=== PATIENT | female | born 1965 | race Caucasian/White ===

== ENCOUNTER 2017-05-26 10:30 | Inpatient (IN) | payer OTHER ==
[~2017-05-26] VITALS: Ht 162.6 cm; Wt 88.0 kg
[2017-06-13 11:32] VITALS: BMI 34.4
[2017-06-14] VITALS (15 sets, daily range): BP systolic 121–166; BP diastolic 64–86; PULSE 68–84; RESP 16–23; Ht 162.6 cm; Wt 88.0 kg
[2017-06-14] MEDS ORDERED: CEFAZOLIN 1 GM INJ ONE (07:00)
[2017-06-14] MEDS ORDERED: ROCURONIUM 50 MG INJ ONE ×3 (07:00→11:05)
[2017-06-14] MEDS ORDERED: DESFLURANE 15 MIN ONE (07:00)
[2017-06-14] MEDS ORDERED: D5-NS + KCL 20 MEQ 1,000 ML IV SCH (07:30)
[2017-06-14] MEDS ORDERED: CEFAZOLIN 2 GM/50 ML (PMX) 50 ML IVPB ONE (07:30)
[2017-06-14] MEDS ORDERED: Metronidazole 500 MG in NS 100 ML IVPB ONE (07:30)
[2017-06-14] MEDS ORDERED: HYDR-906 PO (08:34)
[2017-06-14] MEDS ORDERED: ASPI-664 PO (08:34)
[2017-06-14] MEDS ORDERED: ATOR40TA68 PO (08:34)
[2017-06-14] MEDS ORDERED: LOSA100T7 PO (08:35)
[2017-06-14] MEDS ORDERED: ATEN50TA PO (08:35)
[2017-06-14] MEDS ORDERED: SITA1TAB5 PO (08:36)
[2017-06-14] MEDS ORDERED: LEVO75TA65 PO (08:37)
[2017-06-14] MEDS ORDERED: MAXZ25 PO (08:38)
[2017-06-14] MEDS ORDERED: VASOPRESSIN 20 UNITS INJ ONE (09:10)
[2017-06-14] MEDS ORDERED: THROMBIN 5000 UNIT VIAL ONE (09:10)
[2017-06-14] MEDS ORDERED: METHYLENE BLUE 1% 10 ML INJ ONE (09:10)
[2017-06-14 09:28] LABS: BASOPHILS % 0.3 % (0.0-2.0); EOSINOPHILS # 0.2 10^3/ul (0.0-0.5); EOSINOPHILS % 2.9 % (0.0-7.0); HEMATOCRIT 37.1 % (37.0-47.0); HEMOGLOBIN 12.2 g/dl (12.0-16.0); LYMPHOCYTES # 1.6 10^3/ul (0.8-2.9); LYMPHOCYTES % 25.5 % (15.0-51.0); MEAN CORPUSCULAR HEMOGLOBIN 24.9 pg (29.0-33.0); MEAN CORPUSCULAR HGB CONC 32.9 g/dl (32.0-37.0); MEAN CORPUSCULAR VOLUME 75.7 fl (82.0-101.0); MONOCYTE # 0.4 10^3/ul (0.3-0.9); MONOCYTES % 6.2 % (0.0-11.0); NEUTROPHILS % 64.9 % (39.0-77.0); PLATELET COUNT 258 10^3/UL (140-415); RED CELL DISTRIBUTION WIDTH 12.9 % (11.5-14.5); WHITE BLOOD COUNT 6.3 10^3/ul (4.8-10.8)
[2017-06-14 09:31] LABS: ADD UMIC YES; UR ASCORBIC ACID NEGATIVE (NEGATIVE); UR BILIRUBIN (Dip) NEGATIVE (NEGATIVE); UR BLOOD (Dip) 1+ mg/dL (NEGATIVE); UR CLARITY CLEAR (CLEAR); UR COLOR YELLOW (YELLOW); UR GLUCOSE (Dip) NEGATIVE (NEGATIVE); UR KETONES (Dip) NEGATIVE (NEGATIVE); UR LEUKOCYTE ESTERASE (Dip) NEGATIVE Leu/ul (NEGATIVE); UR NITRITE (Dip) NEGATIVE (NEGATIVE); UR RBC 4 /HPF (0-5); UR SPECIFIC GRAVITY (Dip) 1.012 (1.003-1.030); UR TOTAL PROTEIN (Dip) NEGATIVE (NEGATIVE); UR UROBILINOGEN (Dip) NEGATIVE (NEGATIVE)
[2017-06-14] MEDS ORDERED: ONDANSETRON 4 MG INJ ONE (09:31)
[2017-06-14] MEDS ORDERED: GLYCOPYRROLATE 0.4 MG INJ ONE (09:31)
[2017-06-14] MEDS ORDERED: MIDAZOLAM 1 MG/ML 2 ML INJ ONE (09:31)
[2017-06-14] MEDS ORDERED: PROPOFOL 20 ML ONE (09:31)
[2017-06-14] MEDS ORDERED: NEOSTIGMINE 3 MG/3 ML SYRINGE ONE (09:31)
[2017-06-14] MEDS ORDERED: METOCLOPRAMIDE 10 MG INJ ONE (09:31)
[2017-06-14] MEDS ORDERED: HYDROmorphONE 2 MG/ML SYG ONE (09:32)
[2017-06-14 09:46] LABS: PROTIME 13.2 Sec (12.2-14.2)
[2017-06-14 09:52] LABS: ALBUMIN 3.6 g/dl (3.3-4.9); ALBUMIN/GLOBULIN RATIO 0.97; BILIRUBIN,INDIRECT 0.2 mg/dl (0-1.1); BILIRUBIN,TOTAL 0.2 mg/dl (0.2-1.3); TOTAL PROTEIN 7.3 g/dl (6.1-8.1)
--- NOTE | 2017-06-14 09:55 | HPN ---
Date/Time of Note Date/Time of Note DATE: 06/14/17 TIME: 09:55 Interval H&P Admission Note Pt. seen H&P reviewed: No system changes HAILY KIMBROUGH MD Jun 14, 2017 09:55
[2017-06-14 10:01] LABS: CALCIUM 8.6 mg/dl (8.4-10.2); CREATININE 1.12 mg/dl (0.44-1.00)
--- NOTE | 2017-06-14 10:05 | HP ---
Date/Time of Note Date/Time of Note DATE: 06/14/17 TIME: 10:04 Assessment/Plan VTE Prophylaxis VTE Prophylaxis Intervention: SCD's Lines/Catheters IV C[facility]ter Type (from [facility] Peripheral IV HPI/ROS Admit Date/Time Admit Date/Time Jun 14, 2017 at 07:38 Hx of Present Illness Haily Kimbrough M.D. 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 Pet/CT shows extrauterine disease and a solitary 9 mm RLL chest lesion. Medical history/ROS: Hypertension, Thyroid d/o, Diabetes,High cholesterol. Surgical history: no significant abdominal procedures. Flu yes, 07/2016, Pneumococcal no, declined Allergies: 05/01/17 Lisinopril medications Family Hx: non-contributary Social HX: non-contributary ROS: as above Colonoscopy: never Physical Examination Vitals (05/01/2017): Weight 199, Height 62, BP 120/80, BMI 36.4. General: Alert. HEENT: Pupils are equal, round, reactive to light and accommodation. Neck: Supple with no masses of lymphadenopathy. Breast: Deferred due to recent examination and responsibility of primary care physician. Chest: Clear to auscultation and percussion with no rales, ronchi, or wheeze. Heart: Normal rhythm with no murmur. Abdominal exam: nontender, nondistended, no masses, no ascites. location: N/A Pelvic exam: Uterus enlarged and globlar, no masses or cul-de-sac nodularity noted Rectal: confirmatory with pelvic exam. Neurological: Grossly intact Assessment: endometrial cancer stage to be determined Plan: CARLA/BSO LND possible cytoreduction, possible BR. Possible chest All risks and benefits of this procedure have been discussed in detail with the patient, as well as alternative treatment strategies and their implications. The patient is aware that there is some possibility of a blood transfusion and its associated risks and benefits. She wishes to proceed and gives her informed consent. Haily Kimbrough M.D. PMH/Family/Social Social History Smoking Status: Never smoker Exam/Review of Systems Vital Signs Vitals Vital Signs Date Time Temp Pulse Resp B/P Pulse Ox O2 Delivery O2 Flow Rate FiO2 06/14/17 08:58 97.6 68 19 166/79 100 Room Air Labs Result Diagram: 06/14/1782406/14/17824 Medications Medications Current Medications Potassium Chloride/Dextrose/ Sod Cl (D5-NS + KCl 20 Meq) 1,000 ml @ 100 mls/hr Q10H IV ; Start 06/14/17 at 07:30; Stop 06/14/17 at 23:00 HAILY KIMBROUGH MD Jun 14, 2017 10:05
[2017-06-14 11:44] LABS: CANCER ANTIGEN 125 26.7 U/ml (0.0-35.0)
[2017-06-14] MEDS ORDERED: METOPROLOL 5 MG INJ ONE (11:57)
[2017-06-14] MEDS ORDERED: ROPIVACAINE 0.5 % 30 ML VIAL ONE (14:13)
[2017-06-14] MEDS ORDERED: METOCLOPRAMIDE 10 MG INJ IV PRN (15:00)
[2017-06-14] MEDS ORDERED: LABETALOL HCL 20MG INJ IV PRN (15:00)
[2017-06-14] MEDS ORDERED: ONDANSETRON 4 MG INJ IV PRN ×2 (15:00)
[2017-06-14] MEDS ORDERED: CEFAZOLIN 1 GM in SOD CHLORIDE 0.9% 100 ML IVPB SCH (15:00)
[2017-06-14] MEDS ORDERED: hydrALAzine 20 MG INJ IV PRN (15:00)
[2017-06-14] MEDS ORDERED: MEPERIDINE 25 MG INJ IV PRN (15:00)
[2017-06-14] MEDS ORDERED: DIPHENHYDRAMINE 50 MG INJ IV PRN ×2 (15:00)
[2017-06-14] MEDS ORDERED: HYDROmorphONE (0.2 MG/ML) 10ML SYG IV PRN ×3 (15:00)
--- NOTE | 2017-06-14 15:10 | OPPN ---
Date/Time of Note Date/Time of Note DATE: 06/14/17 TIME: 15:06 Operative Report Preoperative Diagnosis endometrial ca Postoperative Diagnosis same st IV, ureteral stricture Operation/Procedure Performed Extended hyst/BSO LND, UDx2, Pel/aortic LND, Omentectomy, cytoreduction Anesthesia Type: general Estimated blood loss: 250 - 300 ml's Transfusion Required: no Specimens multiple Grafts/Implants na Complications: no HAILY KIMBROUGH MD Jun 14, 2017 15:10
[2017-06-14 16:38] LABS: ABNORMAL IP MESSAGE 1; HEMATOCRIT 35.4 % (37.0-47.0); HEMOGLOBIN 11.4 g/dl (12.0-16.0); MEAN CORPUSCULAR HEMOGLOBIN 24.6 pg (29.0-33.0); MEAN CORPUSCULAR HGB CONC 32.2 g/dl (32.0-37.0); MEAN CORPUSCULAR VOLUME 76.5 fl (82.0-101.0); MEAN PLATELET VOLUME 10.9 fl (7.4-10.4); PLATELET COUNT 318 10^3/UL (140-415); RED BLOOD COUNT 4.63 10^6/ul (4.20-5.40); RED CELL DISTRIBUTION WIDTH 13.2 % (11.5-14.5)
[2017-06-14 16:50] LABS: HOLD TRANSMISSIONS 1; POSITIVE DIFF @See below
[2017-06-14 16:57] LABS: CREATININE 0.92 mg/dl (0.44-1.00); POTASSIUM 3.6 mmol/L (3.5-5.1)
[2017-06-14 16:59] LABS: CALCIUM 7.6 mg/dl (8.4-10.2)
[2017-06-14] MEDS ORDERED: DEXTROSE 50% 50 ML SYRINGE IV PRN ×2 (17:30)
[2017-06-14] MEDS ORDERED: GLUCOSE GEL 15 GRAM TUBE PO PRN ×2 (17:30)
[2017-06-14] MEDS ORDERED: GLUCAGON 1 MG INJ IM PRN (17:30)
[2017-06-14] MEDS ORDERED: GLUCOSE GEL 15 GRAM TUBE BUCCAL PRN (17:30)
--- NOTE | 2017-06-14 17:41 | RADRPT ---
PROCEDURE: Portable chest x-ray. CLINICAL INDICATION: 52 years of age, female. Central line placement. TECHNIQUE: Portable AP view of the chest. COMPARISON: None available. FINDINGS: There is a right internal jugular central venous line with the tip over the inferior right atrium. Suggest withdrawing the line 6.6 cm to the cavoatrial junction. Enteric tube courses below diaphragm with tip not imaged. Cardiomediastinal contours are normal. Decreased lung volumes with vascular crowding. Negative for focal lung consolidation. Negative for pleural effusion or pneumothorax. No acute bony abnormality. IMPRESSION: Right internal jugular line is situated low with tip over right atrium. Suggest withdrawing the deshawn e 6.6 cm to the cavoatrial junction. Enteric tube in good position. Decreased lung volumes. RPTAT: HCTS Physician Dwight Date Time Electronically viewed and signed by Physician Dwight on 06/14/2017 17:41 /
[2017-06-14] MEDS ORDERED: INSULIN ASPART [NOVOLOG] 3 ML PEN SC SCH (18:00)
[2017-06-14] MEDS: CEFAZOLIN 1 GM/50 ML (PMX) 50 ML IVPB SCH (18:42)
[2017-06-14 18:46] LABS: LYMPHOCYTES # 1.5 10^3/ul (0.8-2.9); MONOCYTE # 0.6 10^3/ul (0.3-0.9); MONOCYTES % (M) 2 % (0-11)
[2017-06-14 18:47] LABS: PLATELET ESTIMATE NORMAL
[2017-06-14] MEDS: HYDROmorphONE 1 MG/ML SYG IV PRN (18:55)
[2017-06-14] MEDS: POTASSIUM CHLORIDE 20 MEQ in LACTATED RINGER'S 1,000 ML IV SCH ×2 (20:00→21:28)
[2017-06-14] MEDS: metroNIDAZOLE 500 MG/NS (PMX) 100 ML IVPB SCH ×2 (20:01→23:00)
[2017-06-14] MEDS: FAMOTIDINE 20 MG INJ IV SCH (21:35)
--- NOTE | 2017-06-14 21:44 | HP ---
DATE OF ADMISSION: 06/14/2017 CHIEF COMPLAINT AND HISTORY OF PRESENT ILLNESS: The patient is a 52-year-old female with stage IV uterine cancer. The patient is being followed by Dr. Amaral as an outpatient. Patient recently had an endometrial biopsy and also had a PET-CT scan, which showed extrauterine disease as well as solitary 9 mm right lower lobe chest lesion. The patient was brought into the hospital today and underwent hysterectomy, bilateral salpingo oophorectomy, omentectomy and cytoreduction. The patient was also noted to have ureteral stricture. The patient underwent ureteral dissection bilaterally and also pelvic and aortic lymph node dissection. Please review operative report for further details. NG tube was placed. The patient is being kept n.p.o. and has been transferred to medical-surgical floor for further care. PAST MEDICAL HISTORY: Significant for: 1. Hypertension. 2. Diabetes. 3. Dyslipidemia. 4. Hypothyroidism. REVIEW OF SYSTEMS: The patient denied any chest pain, no resting leg pain. Patient remains awake, alert, and follows simple commands. Moves all extremities. No reported headache. No reported cough or shortness of breath prior to surgery. Review of systems were limited due to patient's postoperative condition. FAMILY HISTORY: Noncontributory. ALLERGIES: LISINOPRIL. SOCIAL HISTORY: No smoking. No alcohol. PHYSICAL EXAMINATION: GENERAL: Patient is conscious, awake, alert. VITAL SIGNS: Temperature 98, pulse 97, respirations 16, blood pressure 126/86, O2 sat 97 percent on room air. HEENT: No eye discharge or redness noted. NECK: No mass. CHEST: Fairly clear. CV: S1, S2 normal. No murmur. ABDOMEN: Patient is status post surgery. Examination was deferred due to recent surgery. EXTREMITIES: No edema. Distal pulses palpable. SKIN: Without acute rash. NEUROLOGIC: The patient is awake, alert, follows simple commands. LABS: Prior to surgery. WBC 6.3, hemoglobin 12.2, platelets 258. Sodium 142, potassium 4, BUN 11, creatinine 1.1. Glucose 141, calcium 8.6. AST 32, ALT 32, alk phos 70. Chest x-ray revealed the right IJ line with tip over right atrium. IMPRESSION: 1. Stage IV endometrial cancer, status post total abdominal hysterectomy, bilateral salpingo-oophorectomy, ureteral dissection, cytoreduction and lymph node dissection. 2. Hypertension. 3. Diabetes mellitus. 4. Dyslipidemia. 5. Hypothyroidism. PLAN: Patient admitted to the medical floor. The patient will be kept n.p.o. and will be started on sliding scale insulin. The patient's blood sugar is high due to receiving D5W preoperatively, but now she is getting ringer lactate. We will continue sliding scale. Prior to admission, the patient used to be on Janumet. We will hold off for antihypertensive medication for now and we will use IV hydralazine on p.r.n. basis. We will also hold off on Levoxyl for now until she is able to take p.o. If the patient needs to be on prolonged n.p.o. status, we will switch her to IV Levoxyl. We will use SCD for DVT prophylaxis. We will continue to follow her from medical standpoint. Dictated By: Raymundo Dunlap MD /[email or web address]/becca /Document#: [id number] ENOC
[2017-06-15 00:33] VITALS: BP 133/84; RESP 16
[2017-06-15] MEDS: HYDROmorphONE 1 MG/ML SYG IV PRN ×4 (00:49→19:23)
[2017-06-15] MEDS: CEFAZOLIN 1 GM/50 ML (PMX) 50 ML IVPB SCH ×2 (00:49→09:17)
[2017-06-15] MEDS ORDERED: ACCU-CHEK XX SCH (02:00)
[2017-06-15] MEDS: metroNIDAZOLE 500 MG/NS (PMX) 100 ML IVPB SCH (03:59)
[2017-06-15] MEDS: POTASSIUM CHLORIDE 20 MEQ in LACTATED RINGER'S 1,000 ML IV SCH ×4 (04:00→22:06)
[2017-06-15] MEDS ORDERED: INSULIN ASPART [NOVOLOG] 3 ML PEN SC SCH (06:00)
[2017-06-15 06:06] LABS: BASOPHILS % 0.1 % (0.0-2.0); HEMOGLOBIN 10.5 g/dl (12.0-16.0); LYMPHOCYTES # 1.3 10^3/ul (0.8-2.9); LYMPHOCYTES % 11.6 % (15.0-51.0); MEAN CORPUSCULAR HEMOGLOBIN 24.7 pg (29.0-33.0); MEAN CORPUSCULAR HGB CONC 32.8 g/dl (32.0-37.0); MEAN CORPUSCULAR VOLUME 75.3 fl (82.0-101.0); MEAN PLATELET VOLUME 10.7 fl (7.4-10.4); MONOCYTE # 0.8 10^3/ul (0.3-0.9); MONOCYTES % 6.7 % (0.0-11.0); NEUTROPHILS % 81.3 % (39.0-77.0); PLATELET COUNT 258 10^3/UL (140-415); RED BLOOD COUNT 4.25 10^6/ul (4.20-5.40); RED CELL DISTRIBUTION WIDTH 13.2 % (11.5-14.5); WHITE BLOOD COUNT 11.5 10^3/ul (4.8-10.8)
[2017-06-15 06:21] LABS: INR 1.11; PROTIME 14.3 Sec (12.2-14.2); PT RATIO 1.1
[2017-06-15 06:27] LABS: ALBUMIN 2.8 g/dl (3.3-4.9); ALBUMIN/GLOBULIN RATIO 0.93; BILIRUBIN,INDIRECT 0.2 mg/dl (0-1.1); BILIRUBIN,TOTAL 0.2 mg/dl (0.2-1.3); CALCIUM 7.9 mg/dl (8.4-10.2); CREATININE 1.06 mg/dl (0.44-1.00); POTASSIUM 4.3 mmol/L (3.5-5.1); TOTAL PROTEIN 5.8 g/dl (6.1-8.1)
[2017-06-15] MEDS: Insulin NOVOLOG SS MILD Algorithm (NPO/TPN/ENTERAL FEEDS) SC SCH ×4 (06:27→23:55)
[2017-06-15 07:43] VITALS: BP 118/74; RESP 18
[2017-06-15] MEDS: FAMOTIDINE 20 MG INJ IV SCH ×2 (09:16→21:27)
[2017-06-15] MEDS ORDERED: metroNIDAZOLE 500 MG/NS (PMX) 100 ML IVPB SCH (12:00)
[2017-06-15 14:45] VITALS: BP 133/73; RESP 18
--- NOTE | 2017-06-15 17:21 | PN ---
Date/Time of Note Date/Time of Note DATE: 06/15/17 TIME: 17:17 Assessment/Plan VTE Prophylaxis VTE Prophylaxis Intervention: other Lines/Catheters IV Catheter Type (from Nrsg): Central Line Central line still needed: Yes Urinary Cath still in place: Yes Reason Cath still needed: urinary retention Assessment/Plan Assessment/Plan 1. Stage IV endometrial cancer, status post total abdominal hysterectomy, bilateral salpingo-oophorectomy, ureteral dissection, cytoreduction and lymph node dissection. 2. Hypertension. 3. Diabetes mellitus. 4. Dyslipidemia. 5. Hypothyroidism. ANJANA Dunlap Subjective 24 Hr Interval Summary Free Text/Dictation Constitutional: requiring IVF, requiring O2 Respiratory: cough, no complaints Cardiovascular: no complaints Gastrointestinal: pain Genitourinary: no complaints Musculoskeletal: no complaints Exam/Review of Systems Vital Signs Vitals Vital Signs Date Time Temp Pulse Resp B/P Pulse Ox O2 Delivery O2 Flow Rate FiO2 06/15/17 14:45 99.2 100 18 133/73 94 06/14/17 17:11 Room Air Intake and Output 06/14/17 06/14/17 06/15/17 15:00 23:00 07:00 Intake Total 3250 ml 150 ml 1310 ml Output Total 750 ml 900 ml Balance 2500 ml 150 ml 410 ml Exam Constitutional: alert, obese, oriented Respiratory: diminished breath sounds Cardiovascular: nl pulses, regular rate and rhythm Gastrointestinal: soft, tender (surgical abdomen) Musculoskeletal: nl extremities to inspection Extremities: normal pulses Neurological: nl mental status, nl speech Results Result Diagram: 06/15/17 0532 06/15/17 0532 Results 24 hrs Laboratory Tests Test 06/14/17 20:07 06/15/17 02:26 06/15/17 05:25 06/15/17 05:32 Bedside Glucose 276 H 215 Lab Scanned Report LAB White Blood Count 11.5 #H Red Blood Count 4.25 Hemoglobin 10.5 L Hematocrit 32.0 L Mean Corpuscular Volume 75.3 L Mean Corpuscular Hemoglobin 24.7 L Mean Corpuscular Hemoglobin Concent 32.8 Red Cell Distribution Width 13.2 Platelet Count 258 Mean Platelet Volume 10.7 H Neutrophils % 81.3 H Lymphocytes % 11.6 L Monocytes % 6.7 Eosinophils % 0.0 Basophils % 0.1 Nucleated Red Blood Cells % 0.0 Neutrophils # (Manual) 9 H Lymphocytes # 1.3 Monocytes # 0.8 Eosinophils # 0.0 Basophils # 0.0 Nucleated Red Blood Cells # 0.0 Prothrombin Time 14.3 H Prothrombin Time Ratio 1.1 INR International Normalized Ratio 1.11 Sodium Level 138 Potassium Level 4.3 Chloride Level 104 Carbon Dioxide Level 27 Anion Gap 11 Blood Urea Nitrogen 11 Creatinine 1.06 H Glucose Level 209 Calcium Level 7.9 L Total Bilirubin 0.2 Direct Bilirubin 0.00 Indirect Bilirubin 0.2 Aspartate Amino Transf (AST/SGOT) 23 Alanine Aminotransferase (ALT/SGPT) 28 Alkaline Phosphatase 48 Total Protein 5.8 #L Albumin 2.8 L Globulin 3.00 Albumin/Globulin Ratio 0.93 Medications Medications Current Medications Hydromorphone HCl (Dilaudid) 1 mg Q6H PRN IV PAIN LEVEL 6-10 Last administered on 06/15/17 12:19; Admin Dose 1 MG; Start 06/14/17 at 15:00 Diphenhydramine HCl (Benadryl) 25 mg Q6H PRN IV ITCHING; Start 06/14/17 at 15: 00 Ondansetron HCl (Zofran Inj) 4 mg Q6H PRN IV NAUSEA AND/OR VOMITING; Start at 15:00 Famotidine 20 mg 20 mg Q12 IV Last administered on 06/15/17 09:16; Admin Dose 20 MG; Start 06/14/17 at 21:00 Potassium Chloride/Lactated Ringer's (KCl/Lr) 1,010 ml @ 150 mls/hr Q6H44M IV Last administered on 06/15/17 15:09; Admin Dose 150 MLS/HR; Start 06/14/17 at 14:52 Hydralazine HCl (Apresoline) 10 mg Q4H PRN IV SBP >150; Start 06/14/17 at 17:00 Miscellaneous Information 1 ea NOTE XX ; Start 06/14/17 at 17:30 Glucose (Glutose) 15 gm Q15M PRN PO DECREASED GLUCOSE; Start 06/14/17 at 17:30 Glucose (Glutose) 22.5 gm Q15M PRN PO DECREASED GLUCOSE; Start 06/14/17 at 17: 30 Dextrose (D50w Syringe) 25 ml Q15M PRN IV DECREASED GLUCOSE; Start 06/14/17 at 17:30 Dextrose (D50w Syringe) 50 ml Q15M PRN IV DECREASED GLUCOSE; Start 06/14/17 at 17:30 Glucagon (Glucagen) 1 mg Q15M PRN IM DECREASED GLUCOSE; Start 06/14/17 at 17:30 Glucose (Glutose) 15 gm Q15M PRN BUCCAL DECREASED GLUCOSE; Start 06/14/17 at 17 :30 Insulin Aspart (Novolog Insulin Pen) (Adult SC Insulin - Mild Algorithm)... Q6 SC Last administered on 06/15/17t 12:26; Admin Dose 1 UNIT; Start 06/15/17 at 06:00 Lidocaine (Xylocaine 1% (Mpf)) 5 ml ONCE ONCE SC ; Start 06/15/17 at 17:30; Stop 06/15/17 at 17:31; Status LUZ MARINA MARC Jun 15, 2017 17:21
[2017-06-15] MEDS ORDERED: LIDOCAINE 1% (MPF) 5 ML VIAL SC ONE (17:30)
--- NOTE | 2017-06-15 19:59 | PN ---
Date/Time of Note Date/Time of Note DATE: 06/15/17 TIME: 19:58 Assessment/Plan VTE Prophylaxis VTE Prophylaxis Intervention: SCD's Lines/Catheters IV Catheter Type (from Nrsg): Central Line Urinary Cath still in place: Yes Subjective 24 Hr Interval Summary Free Text/Dictation Anesthesia note: Central pulled back about 6 cm per radiologist recommendation, cabn repeat CXR to mconfirm position. Exam/Review of Systems Vital Signs Vitals Vital Signs Date Time Temp Pulse Resp B/P Pulse Ox O2 Delivery O2 Flow Rate FiO2 06/15/17 14:45 99.2 100 18 133/73 94 06/14/17 17:11 Room Air Intake and Output 06/14/17 06/14/17 06/15/17 15:00 23:00 07:00 Intake Total 3250 ml 150 ml 1310 ml Output Total 750 ml 900 ml Balance 2500 ml 150 ml 410 ml Results Result Diagram: 06/15/17 0532 06/15/17 0532 Results 24 hrs Laboratory Tests Test 06/14/17 20:07 06/15/17 02:26 06/15/17 05:25 06/15/17 05:32 Bedside Glucose 276 H 215 Lab Scanned Report LAB White Blood Count 11.5 #H Red Blood Count 4.25 Hemoglobin 10.5 L Hematocrit 32.0 L Mean Corpuscular Volume 75.3 L Mean Corpuscular Hemoglobin 24.7 L Mean Corpuscular Hemoglobin Concent 32.8 Red Cell Distribution Width 13.2 Platelet Count 258 Mean Platelet Volume 10.7 H Neutrophils % 81.3 H Lymphocytes % 11.6 L Monocytes % 6.7 Eosinophils % 0.0 Basophils % 0.1 Nucleated Red Blood Cells % 0.0 Neutrophils # (Manual) 9 H Lymphocytes # 1.3 Monocytes # 0.8 Eosinophils # 0.0 Basophils # 0.0 Nucleated Red Blood Cells # 0.0 Prothrombin Time 14.3 H Prothrombin Time Ratio 1.1 INR International Normalized Ratio 1.11 Sodium Level 138 Potassium Level 4.3 Chloride Level 104 Carbon Dioxide Level 27 Anion Gap 11 Blood Urea Nitrogen 11 Creatinine 1.06 H Glucose Level 209 Calcium Level 7.9 L Total Bilirubin 0.2 Direct Bilirubin 0.00 Indirect Bilirubin 0.2 Aspartate Amino Transf (AST/SGOT) 23 Alanine Aminotransferase (ALT/SGPT) 28 Alkaline Phosphatase 48 Total Protein 5.8 #L Albumin 2.8 L Globulin 3.00 Albumin/Globulin Ratio 0.93 Test 06/15/17 17:41 Bedside Glucose 157 Medications Medications Current Medications Hydromorphone HCl (Dilaudid) 1 mg Q6H PRN IV PAIN LEVEL 6-10 Last administered on 06/15/17 19:23; Admin Dose 1 MG; Start 06/14/17 at 15:00 Diphenhydramine HCl (Benadryl) 25 mg Q6H PRN IV ITCHING; Start 06/14/17 at 15: 00 Ondansetron HCl (Zofran Inj) 4 mg Q6H PRN IV NAUSEA AND/OR VOMITING; Start at 15:00 Famotidine 20 mg 20 mg Q12 IV Last administered on 06/15/17 09:16; Admin Dose 20 MG; Start 06/14/17 at 21:00 Potassium Chloride/Lactated Ringer's (KCl/Lr) 1,010 ml @ 150 mls/hr Q6H44M IV Last administered on 06/15/17 15:09; Admin Dose 150 MLS/HR; Start 06/14/17 at 14:52 Hydralazine HCl (Apresoline) 10 mg Q4H PRN IV SBP >150; Start 06/14/17 at 17:00 Miscellaneous Information 1 ea NOTE XX ; Start 06/14/17 at 17:30 Glucose (Glutose) 15 gm Q15M PRN PO DECREASED GLUCOSE; Start 06/14/17 at 17:30 Glucose (Glutose) 22.5 gm Q15M PRN PO DECREASED GLUCOSE; Start 06/14/17 at 17: 30 Dextrose (D50w Syringe) 25 ml Q15M PRN IV DECREASED GLUCOSE; Start 06/14/17 at 17:30 Dextrose (D50w Syringe) 50 ml Q15M PRN IV DECREASED GLUCOSE; Start 06/14/17 at 17:30 Glucagon (Glucagen) 1 mg Q15M PRN IM DECREASED GLUCOSE; Start 06/14/17 at 17:30 Glucose (Glutose) 15 gm Q15M PRN BUCCAL DECREASED GLUCOSE; Start 06/14/17 at 17 :30 Insulin Aspart (Novolog Insulin Pen) (Adult SC Insulin - Mild Algorithm)... Q6 SC Last administered on 06/15/17 17:44; Admin Dose 1 UNIT; Start 06/15/17 at 06:00 FRANDY HODGSON MD Jun 15, 2017 19:59
[2017-06-15 20:26] VITALS: BP 137/76; RESP 20
--- NOTE | 2017-06-15 21:24 | PN ---
Date/Time of Note Date/Time of Note DATE: 06/15/17 TIME: 21:21 Assessment/Plan VTE Prophylaxis VTE Prophylaxis Intervention: SCD's Lines/Catheters IV Catheter Type (from Nrsg): Central Line Central line still needed: Yes Urinary Cath still in place: Yes Reason Cath still needed: urinary retention, other (indicate) Assessment/Plan Chief Complaint/Hosp Course stage IV endometrial cancer Problems: Assessment/Plan A- doing well P- d/c ngt and clear liq tomorrow Subjective 24 Hr Interval Summary Free Text/Dictation + belch, no flatus,adequate pain control. Exam/Review of Systems Vital Signs Vitals Vital Signs Date Time Temp Pulse Resp B/P Pulse Ox O2 Delivery O2 Flow Rate FiO2 06/15/17 20:26 98.5 117 20 137/76 93 06/14/17 17:11 Room Air Intake and Output 06/14/17 06/14/17 06/15/17 15:00 23:00 07:00 Intake Total 3250 ml 150 ml 1310 ml Output Total 750 ml 900 ml Balance 2500 ml 150 ml 410 ml Exam Resp- clear CVS- NSR Abd- soft, NT clean Ext- NT no edema Results Result Diagram: 06/15/17 0532 06/15/17 0532 Results 24 hrs Laboratory Tests Test 06/15/17 02:26 06/15/17 05:25 06/15/17 05:32 06/15/17 17:41 Bedside Glucose 215 157 Lab Scanned Report LAB White Blood Count 11.5 #H Red Blood Count 4.25 Hemoglobin 10.5 L Hematocrit 32.0 L Mean Corpuscular Volume 75.3 L Mean Corpuscular Hemoglobin 24.7 L Mean Corpuscular Hemoglobin Concent 32.8 Red Cell Distribution Width 13.2 Platelet Count 258 Mean Platelet Volume 10.7 H Neutrophils % 81.3 H Lymphocytes % 11.6 L Monocytes % 6.7 Eosinophils % 0.0 Basophils % 0.1 Nucleated Red Blood Cells % 0.0 Neutrophils # (Manual) 9 H Lymphocytes # 1.3 Monocytes # 0.8 Eosinophils # 0.0 Basophils # 0.0 Nucleated Red Blood Cells # 0.0 Prothrombin Time 14.3 H Prothrombin Time Ratio 1.1 INR International Normalized Ratio 1.11 Sodium Level 138 Potassium Level 4.3 Chloride Level 104 Carbon Dioxide Level 27 Anion Gap 11 Blood Urea Nitrogen 11 Creatinine 1.06 H Glucose Level 209 Calcium Level 7.9 L Total Bilirubin 0.2 Direct Bilirubin 0.00 Indirect Bilirubin 0.2 Aspartate Amino Transf (AST/SGOT) 23 Alanine Aminotransferase (ALT/SGPT) 28 Alkaline Phosphatase 48 Total Protein 5.8 #L Albumin 2.8 L Globulin 3.00 Albumin/Globulin Ratio 0.93 Medications Medications Current Medications Hydromorphone HCl (Dilaudid) 1 mg Q6H PRN IV PAIN LEVEL 6-10 Last administered on 06/15/17 19:23; Admin Dose 1 MG; Start 06/14/17 at 15:00 Diphenhydramine HCl (Benadryl) 25 mg Q6H PRN IV ITCHING; Start 06/14/17 at 15: 00 Ondansetron HCl (Zofran Inj) 4 mg Q6H PRN IV NAUSEA AND/OR VOMITING; Start at 15:00 Famotidine 20 mg 20 mg Q12 IV Last administered on 06/15/17 09:16; Admin Dose 20 MG; Start 06/14/17 at 21:00 Potassium Chloride/Lactated Ringer's (KCl/Lr) 1,010 ml @ 150 mls/hr Q6H44M IV Last administered on 06/15/17 15:09; Admin Dose 150 MLS/HR; Start 06/14/17 at 14:52 Hydralazine HCl (Apresoline) 10 mg Q4H PRN IV SBP >150; Start 06/14/17 at 17:00 Miscellaneous Information 1 ea NOTE XX ; Start 06/14/17 at 17:30 Glucose (Glutose) 15 gm Q15M PRN PO DECREASED GLUCOSE; Start 06/14/17 at 17:30 Glucose (Glutose) 22.5 gm Q15M PRN PO DECREASED GLUCOSE; Start 06/14/17 at 17: 30 Dextrose (D50w Syringe) 25 ml Q15M PRN IV DECREASED GLUCOSE; Start 06/14/17 at 17:30 Dextrose (D50w Syringe) 50 ml Q15M PRN IV DECREASED GLUCOSE; Start 06/14/17 at 17:30 Glucagon (Glucagen) 1 mg Q15M PRN IM DECREASED GLUCOSE; Start 06/14/17 at 17:30 Glucose (Glutose) 15 gm Q15M PRN BUCCAL DECREASED GLUCOSE; Start 06/14/17 at 17 :30 Insulin Aspart (Novolog Insulin Pen) (Adult SC Insulin - Mild Algorithm)... Q6 SC Last administered on 06/15/17t 17:44; Admin Dose 1 UNIT; Start 06/15/17 at 06:00 HAILY KIMBROUGH MD Jun 15, 2017 21:24
[2017-06-16 01:33] VITALS: BP 140/79; RESP 20
[2017-06-16] MEDS: POTASSIUM CHLORIDE 20 MEQ in LACTATED RINGER'S 1,000 ML IV SCH ×3 (02:05→21:23)
[2017-06-16 06:05] LABS: BASOPHILS % 0.2 % (0.0-2.0); EOSINOPHILS % 0.3 % (0.0-7.0); HEMATOCRIT 27.3 % (37.0-47.0); HEMOGLOBIN 9.1 g/dl (12.0-16.0); LYMPHOCYTES # 1.3 10^3/ul (0.8-2.9); MEAN CORPUSCULAR HEMOGLOBIN 25.4 pg (29.0-33.0); MEAN CORPUSCULAR HGB CONC 33.3 g/dl (32.0-37.0); MEAN CORPUSCULAR VOLUME 76.3 fl (82.0-101.0); MEAN PLATELET VOLUME 10.8 fl (7.4-10.4); MONOCYTE # 0.6 10^3/ul (0.3-0.9); MONOCYTES % 5.7 % (0.0-11.0); NEUTROPHILS % 81.5 % (39.0-77.0); PLATELET COUNT 215 10^3/UL (140-415); RED BLOOD COUNT 3.58 10^6/ul (4.20-5.40); RED CELL DISTRIBUTION WIDTH 12.9 % (11.5-14.5); WHITE BLOOD COUNT 11.2 10^3/ul (4.8-10.8)
[2017-06-16] MEDS: HYDROmorphONE 1 MG/ML SYG IV PRN ×2 (06:27→16:59)
[2017-06-16] MEDS: Insulin NOVOLOG SS MILD Algorithm (NPO/TPN/ENTERAL FEEDS) SC SCH ×3 (06:33→18:06)
[2017-06-16 06:54] LABS: ALBUMIN 2.6 g/dl (3.3-4.9); ALBUMIN/GLOBULIN RATIO 0.83; BILIRUBIN,INDIRECT 0.1 mg/dl (0-1.1); BILIRUBIN,TOTAL 0.1 mg/dl (0.2-1.3); CALCIUM 8.1 mg/dl (8.4-10.2); CREATININE 0.93 mg/dl (0.44-1.00); TOTAL PROTEIN 5.7 g/dl (6.1-8.1)
[2017-06-16 07:55] VITALS: BP 120/63; RESP 18
[2017-06-16] MEDS: FAMOTIDINE 20 MG INJ IV SCH ×2 (09:06→21:23)
--- NOTE | 2017-06-16 10:05 | RADRPT ---
PROCEDURE: XR Chest 1 View. CLINICAL INDICATION: Shortness of breath, status post central line placement. TECHNIQUE: AP view of the chest was obtained. COMPARISON: June 14, 2017 FINDINGS: The cardiomediastinal silhouette is within normal limits. Right-sided central line has its tip in th e expected location of the distal superior vena cava. Nasogastric tube has its distal end in the ex pected location of the stomach. Elevated right hemidiaphragm is identified. Atelectasis is noted a t the lung bases. No consolidations are identified. No pneumothorax is seen. Osseous structures ar e intact. IMPRESSION: Right-sided central line with its tip in the expected location of the distal superior vena cava. No visualized pneumothorax. Elevated right hemidiaphragm. Atelectasis at the lung bases. RPTAT: AA .Jose M Calvillo MD, Date Time Electronically viewed and signed by .Jose M Calvillo MD, on 06/16/2017 10:05 .P/
[2017-06-16 14:47] VITALS: BP 146/76
--- NOTE | 2017-06-16 15:35 | PN ---
Date/Time of Note Date/Time of Note DATE: 06/16/17 TIME: 15:30 Assessment/Plan VTE Prophylaxis VTE Prophylaxis Intervention: SCD's Lines/Catheters IV Catheter Type (from Nrs): Central Line Central line still needed: Yes Urinary Cath still in place: Yes Reason Cath still needed: urinary retention Assessment/Plan Chief Complaint/Hosp Course Patient started on ice chips, hypoactive bowel sounds, negative flatus, NG tube DC'd. Assessment/Plan 1. Stage IV endometrial cancer, status post total abdominal hysterectomy, bilateral salpingo-oophorectomy, ureteral dissection, cytoreduction and lymph node dissection. Continue to follow-up surgical recommendations. Continue Dilaudid as needed for pain. 2. Hypertension. 3. Diabetes mellitus. Continue NovoLog per mild algorithm sliding scale. 4. Dyslipidemia. 5. Hypothyroidism. Continue continue levothyroxine. Further recommendations based on clinical course. Plan of care discussed with Dr. Dunlap. Problems: Exam/Review of Systems Vital Signs Vitals Vital Signs Date Time Temp Pulse Resp B/P Pulse Ox O2 Delivery O2 Flow Rate FiO2 06/16/17 14:47 99.6 111 146/76 95 06/16/17 07:55 18 06/14/17 17:11 Room Air Intake and Output 06/15/17 06/15/17 06/16/17 15:00 23:00 07:00 Intake Total 150 ml 1870 ml 700 ml Output Total 630 ml 1100 ml Balance 150 ml 1240 ml -400 ml Exam Constitutional: alert, oriented Neck: supple Respiratory: normal air movement Cardiovascular: nl pulses Gastrointestinal: non-tender, soft Genitourinary - Female: other (s/p surgery) Extremities: normal pulses Neurological: nl mental status Results Result Diagram: 06/16/17 0532 06/16/17 0532 Results 24 hrs Laboratory Tests Test 06/15/17 17:41 06/15/17 23:52 06/16/17 05:32 06/16/17 06:24 Bedside Glucose 157 157 173 White Blood Count 11.2 H Red Blood Count 3.58 L Hemoglobin 9.1 L Hematocrit 27.3 L Mean Corpuscular Volume 76.3 L Mean Corpuscular Hemoglobin 25.4 L Mean Corpuscular Hemoglobin Concent 33.3 Red Cell Distribution Width 12.9 Platelet Count 215 Mean Platelet Volume 10.8 H Neutrophils % 81.5 H Lymphocytes % 12.0 L Monocytes % 5.7 Eosinophils % 0.3 Basophils % 0.2 Nucleated Red Blood Cells % 0.0 Neutrophils # (Manual) 9.1 H Lymphocytes # 1.3 Monocytes # 0.6 Eosinophils # 0.0 Basophils # 0.0 Nucleated Red Blood Cells # 0.0 Sodium Level 140 Potassium Level 4.0 Chloride Level 103 Carbon Dioxide Level 27 Anion Gap 14 Blood Urea Nitrogen 8 Creatinine 0.93 Glucose Level 163 Calcium Level 8.1 L Total Bilirubin 0.1 L Direct Bilirubin 0.00 Indirect Bilirubin 0.1 Aspartate Amino Transf (AST/SGOT) 18 Alanine Aminotransferase (ALT/SGPT) 25 Alkaline Phosphatase 41 L Total Protein 5.7 L Albumin 2.6 L Globulin 3.10 Albumin/Globulin Ratio 0.83 Test 06/16/17 11:55 Bedside Glucose 152 Medications Medications Current Medications Hydromorphone HCl (Dilaudid) 1 mg Q6H PRN IV PAIN LEVEL 6-10 Last administered on 06/16/17 06:27; Admin Dose 1 MG; Start 06/14/17 at 15:00 Diphenhydramine HCl (Benadryl) 25 mg Q6H PRN IV ITCHING; Start 06/14/17 at 15: 00 Ondansetron HCl (Zofran Inj) 4 mg Q6H PRN IV NAUSEA AND/OR VOMITING; Start at 15:00 Famotidine 20 mg 20 mg Q12 IV Last administered on 06/16/17 09:06; Admin Dose 20 MG; Start 06/14/17 at 21:00 Potassium Chloride/Lactated Ringer's (KCl/Lr) 1,010 ml @ 100 mls/hr Q10H6M IV Last administered on 06/16/17 09:13; Admin Dose 100 MLS/HR; Start 06/14/17 at 14:52 Hydralazine HCl (Apresoline) 10 mg Q4H PRN IV SBP >150; Start 06/14/17 at 17:00 Miscellaneous Information 1 ea NOTE XX ; Start 06/14/17 at 17:30 Glucose (Glutose) 15 gm Q15M PRN PO DECREASED GLUCOSE; Start 06/14/17 at 17:30 Glucose (Glutose) 22.5 gm Q15M PRN PO DECREASED GLUCOSE; Start 06/14/17 at 17: 30 Dextrose (D50w Syringe) 25 ml Q15M PRN IV DECREASED GLUCOSE; Start 06/14/17 at 17:30 Dextrose (D50w Syringe) 50 ml Q15M PRN IV DECREASED GLUCOSE; Start 06/14/17 at 17:30 Glucagon (Glucagen) 1 mg Q15M PRN IM DECREASED GLUCOSE; Start 06/14/17 at 17:30 Glucose (Glutose) 15 gm Q15M PRN BUCCAL DECREASED GLUCOSE; Start 06/14/17 at 17 :30 Insulin Aspart (Novolog Insulin Pen) (Adult SC Insulin - Mild Algorithm)... Q6 SC Last administered on 06/16/17t 12:13; Admin Dose 1 UNIT; Start 06/15/17 at 06:00 LANI ORELLANA Jun 16, 2017 15:35
[2017-06-16 17:19] VITALS: BP 145/63; PULSE 105; RESP 18
--- NOTE | 2017-06-16 17:57 | PN ---
Date/Time of Note Date/Time of Note DATE: 06/16/17 TIME: 17:55 Assessment/Plan VTE Prophylaxis VTE Prophylaxis Intervention: SCD's Lines/Catheters IV Catheter Type (from Nrs): Central Line Central line still needed: Yes Urinary Cath still in place: Yes Reason Cath still needed: urinary retention Assessment/Plan Chief Complaint/Hosp Course stage IV endometrial cancer Problems: Assessment/Plan A- doing well other than acosta P- BC and urine CandS; empiric abx.. Subjective 24 Hr Interval Summary Free Text/Dictation Minimally OOB. no flatus. Exam/Review of Systems Vital Signs Vitals Vital Signs Date Time Temp Pulse Resp B/P Pulse Ox O2 Delivery O2 Flow Rate FiO2 06/16/17 17:19 100.9 105 18 145/63 96 Room Air Intake and Output 06/15/17 06/15/17 06/16/17 15:00 23:00 07:00 Intake Total 150 ml 1870 ml 700 ml Output Total 630 ml 1100 ml Balance 150 ml 1240 ml -400 ml Exam Resp- clear CVS- NSR Abd- soft, NT clean Ext- NT no edema Results Result Diagram: 06/16/17 0532 06/16/17 0532 Results 24 hrs Laboratory Tests Test 06/15/17 23:52 06/16/17 05:32 06/16/17 06:24 06/16/17 11:55 Bedside Glucose 157 173 152 White Blood Count 11.2 H Red Blood Count 3.58 L Hemoglobin 9.1 L Hematocrit 27.3 L Mean Corpuscular Volume 76.3 L Mean Corpuscular Hemoglobin 25.4 L Mean Corpuscular Hemoglobin Concent 33.3 Red Cell Distribution Width 12.9 Platelet Count 215 Mean Platelet Volume 10.8 H Neutrophils % 81.5 H Lymphocytes % 12.0 L Monocytes % 5.7 Eosinophils % 0.3 Basophils % 0.2 Nucleated Red Blood Cells % 0.0 Neutrophils # (Manual) 9.1 H Lymphocytes # 1.3 Monocytes # 0.6 Eosinophils # 0.0 Basophils # 0.0 Nucleated Red Blood Cells # 0.0 Sodium Level 140 Potassium Level 4.0 Chloride Level 103 Carbon Dioxide Level 27 Anion Gap 14 Blood Urea Nitrogen 8 Creatinine 0.93 Glucose Level 163 Calcium Level 8.1 L Total Bilirubin 0.1 L Direct Bilirubin 0.00 Indirect Bilirubin 0.1 Aspartate Amino Transf (AST/SGOT) 18 Alanine Aminotransferase (ALT/SGPT) 25 Alkaline Phosphatase 41 L Total Protein 5.7 L Albumin 2.6 L Globulin 3.10 Albumin/Globulin Ratio 0.83 Test 06/16/17 17:02 Bedside Glucose 144 Medications Medications Current Medications Hydromorphone HCl (Dilaudid) 1 mg Q6H PRN IV PAIN LEVEL 6-10 Last administered on 06/16/17 16:59; Admin Dose 1 MG; Start 06/14/17 at 15:00 Diphenhydramine HCl (Benadryl) 25 mg Q6H PRN IV ITCHING; Start 06/14/17 at 15: 00 Ondansetron HCl (Zofran Inj) 4 mg Q6H PRN IV NAUSEA AND/OR VOMITING; Start at 15:00 Famotidine 20 mg 20 mg Q12 IV Last administered on 06/16/17 09:06; Admin Dose 20 MG; Start 06/14/17 at 21:00 Potassium Chloride/Lactated Ringer's (KCl/Lr) 1,010 ml @ 100 mls/hr Q10H6M IV Last administered on 06/16/17 09:13; Admin Dose 100 MLS/HR; Start 06/14/17 at 14:52 Hydralazine HCl (Apresoline) 10 mg Q4H PRN IV SBP >150; Start 06/14/17 at 17:00 Miscellaneous Information 1 ea NOTE XX ; Start 06/14/17 at 17:30 Glucose (Glutose) 15 gm Q15M PRN PO DECREASED GLUCOSE; Start 06/14/17 at 17:30 Glucose (Glutose) 22.5 gm Q15M PRN PO DECREASED GLUCOSE; Start 06/14/17 at 17: 30 Dextrose (D50w Syringe) 25 ml Q15M PRN IV DECREASED GLUCOSE; Start 06/14/17 at 17:30 Dextrose (D50w Syringe) 50 ml Q15M PRN IV DECREASED GLUCOSE; Start 06/14/17 at 17:30 Glucagon (Glucagen) 1 mg Q15M PRN IM DECREASED GLUCOSE; Start 06/14/17 at 17:30 Glucose (Glutose) 15 gm Q15M PRN BUCCAL DECREASED GLUCOSE; Start 06/14/17 at 17 :30 Insulin Aspart (Novolog Insulin Pen) (Adult SC Insulin - Mild Algorithm)... Q6 SC Last administered on 06/16/17t 12:13; Admin Dose 1 UNIT; Start 06/15/17 at 06:00 Levothyroxine Sodium (Synthroid) 75 mcg DAILY@06 PO ; Start 06/17/17 at 06:00 Acetaminophen 650 mg 650 mg Q4H PRN PO PAIN AND OR ELEVATED TEMP; Start at 18:00 Levofloxacin/ Dextrose 150 ml @ 100 mls/hr Q24H IVPB ; Start 06/16/17 at 18:00 Metronidazole (Flagyl 500 Mg (Pmx)) 100 ml @ 100 mls/hr Q8 IVPB ; Start at 22:00 HAILY KIMBROUGH MD Jun 16, 2017 17:57
[2017-06-16] MEDS ORDERED: CEFTRIAXONE 1 GM/50 ML (PMX) 50 ML IVPB SCH (18:00)
[2017-06-16] MEDS: ACETAMINOPHEN 325 MG TAB PO PRN (18:02)
[2017-06-16] MEDS: LEVOFLOXACIN 750MG/D5W (PMX) 150 ML IVPB SCH (18:31)
[2017-06-16 20:12] VITALS: BP 135/79; RESP 18
[2017-06-16] MEDS: metroNIDAZOLE 500 MG/NS (PMX) 100 ML IVPB SCH (21:23)
--- NOTE | 2017-06-16 22:01 | OPR ---
Date/Time of Note Date/Time of Note DATE: 06/16/17 TIME: 22:00 Operative Report Free Text/Dictation OPERATIVE REPORT [facility] Name: [facility] [id number] Date: 06/14/17 Preoperative Diagnosis: Endometrial cancer possible advanced stage Postoperative Diagnosis: 1-Stage IV endometrial cancer 2- Ureteral stricture 3- Left adnexal mass with hypervascular left IP-ligament Procedures: 1- Extended hysterectomy with bilateral salpingoophorectomy 2- Bilateral ureteral dissection with repositioning 3- Omentectomy with cytoreduction 4- Pelvic and aortic lymph node dissection Surgeon: Dr. Anderson Church Organist: Dr. Sheth Anesthesia: General Indications for surgery: The patient is a 52- year old female with primary advanced stage endometrial cancer on the basis of physical findings with elevated markers, radiographic findings, and symptoms of whom a cytoreduction was undertaken after addressing all options with risks and benefits. Findings and Summary After opening and exploration we removed 500cc ascites and noted upper abdominal disease involving the omentum in small volume the pelvic disease was resected. The retroperitoneal nodes were enlarged in isolated areas. At the completion of the procedure the patient was rendered visibly free of residual disease. Name: [facility] [id number] Procedure: After being prepped and draped in the usual manner a midline skin incision was made of appropriate length. The electrocautery was then used to dissect thru the adipose tissue to the level of the fascia. The fascia was incised sharply and the peritoneum identified. At this time the peritoneum was elevated and incised with a Metzenbaum scissors. Upon entering the peritoneal cavity 500 cc of ascetic fluid was removed. At this time adhesions of intestine to the anterior abdominal wall were lysed with great care. We then searched the abdominal and pelvic contents and found that the left upper quadrant metastatic disease involved the greater omentum with small implants to 2-3 cm (rank 1 #). The right upper quadrant was free of metastatic disease (rank #). Exploration of the central abdomen revealed approximately absence of metastatic (rank # 0). The pelvic disease consisted of involvement of the left adnexia with the cul-de-sac involved with confluent metastatic disease and a large uterus (rank 2 #). The largest metastatic disease was 3 cm in dimension and involved the omentum with some enlarged solitary nodes. We then placed an aortic Bellfower retractor. At this time, the omentum was dissected from the transverse colon with sharp dissection and electrocautery when possible. Vessels to large to be managed by electrocautery or too close to the colon were addressed with the cutting phase of the Gyrus bipolar cutting forceps or Ligasure or sutured with 3-0 silk suture if needed. This procedure was carried out throughout the length of the omentum and transverse colon. Larger vascular pedicles were divided using the Ligasure or Gyrus bipolar cutting forceps if the pedicle was vascular but somewhat skeletonized. Oozing areas in the cautery line with either devise were either recauterized or sutured with 3-0 silk. We then entered the lesser sac bluntly and the gastro-colic ligament from the greater curvature of the stomach with electrocautery and 3-0 silk suture used as needed. The Gyrus bipolar cutting forceps forceps was used for small pedicles and Ligasure for larger pedicles as the gastrocolic ligament was from the stomach. Oozing areas in any Name: [facility] [id number] cautery lines were either cauterized or sutured with 3-0 silk depending on the proximity to adjacent gastric serosa. The specimen was removed en-bloc, after which the transverse colon was thoroughly inspected and any sero-muscular defects encountered were repaired with interrupted 3-0 Silk suture. At this time , the pelvic disease was addressed. Because of the extensive disease involving the reproductive organs as well as the pelvic peritoneum an en-bloc procedure was planned with ureteral dissection and repositioning to facilitate resection. Initially the right round ligament was transected with an a Gyrus bipolar cutting forceps. The retroperitoneal area was opened and the ureter was identified. The ureter were dissected with a right angle clamp and lateralized and then further repositioned with a peanut and digital dissection due to adherent metastatic disease on the peritoneum and adjacent mass. After repositioning the ureter laterally away from the adherent peritoneum that was densely involved with disease, the infundibulopelvic ligament was transected by cauterizing with a Gyrus bipolar cutting forceps and then clamping, transecting and suturing with 0- Vicryl suture. Attention was then addressed contralaterally in that the left round ligament was transected with a Ligasure uneventfully. The retroperitoneal area was opened and the ureter was identified. The ureter were dissected with a right angle clamp and lateralized and then further repositioned with a peanut and digitally due to adherent metastatic disease on the peritoneum and adjacent mass. After repositioning the ureter laterally away from the adherent peritoneum that was densely involved with disease, the IP ligament was transected by cauterizing with a Gyrus bipolar cutting forceps and then clamping, transecting and suturing with 0 - Vicryl suture. The bladder flap was then developed with a Bovie and any implants on the anterior bladder peritoneum were ablated with an ABC spring assembler supervisor. At this time a large right angle clamp was used to dissect the ureters bilaterally, away from the uterine vessels in a manner used during a type-2 hysterectomy. The uterine arteries were clipped and cut, along with the veins. The ureters were then tunneled through the parametria with a large right angle Name: [facility] [id number] clamp, and the parametrial pedicles were transected with an Ligasure bilaterally. The bladder pillars were then dissected and clipped, after which the ureters were confirmed to be undamaged. Hence, remaining parametrial tissue was transected with the Gyrus bipolar cutting forceps and the uterosacral ligaments were clamped with Tommie clamps. The rectum and colon were also mobilized considerably from the lower uterine segment and cervix, allowing the rectum to be from the cul-de-sac and the confluent disease to be included with the specimen, leaving the rectum deperitonealized but intact as proven by inserting and EEA sizer. The uterus was from the vagina and the vagina closed with figure of eight sutures using 0-vicryl. Additional implants were excised from the sigmoid and the muscular-serosal defects repaired with interrupted 3-0 silk suture. After confirming hemostasis we addressed the lymph node dissection since we had adequate exposure. Initially lymph node tissue adjacent to the right external iliac artery and vein , hypogastric artery and vein, as well as obturator fossa were removed with sharp and blunt dissection, using the Gyrus bipolar cutting forceps for hemostasis and lymphostasis. The dissection was continued to include jamarcus tissue adjacent to the common iliac vessels. The retractors were adjusted and jamarcus tissue adjacent to the vena cava, as well as aorto-caval nodes were removed using identical technique. At this time we adjusted the retractors and all lymph node tissue adjacent to the left external iliac artery and vein, hypogastric artery and vein, as well as obturator fossa were removed with sharp and blunt dissection, using the Gyrus bipolar cutting forceps for hemostasis and lymphostasis. The dissection was continued to include jamarcus tissue adjacent to the common iliac vessels. Subsequently, the retractors were adjusted and any jamarcus tissue adjacent to the aorta were dissected using sharp and blunt dissection with the Gyrus bipolar cutting forceps. At this time, after all packing was removed, the abdomen thoroughly irrigated, hemostasis confirmed. At this time, after all packing was removed, the abdomen thoroughly irrigated, hemostasis confirmed, a Pelvic Mayito drains was placed. A figure of [facility] [id number] was placed at the caudal apex of the incision with 1- Prolene suture suture and used for exposure by elevating with a Pean clamp. Continuous 1 Prolene suture was used from the rostral apex and run to the supra-pubic area. The final suture was tied appropriately, after which the figure of eight was tied. The subcutaneous tissue was irrigated and the skin was closed with a deep layer of 3 -0 Vicryl suture and skin clips. The sponge, needle, and instrument were correct two times. The estimated blood loss was 300ml. The patient tolerated the procedure well and left the OR in good condition. It should be noted that all visible disease was resected or ablated,. Haily Anderosn M.D. Anesthesia Type: general Estimated Blood Loss: 250 - 300 ml's Transfusion Required: no Complications: no HAILY ANDERSON MD Jun 16, 2017 22:00
[2017-06-17 02:00] VITALS: BP 134/71; RESP 18
[2017-06-17 05:31] LABS: BASOPHILS % 0.2 % (0.0-2.0); EOSINOPHILS # 0.2 10^3/ul (0.0-0.5); EOSINOPHILS % 2.1 % (0.0-7.0); HEMATOCRIT 24.8 % (37.0-47.0); HEMOGLOBIN 7.9 g/dl (12.0-16.0); LYMPHOCYTES # 1.3 10^3/ul (0.8-2.9); LYMPHOCYTES % 13.3 % (15.0-51.0); MEAN CORPUSCULAR HEMOGLOBIN 24.6 pg (29.0-33.0); MEAN CORPUSCULAR HGB CONC 31.9 g/dl (32.0-37.0); MEAN CORPUSCULAR VOLUME 77.3 fl (82.0-101.0); MEAN PLATELET VOLUME 10.7 fl (7.4-10.4); MONOCYTE # 0.4 10^3/ul (0.3-0.9); MONOCYTES % 4.4 % (0.0-11.0); NEUTROPHILS % 79.7 % (39.0-77.0); PLATELET COUNT 209 10^3/UL (140-415); RED BLOOD COUNT 3.21 10^6/ul (4.20-5.40); RED CELL DISTRIBUTION WIDTH 13.2 % (11.5-14.5); WHITE BLOOD COUNT 9.8 10^3/ul (4.8-10.8)
[2017-06-17 05:39] LABS: CREATININE 0.83 mg/dl (0.44-1.00); POTASSIUM 4.1 mmol/L (3.5-5.1)
[2017-06-17] MEDS: LEVOTHYROXINE 75 MCG TAB PO SCH (06:00)
[2017-06-17] MEDS: Insulin NOVOLOG SS MILD Algorithm (NPO/TPN/ENTERAL FEEDS) SC SCH ×5 (06:00→17:22)
[2017-06-17] MEDS: metroNIDAZOLE 500 MG/NS (PMX) 100 ML IVPB SCH ×3 (06:16→21:43)
[2017-06-17 07:48] VITALS: BP 178/75; RESP 20
[2017-06-17] MEDS: POTASSIUM CHLORIDE 20 MEQ in LACTATED RINGER'S 1,000 ML IV SCH ×3 (08:23→21:10)
[2017-06-17 09:00] VITALS: BP 148/76; PULSE 97; RESP 18
[2017-06-17] MEDS: FAMOTIDINE 20 MG INJ IV SCH ×2 (09:44→21:43)
[2017-06-17] MEDS: ACETAMINOPHEN 325 MG TAB PO PRN (09:44)
--- NOTE | 2017-06-17 14:23 | PN ---
Date/Time of Note Date/Time of Note DATE: 06/17/17 TIME: 14:21 Assessment/Plan VTE Prophylaxis VTE Prophylaxis Intervention: SCD's Lines/Catheters IV Catheter Type (from Nrsg): Central Line Central line still needed: Yes Urinary Cath still in place: Yes Reason Cath still needed: urinary retention Assessment/Plan Chief Complaint/Hosp Course stage IV endometrial cancer Problems: Assessment/Plan A- improved P- continue abx and adv diet. Begin bladder training. Subjective 24 Hr Interval Summary Free Text/Dictation + flatus, OOB more and less pain. Exam/Review of Systems Vital Signs Vitals Vital Signs Date Time Temp Pulse Resp B/P Pulse Ox O2 Delivery O2 Flow Rate FiO2 06/17/17 09:48 99.0 06/17/17 09:00 97 18 148/76 06/17/17 07:48 96 06/16/17 17:19 Room Air Intake and Output 06/16/17 06/16/17 06/17/17 15:00 23:00 07:00 Intake Total 750 ml 800 ml Output Total 1000 ml 640 ml Balance -250 ml 160 ml Exam Resp- clear CVS- NSR Abd- soft, NT clean incisions Ext- NT no edema Results Result Diagram: 06/17/17 0440 06/17/17 0440 Results 24 hrs Laboratory Tests Test 06/16/17 17:02 06/16/17 18:03 06/17/17 00:53 06/17/17 04:40 Bedside Glucose 144 141 146 White Blood Count 9.8 Red Blood Count 3.21 L Hemoglobin 7.9 L Hematocrit 24.8 L Mean Corpuscular Volume 77.3 L Mean Corpuscular Hemoglobin 24.6 L Mean Corpuscular Hemoglobin Concent 31.9 L Red Cell Distribution Width 13.2 Platelet Count 209 Mean Platelet Volume 10.7 H Neutrophils % 79.7 H Lymphocytes % 13.3 L Monocytes % 4.4 Eosinophils % 2.1 Basophils % 0.2 Nucleated Red Blood Cells % 0.0 Neutrophils # (Manual) 7.8 H Lymphocytes # 1.3 Monocytes # 0.4 Eosinophils # 0.2 Basophils # 0.0 Nucleated Red Blood Cells # 0.0 Sodium Level 140 Potassium Level 4.1 Chloride Level 102 Carbon Dioxide Level 29 Anion Gap 13 Blood Urea Nitrogen 8 Creatinine 0.83 Glucose Level 131 Calcium Level 8.0 L Test 06/17/17 06:20 06/17/17 08:03 06/17/17 12:40 Bedside Glucose 132 127 136 Medications Medications Current Medications Hydromorphone HCl (Dilaudid) 1 mg Q6H PRN IV PAIN LEVEL 6-10 Last administered on 06/16/17 16:59; Admin Dose 1 MG; Start 06/14/17 at 15:00 Diphenhydramine HCl (Benadryl) 25 mg Q6H PRN IV ITCHING; Start 06/14/17 at 15: 00 Ondansetron HCl (Zofran Inj) 4 mg Q6H PRN IV NAUSEA AND/OR VOMITING; Start at 15:00 Famotidine 20 mg 20 mg Q12 IV Last administered on 06/17/17 09:44; Admin Dose 20 MG; Start 06/14/17 at 21:00 Potassium Chloride/Lactated Ringer's (KCl/Lr) 1,010 ml @ 100 mls/hr Q10H6M IV Last administered on 06/17/17 12:45; Admin Dose 100 MLS/HR; Start 06/14/17 at 14:52 Hydralazine HCl (Apresoline) 10 mg Q4H PRN IV SBP >150; Start 06/14/17 at 17:00 Miscellaneous Information 1 ea NOTE XX ; Start 06/14/17 at 17:30 Glucose (Glutose) 15 gm Q15M PRN PO DECREASED GLUCOSE; Start 06/14/17 at 17:30 Glucose (Glutose) 22.5 gm Q15M PRN PO DECREASED GLUCOSE; Start 06/14/17 at 17: 30 Dextrose (D50w Syringe) 25 ml Q15M PRN IV DECREASED GLUCOSE; Start 06/14/17 at 17:30 Dextrose (D50w Syringe) 50 ml Q15M PRN IV DECREASED GLUCOSE; Start 06/14/17 at 17:30 Glucagon (Glucagen) 1 mg Q15M PRN IM DECREASED GLUCOSE; Start 06/14/17 at 17:30 Glucose (Glutose) 15 gm Q15M PRN BUCCAL DECREASED GLUCOSE; Start 06/14/17 at 17 :30 Insulin Aspart (Novolog Insulin Pen) (Adult SC Insulin - Mild Algorithm)... Q6 SC Last administered on 06/17/17 00:00; Admin Dose 1 UNIT; Start 06/15/17 at 06:00 Levothyroxine Sodium (Synthroid) 75 mcg DAILY@06 PO ; Start 06/17/17 at 06:00 Acetaminophen 650 mg 650 mg Q4H PRN PO PAIN AND OR ELEVATED TEMP Last administered on 06/17/17 09:44; Admin Dose 650 MG; Start 06/16/17 at 18:00 Levofloxacin/ Dextrose 150 ml @ 100 mls/hr Q24H IVPB Last administered on 06/16 18:31; Admin Dose 100 MLS/HR; Start 06/16/17 at 18:00 Metronidazole (Flagyl 500 Mg (Pmx)) 100 ml @ 100 mls/hr Q8 IVPB Last administered on 06/17/17 14:02; Admin Dose 100 MLS/HR; Start 06/16/17 at 22:00 HAILY KIMBROUGH MD Jun 17, 2017 14:23
[2017-06-17 14:46] VITALS: BP 165/93; RESP 18
[2017-06-17] MEDS: LEVOFLOXACIN 750MG/D5W (PMX) 150 ML IVPB SCH (17:27)
[2017-06-17 20:07] VITALS: BP 148/73; RESP 18
[2017-06-18 01:56] VITALS: BP 165/81; RESP 18
[2017-06-18] MEDS: POTASSIUM CHLORIDE 20 MEQ in LACTATED RINGER'S 1,000 ML IV SCH ×2 (03:10→21:29)
[2017-06-18] MEDS: LEVOTHYROXINE 75 MCG TAB PO SCH (06:30)
[2017-06-18] MEDS: metroNIDAZOLE 500 MG/NS (PMX) 100 ML IVPB SCH ×3 (06:30→21:27)
[2017-06-18] MEDS: Insulin NOVOLOG SS MILD Algorithm (NPO/TPN/ENTERAL FEEDS) SC SCH ×4 (06:30→18:08)
[2017-06-18 07:08] LABS: BASOPHILS % 0.4 % (0.0-2.0); EOSINOPHILS # 0.3 10^3/ul (0.0-0.5); EOSINOPHILS % 3.5 % (0.0-7.0); HEMATOCRIT 24.4 % (37.0-47.0); HEMOGLOBIN 7.9 g/dl (12.0-16.0); LYMPHOCYTES # 1.3 10^3/ul (0.8-2.9); LYMPHOCYTES % 15.4 % (15.0-51.0); MEAN CORPUSCULAR HEMOGLOBIN 24.7 pg (29.0-33.0); MEAN CORPUSCULAR HGB CONC 32.4 g/dl (32.0-37.0); MEAN CORPUSCULAR VOLUME 76.3 fl (82.0-101.0); MEAN PLATELET VOLUME 10.8 fl (7.4-10.4); MONOCYTE # 0.5 10^3/ul (0.3-0.9); MONOCYTES % 5.7 % (0.0-11.0); NEUTROPHILS % 74.6 % (39.0-77.0); PLATELET COUNT 263 10^3/UL (140-415); RED CELL DISTRIBUTION WIDTH 13.1 % (11.5-14.5); WHITE BLOOD COUNT 8.1 10^3/ul (4.8-10.8)
[2017-06-18 07:46] LABS: CALCIUM 8.2 mg/dl (8.4-10.2); CREATININE 0.83 mg/dl (0.44-1.00); POTASSIUM 3.6 mmol/L (3.5-5.1)
[2017-06-18 07:58] VITALS: BP 175/78; RESP 18
[2017-06-18] MEDS: FAMOTIDINE 20 MG INJ IV SCH ×2 (08:16→21:26)
[2017-06-18 14:00] VITALS: BP 185/90; RESP 18
[2017-06-18] MEDS: hydrALAzine 20 MG INJ IV PRN (15:55)
--- NOTE | 2017-06-18 16:05 | PN ---
Date/Time of Note Date/Time of Note DATE: 06/18/17 TIME: 16:03 Assessment/Plan VTE Prophylaxis VTE Prophylaxis Intervention: SCD's Lines/Catheters IV Catheter Type (from Nrs): Central Line Central line still needed: Yes Urinary Cath still in place: Yes Reason Cath still needed: urinary retention Assessment/Plan Chief Complaint/Hosp Course stage IV endometrial cancer Problems: Assessment/Plan A- doing well P- further adv diet but gradually. Subjective 24 Hr Interval Summary Free Text/Dictation + flatus and nina clear liq. OOB minimally Exam/Review of Systems Vital Signs Vitals Vital Signs Date Time Temp Pulse Resp B/P Pulse Ox O2 Delivery O2 Flow Rate FiO2 06/18/17 14:00 98.3 87 18 185/90 98 06/16/17 17:19 Room Air Intake and Output 06/17/17 06/17/17 06/18/17 15:00 23:00 07:00 Intake Total 310 ml 1340 ml 1290 ml Output Total 950 ml 1420 ml Balance 310 ml 390 ml -130 ml Exam Resp- clear CVS- NSR Abd- soft, NT clean incisions Ext- NT no edema Results Result Diagram: 06/18/17 0515 06/18/17 0515 Results 24 hrs Laboratory Tests Test 06/17/17 17:19 06/18/17 00:11 06/18/17 05:15 06/18/17 06:40 Bedside Glucose 148 136 143 White Blood Count 8.1 Red Blood Count 3.20 L Hemoglobin 7.9 L Hematocrit 24.4 L Mean Corpuscular Volume 76.3 L Mean Corpuscular Hemoglobin 24.7 L Mean Corpuscular Hemoglobin Concent 32.4 Red Cell Distribution Width 13.1 Platelet Count 263 # Mean Platelet Volume 10.8 H Neutrophils % 74.6 Lymphocytes % 15.4 Monocytes % 5.7 Eosinophils % 3.5 Basophils % 0.4 Nucleated Red Blood Cells % 0.0 Neutrophils # (Manual) 6.1 Lymphocytes # 1.3 Monocytes # 0.5 Eosinophils # 0.3 Basophils # 0.0 Nucleated Red Blood Cells # 0.0 Sodium Level 142 Potassium Level 3.6 Chloride Level 102 Carbon Dioxide Level 28 Anion Gap 16 Blood Urea Nitrogen 8 Creatinine 0.83 Glucose Level 138 Calcium Level 8.2 L Test 06/18/17 11:31 Bedside Glucose 134 Medications Medications Current Medications Hydromorphone HCl (Dilaudid) 1 mg Q6H PRN IV PAIN LEVEL 6-10 Last administered on 06/16/17 16:59; Admin Dose 1 MG; Start 06/14/17 at 15:00 Diphenhydramine HCl (Benadryl) 25 mg Q6H PRN IV ITCHING; Start 06/14/17 at 15: 00 Ondansetron HCl (Zofran Inj) 4 mg Q6H PRN IV NAUSEA AND/OR VOMITING; Start at 15:00 Famotidine 20 mg 20 mg Q12 IV Last administered on 06/18/17 08:16; Admin Dose 20 MG; Start 06/14/17 at 21:00 Potassium Chloride/Lactated Ringer's (KCl/Lr) 1,010 ml @ 60 mls/hr [id number] IV Last administered on 06/18/17 03:10; Admin Dose 60 MLS/HR; Start 06/14/17 at 14 :52 Hydralazine HCl (Apresoline) 10 mg Q4H PRN IV SBP >150 Last administered on 15:55; Admin Dose 10 MG; Start 06/14/17 at 17:00 Miscellaneous Information 1 ea NOTE XX ; Start 06/14/17 at 17:30 Glucose (Glutose) 15 gm Q15M PRN PO DECREASED GLUCOSE; Start 06/14/17 at 17:30 Glucose (Glutose) 22.5 gm Q15M PRN PO DECREASED GLUCOSE; Start 06/14/17 at 17: 30 Dextrose (D50w Syringe) 25 ml Q15M PRN IV DECREASED GLUCOSE; Start 06/14/17 at 17:30 Dextrose (D50w Syringe) 50 ml Q15M PRN IV DECREASED GLUCOSE; Start 06/14/17 at 17:30 Glucagon (Glucagen) 1 mg Q15M PRN IM DECREASED GLUCOSE; Start 06/14/17 at 17:30 Glucose (Glutose) 15 gm Q15M PRN BUCCAL DECREASED GLUCOSE; Start 06/14/17 at 17 :30 Insulin Aspart (Novolog Insulin Pen) (Adult SC Insulin - Mild Algorithm)... Q6 SC Last administered on 06/18/17 06:30; Admin Dose 1 UNIT; Start 06/15/17 at 06:00 Levothyroxine Sodium (Synthroid) 75 mcg DAILY@06 PO Last administered on 06:30; Admin Dose 75 MCG; Start 06/17/17 at 06:00 Acetaminophen 650 mg 650 mg Q4H PRN PO PAIN AND OR ELEVATED TEMP Last administered on 06/17/17 09:44; Admin Dose 650 MG; Start 06/16/17 at 18:00 Levofloxacin/ Dextrose 150 ml @ 100 mls/hr Q24H IVPB Last administered on 06/17 17:27; Admin Dose 100 MLS/HR; Start 06/16/17 at 18:00 Metronidazole (Flagyl 500 Mg (Pmx)) 100 ml @ 100 mls/hr Q8 IVPB Last administered on 06/18/17 13:55; Admin Dose 100 MLS/HR; Start 06/16/17 at 22:00 HAILY KIMBROUGH MD Jun 18, 2017 16:05
[2017-06-18 16:53] VITALS: BP 144/73; PULSE 101; RESP 18
[2017-06-18] MEDS: LEVOFLOXACIN 750MG/D5W (PMX) 150 ML IVPB SCH (18:00)
[2017-06-18 19:51] VITALS: BP 155/91; RESP 18
[2017-06-18] MEDS ORDERED: Discontinue current oral sulfonylureas (glyburide, glipizide, and/or glimepiride) prior to XX ONE (20:00)
[2017-06-18] MEDS ORDERED: HYPOGLYCEMIA PROTOCOL when Glucose is <70 mg/dL or symptomatic <90 mg/dL. XX ONE (20:00)
[2017-06-18] MEDS: INSULIN ASPART [NOVOLOG] 3 ML PEN SC SCH (21:00)
[2017-06-18 21:14] VITALS: BP 148/76; PULSE 99; RESP 18
[2017-06-18] MEDS: ACETAMINOPHEN 325 MG TAB PO PRN (21:26)
[2017-06-19] MEDS: ACCU-CHEK XX SCH (01:20)
[2017-06-19] MEDS: hydrALAzine 20 MG INJ IV PRN (01:49)
[2017-06-19 02:00] VITALS: BP 169/86; RESP 18
[2017-06-19] MEDS ORDERED: ACCU-CHEK XX SCH (02:00)
[2017-06-19 02:35] VITALS: BP 136/79; PULSE 95; RESP 18
[2017-06-19 05:36] LABS: BASOPHILS % 0.3 % (0.0-2.0); EOSINOPHILS # 0.2 10^3/ul (0.0-0.5); EOSINOPHILS % 3.4 % (0.0-7.0); HEMATOCRIT 25.6 % (37.0-47.0); HEMOGLOBIN 8.5 g/dl (12.0-16.0); LYMPHOCYTES # 1.1 10^3/ul (0.8-2.9); LYMPHOCYTES % 16.5 % (15.0-51.0); MEAN CORPUSCULAR HEMOGLOBIN 25.4 pg (29.0-33.0); MEAN CORPUSCULAR HGB CONC 33.2 g/dl (32.0-37.0); MEAN CORPUSCULAR VOLUME 76.6 fl (82.0-101.0); MONOCYTE # 0.5 10^3/ul (0.3-0.9); MONOCYTES % 6.9 % (0.0-11.0); NEUTROPHILS % 72.4 % (39.0-77.0); PLATELET COUNT 305 10^3/UL (140-415); RED BLOOD COUNT 3.34 10^6/ul (4.20-5.40); RED CELL DISTRIBUTION WIDTH 13.3 % (11.5-14.5); WHITE BLOOD COUNT 6.6 10^3/ul (4.8-10.8)
[2017-06-19] MEDS: metroNIDAZOLE 500 MG/NS (PMX) 100 ML IVPB SCH ×3 (05:48→23:10)
[2017-06-19] MEDS: LEVOTHYROXINE 75 MCG TAB PO SCH (05:48)
[2017-06-19 06:25] LABS: CALCIUM 8.2 mg/dl (8.4-10.2); CREATININE 0.79 mg/dl (0.44-1.00); POTASSIUM 3.5 mmol/L (3.5-5.1)
[2017-06-19 07:47] VITALS: BP 166/89; RESP 20
[2017-06-19] MEDS: FAMOTIDINE 20 MG INJ IV SCH (07:57)
[2017-06-19] MEDS: INSULIN ASPART [NOVOLOG] 3 ML PEN SC SCH ×4 (07:59→20:42)
[2017-06-19 08:45] VITALS: BP 145/78; PULSE 88
[2017-06-19 14:33] VITALS: BP 142/63; RESP 16
--- NOTE | 2017-06-19 14:35 | PN ---
Date/Time of Note Date/Time of Note DATE: 06/19/17 TIME: 14:32 Assessment/Plan VTE Prophylaxis VTE Prophylaxis Intervention: SCD's Lines/Catheters IV Catheter Type (from Nrsg): Central Line Central line still needed: Yes Urinary Cath still in place: Yes Reason Cath still needed: urinary retention Assessment/Plan Chief Complaint/Hosp Course Pt tolerated full liquid diet, BM last night. will resume BP meds since pt can tolerate PO, continue to monitor BP and serum glucose. Assessment/Plan 1. Stage IV endometrial cancer, status post total abdominal hysterectomy, bilateral salpingo-oophorectomy, ureteral dissection, cytoreduction and lymph node dissection. Continue to follow-up surgical recommendations. Continue Dilaudid as needed for pain. 2. Hypertension. Continue Atenolol and Cozaar. 3. Diabetes mellitus. Continue NovoLog per mild algorithm sliding scale. 4. Dyslipidemia. 5. Hypothyroidism. Continue continue levothyroxine. Further recommendations based on clinical course. Plan of care discussed with Dr. Dunlap. Problems: Exam/Review of Systems Vital Signs Vitals Vital Signs Date Time Temp Pulse Resp B/P Pulse Ox O2 Delivery O2 Flow Rate FiO2 06/19/17 08:45 88 145/78 06/19/17 07:47 97.9 20 99 06/16/17 17:19 Room Air Intake and Output 06/18/17 06/18/17 06/19/17 15:00 23:00 07:00 Intake Total 2920 ml 1190 ml Output Total 1700 ml 3400 ml Balance 1220 ml -2210 ml Exam Constitutional: alert, oriented Neck: supple Respiratory: normal air movement Cardiovascular: nl pulses Gastrointestinal: non-tender, soft Genitourinary - Female: other (s/p surgery) Extremities: normal pulses Neurological: nl mental status Results Result Diagram: 06/19/17 0454 06/19/17 0454 Results 24 hrs Laboratory Tests Test 06/18/17 17:19 06/18/17 21:24 06/19/17 04:54 06/19/17 07:55 Bedside Glucose 147 124 158 White Blood Count 6.6 Red Blood Count 3.34 L Hemoglobin 8.5 L Hematocrit 25.6 L Mean Corpuscular Volume 76.6 L Mean Corpuscular Hemoglobin 25.4 L Mean Corpuscular Hemoglobin Concent 33.2 Red Cell Distribution Width 13.3 Platelet Count 305 Mean Platelet Volume 10.0 Neutrophils % 72.4 Lymphocytes % 16.5 Monocytes % 6.9 Eosinophils % 3.4 Basophils % 0.3 Nucleated Red Blood Cells % 0.0 Neutrophils # (Manual) 4.8 Lymphocytes # 1.1 Monocytes # 0.5 Eosinophils # 0.2 Basophils # 0.0 Nucleated Red Blood Cells # 0.0 Sodium Level 143 Potassium Level 3.5 Chloride Level 103 Carbon Dioxide Level 28 Anion Gap 16 Blood Urea Nitrogen 5 L Creatinine 0.79 Glucose Level 143 Calcium Level 8.2 L Test 06/19/17 12:07 Bedside Glucose 158 Medications Medications Current Medications Hydromorphone HCl (Dilaudid) 1 mg Q6H PRN IV PAIN LEVEL 6-10 Last administered on 06/16/17 16:59; Admin Dose 1 MG; Start 06/14/17 at 15:00 Diphenhydramine HCl (Benadryl) 25 mg Q6H PRN IV ITCHING; Start 06/14/17 at 15: 00 Ondansetron HCl (Zofran Inj) 4 mg Q6H PRN IV NAUSEA AND/OR VOMITING; Start at 15:00 Famotidine 20 mg 20 mg Q12 IV Last administered on 06/19/17 07:57; Admin Dose 20 MG; Start 06/14/17 at 21:00 Potassium Chloride/Lactated Ringer's (KCl/Lr) 1,010 ml @ 60 mls/hr [id number] IV Last administered on 06/18/17 21:29; Admin Dose 60 MLS/HR; Start 06/14/17 at 14 :52 Hydralazine HCl (Apresoline) 10 mg Q4H PRN IV SBP >150 Last administered on 01:49; Admin Dose 10 MG; Start 06/14/17 at 17:00 Miscellaneous Information 1 ea NOTE XX ; Start 06/14/17 at 17:30 Glucose (Glutose) 15 gm Q15M PRN PO DECREASED GLUCOSE; Start 06/14/17 at 17:30 Glucose (Glutose) 22.5 gm Q15M PRN PO DECREASED GLUCOSE; Start 06/14/17 at 17: 30 Dextrose (D50w Syringe) 25 ml Q15M PRN IV DECREASED GLUCOSE; Start 06/14/17 at 17:30 Dextrose (D50w Syringe) 50 ml Q15M PRN IV DECREASED GLUCOSE; Start 06/14/17 at 17:30 Glucagon (Glucagen) 1 mg Q15M PRN IM DECREASED GLUCOSE; Start 06/14/17 at 17:30 Glucose (Glutose) 15 gm Q15M PRN BUCCAL DECREASED GLUCOSE; Start 06/14/17 at 17 :30 Levothyroxine Sodium (Synthroid) 75 mcg DAILY@06 PO Last administered on 05:48; Admin Dose 75 MCG; Start 06/17/17 at 06:00 Acetaminophen 650 mg 650 mg Q4H PRN PO PAIN AND OR ELEVATED TEMP Last administered on 06/18/17 21:26; Admin Dose 650 MG; Start 06/16/17 at 18:00 Levofloxacin/ Dextrose 150 ml @ 100 mls/hr Q24H IVPB Last administered on 06/18 18:00; Admin Dose 100 MLS/HR; Start 06/16/17 at 18:00 Metronidazole (Flagyl 500 Mg (Pmx)) 100 ml @ 100 mls/hr Q8 IVPB Last administered on 06/19/17 05:48; Admin Dose 100 MLS/HR; Start 06/16/17 at 22:00 Diagnostic Test (Pha) (Accu-Chek) 1 ea 02 XX Last administered on 06/19/17 01: 20; Admin Dose 1 EA; Start 06/19/17 at 02:00 Atenolol (Tenormin) 50 mg QHS PO ; Start 06/19/17 at 21:00 Atorvastatin Calcium (Lipitor) 40 mg QHS PO ; Start 06/19/17 at 21:00 Losartan Potassium (Cozaar) 100 mg DAILY PO ; Start 06/19/17 at 14:00 LANI ORELLANA Jun 19, 2017 14:35
[2017-06-19] MEDS: LOSARTAN 50 MG TAB PO SCH (14:40)
[2017-06-19] MEDS: LEVOFLOXACIN 750MG/D5W (PMX) 150 ML IVPB SCH (17:17)
[2017-06-19] MEDS: POTASSIUM CHLORIDE 20 MEQ in LACTATED RINGER'S 1,000 ML IV SCH (19:50)
[2017-06-19 20:40] VITALS: BP 147/70; RESP 18
[2017-06-19] MEDS: ATORVASTATIN 40 MG TAB PO SCH (20:59)
[2017-06-19] MEDS: FAMOTIDINE 20 MG TAB PO SCH (20:59)
[2017-06-19] MEDS ORDERED: ATENOLOL 50 MG TAB PO SCH (21:00)
--- NOTE | 2017-06-19 21:19 | PN ---
Date/Time of Note Date/Time of Note DATE: 06/19/17 TIME: 21:17 Assessment/Plan VTE Prophylaxis VTE Prophylaxis Intervention: SCD's Lines/Catheters IV Catheter Type (from Nrs): Central Line Central line still needed: Yes Urinary Cath still in place: Yes Reason Cath still needed: urinary retention Assessment/Plan Chief Complaint/Hosp Course stage IV endometrial cancer Problems: Assessment/Plan A- improved P- continue bladder training and adv diet Subjective 24 Hr Interval Summary Free Text/Dictation + flatus but still minimally OOB. Exam/Review of Systems Vital Signs Vitals Vital Signs Date Time Temp Pulse Resp B/P Pulse Ox O2 Delivery O2 Flow Rate FiO2 06/19/17 20:40 98.4 92 18 147/70 98 06/16/17 17:19 Room Air Intake and Output 06/18/17 06/18/17 06/19/17 15:00 23:00 07:00 Intake Total 2920 ml 1190 ml Output Total 1700 ml 3400 ml Balance 1220 ml -2210 ml Exam Resp- clear CVS- NSR Abd- soft, NT clean incisions Ext- NT no edema Results Result Diagram: 06/19/17 0454 06/19/17 0454 Results 24 hrs Laboratory Tests Test 06/18/17 21:24 06/19/17 04:54 06/19/17 07:55 06/19/17 12:07 Bedside Glucose 124 158 158 White Blood Count 6.6 Red Blood Count 3.34 L Hemoglobin 8.5 L Hematocrit 25.6 L Mean Corpuscular Volume 76.6 L Mean Corpuscular Hemoglobin 25.4 L Mean Corpuscular Hemoglobin Concent 33.2 Red Cell Distribution Width 13.3 Platelet Count 305 Mean Platelet Volume 10.0 Neutrophils % 72.4 Lymphocytes % 16.5 Monocytes % 6.9 Eosinophils % 3.4 Basophils % 0.3 Nucleated Red Blood Cells % 0.0 Neutrophils # (Manual) 4.8 Lymphocytes # 1.1 Monocytes # 0.5 Eosinophils # 0.2 Basophils # 0.0 Nucleated Red Blood Cells # 0.0 Sodium Level 143 Potassium Level 3.5 Chloride Level 103 Carbon Dioxide Level 28 Anion Gap 16 Blood Urea Nitrogen 5 L Creatinine 0.79 Glucose Level 143 Calcium Level 8.2 L Test 06/19/17 17:16 06/19/17 20:41 Bedside Glucose 124 130 Medications Medications Current Medications Hydromorphone HCl (Dilaudid) 1 mg Q6H PRN IV PAIN LEVEL 6-10 Last administered on 06/16/17 16:59; Admin Dose 1 MG; Start 06/14/17 at 15:00 Diphenhydramine HCl (Benadryl) 25 mg Q6H PRN IV ITCHING; Start 06/14/17 at 15: 00 Ondansetron HCl 4 mg 4 mg Q6H PRN IV NAUSEA AND/OR VOMITING; Start 06/14/17 at 15:00 Potassium Chloride/Lactated Ringer's (KCl/Lr) 1,010 ml @ 60 mls/hr [id number] IV Last administered on 06/19/17 19:50; Admin Dose 60 MLS/HR; Start 06/14/17 at 14 :52 Hydralazine HCl (Apresoline) 10 mg Q4H PRN IV SBP >150 Last administered on 01:49; Admin Dose 10 MG; Start 06/14/17 at 17:00 Miscellaneous Information 1 ea NOTE XX ; Start 06/14/17 at 17:30 Glucose (Glutose) 15 gm Q15M PRN PO DECREASED GLUCOSE; Start 06/14/17 at 17:30 Glucose (Glutose) 22.5 gm Q15M PRN PO DECREASED GLUCOSE; Start 06/14/17 at 17: 30 Dextrose (D50w Syringe) 25 ml Q15M PRN IV DECREASED GLUCOSE; Start 06/14/17 at 17:30 Dextrose (D50w Syringe) 50 ml Q15M PRN IV DECREASED GLUCOSE; Start 06/14/17 at 17:30 Glucagon (Glucagen) 1 mg Q15M PRN IM DECREASED GLUCOSE; Start 06/14/17 at 17:30 Glucose (Glutose) 15 gm Q15M PRN BUCCAL DECREASED GLUCOSE; Start 06/14/17 at 17 :30 Levothyroxine Sodium (Synthroid) 75 mcg DAILY@06 PO Last administered on 05:48; Admin Dose 75 MCG; Start 06/17/17 at 06:00 Acetaminophen 650 mg 650 mg Q4H PRN PO PAIN AND OR ELEVATED TEMP Last administered on 06/18/17 21:26; Admin Dose 650 MG; Start 06/16/17 at 18:00 Levofloxacin/ Dextrose 150 ml @ 100 mls/hr Q24H IVPB Last administered on 06/19 17:17; Admin Dose 100 MLS/HR; Start 06/16/17 at 18:00 Metronidazole (Flagyl 500 Mg (Pmx)) 100 ml @ 100 mls/hr Q8 IVPB Last administered on 06/19/17 14:40; Admin Dose 100 MLS/HR; Start 06/16/17 at 22:00 Diagnostic Test (Pha) (Accu-Chek) 1 ea 02 XX Last administered on 06/19/17 01: 20; Admin Dose 1 EA; Start 06/19/17 at 02:00 Atenolol (Tenormin) 50 mg QHS PO Last administered on 06/19/17 20:59; Admin Dose 50 MG; Start 06/19/17 at 21:00 Atorvastatin Calcium (Lipitor) 40 mg QHS PO Last administered on 06/19/17 20: 59; Admin Dose 40 MG; Start 06/19/17 at 21:00 Losartan Potassium (Cozaar) 100 mg DAILY PO Last administered on 06/19/17 14: 40; Admin Dose 100 MG; Start 06/19/17 at 14:00 Triamterene/HCTZ (Maxzide-25) 1 tab DAILY PO ; Start 06/20/17 at 09:00 Miscellaneous Information 1 each DAILY PO ; Start 06/20/17 at 09:00; Status UNV Famotidine (Pepcid) 20 mg Q12 PO Last administered on 06/19/17 20:59; Admin Dose 20 MG; Start 06/19/17 at 21:00 HAILY KIMBROUGH MD Jun 19, 2017 21:19
[2017-06-20] MEDS: ACCU-CHEK XX SCH (02:00)
[2017-06-20 03:26] VITALS: BP 145/73; RESP 20
[2017-06-20] MEDS: LEVOTHYROXINE 75 MCG TAB PO SCH (05:10)
[2017-06-20] MEDS: metroNIDAZOLE 500 MG/NS (PMX) 100 ML IVPB SCH ×3 (05:11→21:01)
[2017-06-20 07:43] VITALS: BP 176/79; RESP 19
[2017-06-20 07:43] LABS: BASOPHILS % 0.1 % (0.0-2.0); EOSINOPHILS # 0.4 10^3/ul (0.0-0.5); EOSINOPHILS % 5.1 % (0.0-7.0); HEMATOCRIT 26.7 % (37.0-47.0); HEMOGLOBIN 8.5 g/dl (12.0-16.0); LYMPHOCYTES # 1.3 10^3/ul (0.8-2.9); LYMPHOCYTES % 18.7 % (15.0-51.0); MEAN CORPUSCULAR HEMOGLOBIN 24.4 pg (29.0-33.0); MEAN CORPUSCULAR HGB CONC 31.8 g/dl (32.0-37.0); MEAN CORPUSCULAR VOLUME 76.7 fl (82.0-101.0); MEAN PLATELET VOLUME 9.9 fl (7.4-10.4); MONOCYTE # 0.4 10^3/ul (0.3-0.9); MONOCYTES % 6.1 % (0.0-11.0); NEUTROPHILS % 69.4 % (39.0-77.0); PLATELET COUNT 340 10^3/UL (140-415); RED BLOOD COUNT 3.48 10^6/ul (4.20-5.40); RED CELL DISTRIBUTION WIDTH 13.7 % (11.5-14.5); WHITE BLOOD COUNT 6.9 10^3/ul (4.8-10.8)
[2017-06-20 08:15] LABS: CALCIUM 8.7 mg/dl (8.4-10.2); CREATININE 0.79 mg/dl (0.44-1.00); POTASSIUM 3.8 mmol/L (3.5-5.1)
[2017-06-20] MEDS: INSULIN ASPART [NOVOLOG] 3 ML PEN SC SCH ×4 (08:22→20:19)
[2017-06-20] MEDS: LOSARTAN 50 MG TAB PO SCH (09:09)
[2017-06-20] MEDS: FAMOTIDINE 20 MG TAB PO SCH ×2 (09:09→20:55)
[2017-06-20] MEDS: TRIAMTERENE/HCTZ (37.5/25) TAB PO SCH (09:09)
[2017-06-20 13:19] VITALS: BP 151/74; RESP 19
--- NOTE | 2017-06-20 15:22 | PN ---
Date/Time of Note Date/Time of Note DATE: 06/20/17 TIME: 15:21 Assessment/Plan VTE Prophylaxis VTE Prophylaxis Intervention: SCD's Lines/Catheters IV Catheter Type (from Nrs): [place] Lock Urinary Cath still in place: Yes Reason Cath still needed: urinary retention Assessment/Plan Chief Complaint/Hosp Course Patient is currently undergoing bladder training, tolerates full liquid diet well, denies any nausea vomiting, pain is well controlled. Assessment/Plan 1. Stage IV endometrial cancer, status post total abdominal hysterectomy, bilateral salpingo-oophorectomy, ureteral dissection, cytoreduction and lymph node dissection. Continue to follow-up surgical recommendations. Continue Dilaudid as needed for pain. 2. Hypertension. Continue Atenolol and Cozaar. 3. Diabetes mellitus. Continue NovoLog per mild algorithm sliding scale. 4. Dyslipidemia. 5. Hypothyroidism. Continue levothyroxine. Further recommendations based on clinical course. Plan of care discussed with Dr. Dunlap. Problems: Exam/Review of Systems Vital Signs Vitals Vital Signs Date Time Temp Pulse Resp B/P Pulse Ox O2 Delivery O2 Flow Rate FiO2 06/20/17 13:19 98.4 81 19 151/74 99 06/16/17 17:19 Room Air Intake and Output 06/19/17 06/19/17 06/20/17 15:00 23:00 07:00 Intake Total 2510 ml 1100 ml Output Total 3300 ml 1900 ml Balance -790 ml -800 ml Exam Constitutional: alert, oriented Neck: supple Respiratory: normal air movement Cardiovascular: nl pulses Gastrointestinal: non-tender, soft Genitourinary - Female: other (s/p surgery) Extremities: normal pulses Neurological: nl mental status Results Result Diagram: 06/20/1718 06/20/17 0718 Results 24 hrs Laboratory Tests Test 06/19/17 17:16 06/19/17 20:41 06/20/17 07:18 06/20/17 08:16 Bedside Glucose 124 130 144 White Blood Count 6.9 Red Blood Count 3.48 L Hemoglobin 8.5 L Hematocrit 26.7 L Mean Corpuscular Volume 76.7 L Mean Corpuscular Hemoglobin 24.4 L Mean Corpuscular Hemoglobin Concent 31.8 L Red Cell Distribution Width 13.7 Platelet Count 340 Mean Platelet Volume 9.9 Neutrophils % 69.4 Lymphocytes % 18.7 Monocytes % 6.1 Eosinophils % 5.1 Basophils % 0.1 Nucleated Red Blood Cells % 0.0 Neutrophils # (Manual) 4.8 Lymphocytes # 1.3 Monocytes # 0.4 Eosinophils # 0.4 Basophils # 0.0 Nucleated Red Blood Cells # 0.0 Sodium Level 142 Potassium Level 3.8 Chloride Level 102 Carbon Dioxide Level 28 Anion Gap 16 Blood Urea Nitrogen 6 L Creatinine 0.79 Glucose Level 142 Calcium Level 8.7 Test 06/20/17 12:00 Bedside Glucose 134 Medications Medications Current Medications Hydromorphone HCl (Dilaudid) 1 mg Q6H PRN IV PAIN LEVEL 6-10 Last administered on 06/16/17 16:59; Admin Dose 1 MG; Start 06/14/17 at 15:00 Diphenhydramine HCl (Benadryl) 25 mg Q6H PRN IV ITCHING; Start 06/14/17 at 15: 00 Ondansetron HCl 4 mg 4 mg Q6H PRN IV NAUSEA AND/OR VOMITING; Start 06/14/17 at 15:00 Potassium Chloride/Lactated Ringer's (KCl/Lr) 1,010 ml @ 60 mls/hr [id number] IV Last administered on 06/19/17 19:50; Admin Dose 60 MLS/HR; Start 06/14/17 at 14 :52 Hydralazine HCl (Apresoline) 10 mg Q4H PRN IV SBP >150 Last administered on 01:49; Admin Dose 10 MG; Start 06/14/17 at 17:00 Miscellaneous Information 1 ea NOTE XX ; Start 06/14/17 at 17:30 Glucose (Glutose) 15 gm Q15M PRN PO DECREASED GLUCOSE; Start 06/14/17 at 17:30 Glucose (Glutose) 22.5 gm Q15M PRN PO DECREASED GLUCOSE; Start 06/14/17 at 17: 30 Dextrose (D50w Syringe) 25 ml Q15M PRN IV DECREASED GLUCOSE; Start 06/14/17 at 17:30 Dextrose (D50w Syringe) 50 ml Q15M PRN IV DECREASED GLUCOSE; Start 06/14/17 at 17:30 Glucagon (Glucagen) 1 mg Q15M PRN IM DECREASED GLUCOSE; Start 06/14/17 at 17:30 Glucose (Glutose) 15 gm Q15M PRN BUCCAL DECREASED GLUCOSE; Start 06/14/17 at 17 :30 Levothyroxine Sodium (Synthroid) 75 mcg DAILY@06 PO Last administered on 05:10; Admin Dose 75 MCG; Start 06/17/17 at 06:00 Acetaminophen 650 mg 650 mg Q4H PRN PO PAIN AND OR ELEVATED TEMP Last administered on 06/18/17 21:26; Admin Dose 650 MG; Start 06/16/17 at 18:00 Levofloxacin/ Dextrose 150 ml @ 100 mls/hr Q24H IVPB Last administered on 06/19 17:17; Admin Dose 100 MLS/HR; Start 06/16/17 at 18:00 Metronidazole (Flagyl 500 Mg (Pmx)) 100 ml @ 100 mls/hr Q8 IVPB Last administered on 06/20/17 14:34; Admin Dose 100 MLS/HR; Start 06/16/17 at 22:00 Diagnostic Test (Pha) (Accu-Chek) 1 ea 02 XX Last administered on 06/19/17 01: 20; Admin Dose 1 EA; Start 06/19/17 at 02:00 Atenolol (Tenormin) 50 mg QHS PO Last administered on 06/19/17 20:59; Admin Dose 50 MG; Start 06/19/17 at 21:00 Atorvastatin Calcium (Lipitor) 40 mg QHS PO Last administered on 06/19/17 20: 59; Admin Dose 40 MG; Start 06/19/17 at 21:00 Losartan Potassium (Cozaar) 100 mg DAILY PO Last administered on 06/20/17 09: 09; Admin Dose 100 MG; Start 06/19/17 at 14:00 Triamterene/HCTZ (Maxzide-25) 1 tab DAILY PO Last administered on 06/20/17 09: 09; Admin Dose 1 TAB; Start 06/20/17 at 09:00 Linagliptin (Tradjenta) 5 mg DAILY PO ; Start 06/20/17 at 15:00 Famotidine (Pepcid) 20 mg Q12 PO Last administered on 06/20/17 09:09; Admin Dose 20 MG; Start 06/19/17 at 21:00 LANI ORELLANA Jun 20, 2017 15:22
[2017-06-20] MEDS: POTASSIUM CHLORIDE 20 MEQ in LACTATED RINGER'S 1,000 ML IV SCH (17:08)
[2017-06-20] MEDS: LEVOFLOXACIN 750MG/D5W (PMX) 150 ML IVPB SCH (17:08)
[2017-06-20] MEDS: metFORMIN 500 MG TAB PO SCH (17:22)
[2017-06-20] MEDS: LINAGLIPTIN 5 MG TABLET PO SCH (17:22)
[2017-06-20 19:52] VITALS: BP 145/71; RESP 20
[2017-06-20] MEDS: ATORVASTATIN 40 MG TAB PO SCH (20:55)
[2017-06-20] MEDS: ATENOLOL 50 MG TAB PO SCH (20:56)
--- NOTE | 2017-06-20 21:04 | PN ---
Date/Time of Note Date/Time of Note DATE: 06/20/17 TIME: 21:02 Assessment/Plan VTE Prophylaxis VTE Prophylaxis Intervention: SCD's Lines/Catheters IV Catheter Type (from Nrs): Peripheral IV Central line still needed: Yes Urinary Cath still in place: Yes Reason Cath still needed: urinary retention Assessment/Plan Chief Complaint/Hosp Course stage IV endometrial cancer Problems: Assessment/Plan A- improved P- adv diet and possibly chemo 2-3 d Subjective 24 Hr Interval Summary Free Text/Dictation + BM and feels better. Exam/Review of Systems Vital Signs Vitals Vital Signs Date Time Temp Pulse Resp B/P Pulse Ox O2 Delivery O2 Flow Rate FiO2 06/20/17 19:52 98.0 83 20 145/71 100 06/16/17 17:19 Room Air Intake and Output 06/19/17 06/19/17 06/20/17 15:00 23:00 07:00 Intake Total 2510 ml 1100 ml Output Total 3300 ml 1900 ml Balance -790 ml -800 ml Exam Resp- clear CVS- NSR Abd- NT with clean wound, Ext - NT' no edema Results Result Diagram: 06/20/17 0718 06/20/17 0718 Results 24 hrs Laboratory Tests Test 06/20/17 07:18 06/20/17 08:16 06/20/17 12:00 06/20/17 17:19 White Blood Count 6.9 Red Blood Count 3.48 L Hemoglobin 8.5 L Hematocrit 26.7 L Mean Corpuscular Volume 76.7 L Mean Corpuscular Hemoglobin 24.4 L Mean Corpuscular Hemoglobin Concent 31.8 L Red Cell Distribution Width 13.7 Platelet Count 340 Mean Platelet Volume 9.9 Neutrophils % 69.4 Lymphocytes % 18.7 Monocytes % 6.1 Eosinophils % 5.1 Basophils % 0.1 Nucleated Red Blood Cells % 0.0 Neutrophils # (Manual) 4.8 Lymphocytes # 1.3 Monocytes # 0.4 Eosinophils # 0.4 Basophils # 0.0 Nucleated Red Blood Cells # 0.0 Sodium Level 142 Potassium Level 3.8 Chloride Level 102 Carbon Dioxide Level 28 Anion Gap 16 Blood Urea Nitrogen 6 L Creatinine 0.79 Glucose Level 142 Calcium Level 8.7 Bedside Glucose 144 134 132 Test 06/20/17 20:19 Bedside Glucose 112 Medications Medications Current Medications Hydromorphone HCl (Dilaudid) 1 mg Q6H PRN IV PAIN LEVEL 6-10 Last administered on 06/16/17 16:59; Admin Dose 1 MG; Start 06/14/17 at 15:00 Diphenhydramine HCl (Benadryl) 25 mg Q6H PRN IV ITCHING; Start 06/14/17 at 15: 00 Ondansetron HCl 4 mg 4 mg Q6H PRN IV NAUSEA AND/OR VOMITING; Start 06/14/17 at 15:00 Potassium Chloride/Lactated Ringer's (KCl/Lr) 1,010 ml @ 60 mls/hr [id number] IV Last administered on 06/20/17 17:08; Admin Dose 60 MLS/HR; Start 06/14/17 at 14 :52 Hydralazine HCl (Apresoline) 10 mg Q4H PRN IV SBP >150 Last administered on 01:49; Admin Dose 10 MG; Start 06/14/17 at 17:00 Miscellaneous Information 1 ea NOTE XX ; Start 06/14/17 at 17:30 Glucose (Glutose) 15 gm Q15M PRN PO DECREASED GLUCOSE; Start 06/14/17 at 17:30 Glucose (Glutose) 22.5 gm Q15M PRN PO DECREASED GLUCOSE; Start 06/14/17 at 17: 30 Dextrose (D50w Syringe) 25 ml Q15M PRN IV DECREASED GLUCOSE; Start 06/14/17 at 17:30 Dextrose (D50w Syringe) 50 ml Q15M PRN IV DECREASED GLUCOSE; Start 06/14/17 at 17:30 Glucagon (Glucagen) 1 mg Q15M PRN IM DECREASED GLUCOSE; Start 06/14/17 at 17:30 Glucose (Glutose) 15 gm Q15M PRN BUCCAL DECREASED GLUCOSE; Start 06/14/17 at 17 :30 Levothyroxine Sodium (Synthroid) 75 mcg DAILY@06 PO Last administered on 05:10; Admin Dose 75 MCG; Start 06/17/17 at 06:00 Acetaminophen 650 mg 650 mg Q4H PRN PO PAIN AND OR ELEVATED TEMP Last administered on 06/18/17 21:26; Admin Dose 650 MG; Start 06/16/17 at 18:00 Levofloxacin/ Dextrose 150 ml @ 100 mls/hr Q24H IVPB Last administered on 06/20 17:08; Admin Dose 100 MLS/HR; Start 06/16/17 at 18:00 Metronidazole (Flagyl 500 Mg (Pmx)) 100 ml @ 100 mls/hr Q8 IVPB Last administered on 06/20/17 21:01; Admin Dose 100 MLS/HR; Start 06/16/17 at 22:00 Diagnostic Test (Pha) (Accu-Chek) 1 ea 02 XX Last administered on 06/19/17 01: 20; Admin Dose 1 EA; Start 06/19/17 at 02:00 Atorvastatin Calcium (Lipitor) 40 mg QHS PO Last administered on 06/20/17 20: 55; Admin Dose 40 MG; Start 06/19/17 at 21:00 Losartan Potassium (Cozaar) 100 mg DAILY PO Last administered on 06/20/17 09: 09; Admin Dose 100 MG; Start 06/19/17 at 14:00 Triamterene/HCTZ (Maxzide-25) 1 tab DAILY PO Last administered on 06/20/17 09: 09; Admin Dose 1 TAB; Start 06/20/17 at 09:00 Linagliptin (Tradjenta) 5 mg DAILY PO Last administered on 06/20/17 17:22; Admin Dose 5 MG; Start 06/20/17 at 15:00 Famotidine (Pepcid) 20 mg Q12 PO Last administered on 06/20/17 20:55; Admin Dose 20 MG; Start 06/19/17 at 21:00 Atenolol (Tenormin) 100 mg QHS PO Last administered on 06/20/17 20:56; Admin Dose 100 MG; Start 06/20/17 at 21:00 HAILY KIMBROUGH MD Jun 20, 2017 21:04
[2017-06-20] MEDS ORDERED: traMADol 50 MG TAB PO PRN (21:30)
[2017-06-21] MEDS: ACCU-CHEK XX SCH (01:33)
[2017-06-21 01:54] VITALS: BP 168/80; RESP 20
[2017-06-21] MEDS: hydrALAzine 20 MG INJ IV PRN (02:05)
[2017-06-21] MEDS ORDERED: HYDROmorphONE 1 MG/ML SYG IV PRN (03:00)
[2017-06-21 03:26] VITALS: BP 123/63
[2017-06-21] MEDS: LEVOTHYROXINE 75 MCG TAB PO SCH (06:03)
[2017-06-21] MEDS: metroNIDAZOLE 500 MG/NS (PMX) 100 ML IVPB SCH ×3 (06:03→21:06)
[2017-06-21 06:36] LABS: BASOPHILS % 0.3 % (0.0-2.0); EOSINOPHILS # 0.4 10^3/ul (0.0-0.5); EOSINOPHILS % 3.9 % (0.0-7.0); HEMATOCRIT 27.6 % (37.0-47.0); HEMOGLOBIN 9.1 g/dl (12.0-16.0); LYMPHOCYTES # 1.4 10^3/ul (0.8-2.9); LYMPHOCYTES % 15.5 % (15.0-51.0); MEAN CORPUSCULAR HEMOGLOBIN 25.3 pg (29.0-33.0); MEAN CORPUSCULAR VOLUME 76.9 fl (82.0-101.0); MONOCYTE # 0.4 10^3/ul (0.3-0.9); MONOCYTES % 4.5 % (0.0-11.0); NUCLEATED RED BLOOD CELLS% 0.2 /100WBC (0.0-0.0); PLATELET COUNT 343 10^3/UL (140-415); RED BLOOD COUNT 3.59 10^6/ul (4.20-5.40); RED CELL DISTRIBUTION WIDTH 13.4 % (11.5-14.5); WHITE BLOOD COUNT 9.2 10^3/ul (4.8-10.8)
[2017-06-21 07:06] LABS: ALBUMIN 2.8 g/dl (3.3-4.9); ALBUMIN/GLOBULIN RATIO 0.87; CALCIUM 8.9 mg/dl (8.4-10.2); CREATININE 0.88 mg/dl (0.44-1.00); POTASSIUM 3.8 mmol/L (3.5-5.1)
[2017-06-21 07:55] VITALS: BP 139/82; RESP 18
[2017-06-21] MEDS: INSULIN ASPART [NOVOLOG] 3 ML PEN SC SCH ×4 (08:21→21:00)
[2017-06-21] MEDS: FAMOTIDINE 20 MG TAB PO SCH ×2 (08:42→21:06)
[2017-06-21] MEDS: TRIAMTERENE/HCTZ (37.5/25) TAB PO SCH (08:43)
[2017-06-21] MEDS: metFORMIN 500 MG TAB PO SCH ×2 (08:43→17:32)
[2017-06-21] MEDS: LOSARTAN 50 MG TAB PO SCH (08:43)
[2017-06-21] MEDS: LINAGLIPTIN 5 MG TABLET PO SCH (08:43)
[2017-06-21] MEDS: POTASSIUM CHLORIDE 20 MEQ in LACTATED RINGER'S 1,000 ML IV SCH ×2 (09:20→17:27)
--- NOTE | 2017-06-21 14:13 | PN ---
Date/Time of Note Date/Time of Note DATE: 06/21/17 TIME: 14:10 Assessment/Plan VTE Prophylaxis VTE Prophylaxis Intervention: SCD's Lines/Catheters IV Catheter Type (from Nrsg): Peripheral IV Urinary Cath still in place: Yes Reason Cath still needed: urinary retention Assessment/Plan Chief Complaint/Hosp Course Diet progressed to mechanical soft patient tolerates it well without any nausea vomiting, good urine output Via Cruz catheter. Assessment/Plan 1. Stage IV endometrial cancer, status post total abdominal hysterectomy, bilateral salpingo-oophorectomy, ureteral dissection, cytoreduction and lymph node dissection. Continue to follow-up surgical recommendations. Continue Ultram and Dilaudid as needed for pain. 2. Hypertension. Continue Atenolol and Cozaar. 3. Diabetes mellitus. Continue Janumet and NovoLog per mild algorithm sliding scale. 4. Dyslipidemia. 5. Hypothyroidism. Continue levothyroxine. Further recommendations based on clinical course. Plan of care discussed with Dr. Dunlap. Problems: Exam/Review of Systems Vital Signs Vitals Vital Signs Date Time Temp Pulse Resp B/P Pulse Ox O2 Delivery O2 Flow Rate FiO2 06/21/17 07:55 97.9 80 18 139/82 99 Intake and Output 06/20/17 06/20/17 06/21/17 15:00 23:00 07:00 Intake Total 1840 ml 2400 ml Output Total 1900 ml 3150 ml Balance -60 ml -750 ml Exam Constitutional: alert, oriented Neck: supple Respiratory: normal air movement Cardiovascular: nl pulses Gastrointestinal: non-tender, soft Genitourinary - Female: other (s/p surgery) Extremities: normal pulses Neurological: nl mental status Results Result Diagram: 06/21/17 0556 06/21/17 0556 Results 24 hrs Laboratory Tests Test 06/20/17 17:19 06/20/17 20:19 06/21/17 05:56 06/21/17 07:50 Bedside Glucose 132 112 142 White Blood Count 9.2 # Red Blood Count 3.59 L Hemoglobin 9.1 L Hematocrit 27.6 L Mean Corpuscular Volume 76.9 L Mean Corpuscular Hemoglobin 25.3 L Mean Corpuscular Hemoglobin Concent 33.0 Red Cell Distribution Width 13.4 Platelet Count 343 Mean Platelet Volume 10.0 Neutrophils % 75.0 Lymphocytes % 15.5 Monocytes % 4.5 Eosinophils % 3.9 Basophils % 0.3 Nucleated Red Blood Cells % 0.2 H Neutrophils # (Manual) 6.9 Lymphocytes # 1.4 Monocytes # 0.4 Eosinophils # 0.4 Basophils # 0.0 Nucleated Red Blood Cells # 0.0 Sodium Level 138 Potassium Level 3.8 Chloride Level 98 Carbon Dioxide Level 29 Anion Gap 15 Blood Urea Nitrogen 9 Creatinine 0.88 Glucose Level 185 Calcium Level 8.9 Total Bilirubin 0.0 L Direct Bilirubin 0.00 Indirect Bilirubin 0.0 Aspartate Amino Transf (AST/SGOT) 17 Alanine Aminotransferase (ALT/SGPT) 27 Alkaline Phosphatase 41 L Total Protein 6.0 L Albumin 2.8 L Globulin 3.20 Albumin/Globulin Ratio 0.87 Test 06/21/17 12:18 Bedside Glucose 125 Medications Medications Current Medications Diphenhydramine HCl (Benadryl) 25 mg Q6H PRN IV ITCHING; Start 06/14/17 at 15: 00 Ondansetron HCl 4 mg 4 mg Q6H PRN IV NAUSEA AND/OR VOMITING; Start 06/14/17 at 15:00 Potassium Chloride/Lactated Ringer's (KCl/Lr) 1,010 ml @ 60 mls/hr [id number] IV Last administered on 06/20/17 17:08; Admin Dose 60 MLS/HR; Start 06/14/17 at 14 :52 Hydralazine HCl (Apresoline) 10 mg Q4H PRN IV SBP >150 Last administered on 02:05; Admin Dose 10 MG; Start 06/14/17 at 17:00 Miscellaneous Information 1 ea NOTE XX ; Start 06/14/17 at 17:30 Glucose (Glutose) 15 gm Q15M PRN PO DECREASED GLUCOSE; Start 06/14/17 at 17:30 Glucose (Glutose) 22.5 gm Q15M PRN PO DECREASED GLUCOSE; Start 06/14/17 at 17: 30 Dextrose (D50w Syringe) 25 ml Q15M PRN IV DECREASED GLUCOSE; Start 06/14/17 at 17:30 Dextrose (D50w Syringe) 50 ml Q15M PRN IV DECREASED GLUCOSE; Start 06/14/17 at 17:30 Glucagon (Glucagen) 1 mg Q15M PRN IM DECREASED GLUCOSE; Start 06/14/17 at 17:30 Glucose (Glutose) 15 gm Q15M PRN BUCCAL DECREASED GLUCOSE; Start 06/14/17 at 17 :30 Levothyroxine Sodium (Synthroid) 75 mcg DAILY@06 PO Last administered on 06:03; Admin Dose 75 MCG; Start 06/17/17 at 06:00 Acetaminophen 650 mg 650 mg Q4H PRN PO PAIN AND OR ELEVATED TEMP Last administered on 06/18/17 21:26; Admin Dose 650 MG; Start 06/16/17 at 18:00 Levofloxacin/ Dextrose 150 ml @ 100 mls/hr Q24H IVPB Last administered on 06/20 17:08; Admin Dose 100 MLS/HR; Start 06/16/17 at 18:00 Metronidazole (Flagyl 500 Mg (Pmx)) 100 ml @ 100 mls/hr Q8 IVPB Last administered on 06/21/17 13:51; Admin Dose 100 MLS/HR; Start 06/16/17 at 22:00 Diagnostic Test (Pha) (Accu-Chek) 1 ea 02 XX Last administered on 06/19/17 01: 20; Admin Dose 1 EA; Start 06/19/17 at 02:00 Atorvastatin Calcium (Lipitor) 40 mg QHS PO Last administered on 06/20/17 20: 55; Admin Dose 40 MG; Start 06/19/17 at 21:00 Losartan Potassium (Cozaar) 100 mg DAILY PO Last administered on 06/21/17 08: 43; Admin Dose 100 MG; Start 06/19/17 at 14:00 Triamterene/HCTZ (Maxzide-25) 1 tab DAILY PO Last administered on 06/21/17 08: 43; Admin Dose 1 TAB; Start 06/20/17 at 09:00 Linagliptin (Tradjenta) 5 mg DAILY PO Last administered on 06/21/17 08:43; Admin Dose 5 MG; Start 06/20/17 at 15:00 Famotidine (Pepcid) 20 mg Q12 PO Last administered on 06/21/17 08:42; Admin Dose 20 MG; Start 06/19/17 at 21:00 Atenolol (Tenormin) 100 mg QHS PO Last administered on 06/20/17 20:56; Admin Dose 100 MG; Start 06/20/17 at 21:00 Hydromorphone HCl (Dilaudid) 0.5 mg Q6H PRN IV PAIN LEVEL 6-10; Start 06/21/17 at 03:00 Tramadol HCl (Ultram) 50 mg Q6H PRN PO PAIN LEVEL 1-5; Start 06/20/17 at 21:30 LANI ORELLANA Jun 21, 2017 14:13
[2017-06-21 14:21] VITALS: BP 154/84; RESP 18
[2017-06-21] MEDS: LEVOFLOXACIN 750MG/D5W (PMX) 150 ML IVPB SCH (17:32)
[2017-06-21 20:08] VITALS: BP 135/67; RESP 18
[2017-06-21] MEDS: ATORVASTATIN 40 MG TAB PO SCH (21:06)
[2017-06-21] MEDS: ATENOLOL 50 MG TAB PO SCH (21:07)
--- NOTE | 2017-06-21 22:41 | PN ---
Date/Time of Note Date/Time of Note DATE: 06/21/17 TIME: 22:39 Assessment/Plan VTE Prophylaxis VTE Prophylaxis Intervention: SCD's Lines/Catheters IV Catheter Type (from Nrs): Peripheral IV Urinary Cath still in place: Yes Reason Cath still needed: urinary retention Assessment/Plan Chief Complaint/Hosp Course stage IV endometrial cancer Problems: Assessment/Plan A- improving P- discussed with Dr Taylor and discussed the need for Carbo/Taxol with patient. Will adv diet and d/c Cruz 1-2 d and chemo 2-3 d or immediately after d/c. Subjective 24 Hr Interval Summary Free Text/Dictation + BM and nina diet with some OOB. Exam/Review of Systems Vital Signs Vitals Vital Signs Date Time Temp Pulse Resp B/P Pulse Ox O2 Delivery O2 Flow Rate FiO2 06/21/17 20:08 98.3 82 18 135/67 99 Intake and Output 06/20/17 06/20/17 06/21/17 15:00 23:00 07:00 Intake Total 1840 ml 2400 ml Output Total 1900 ml 3150 ml Balance -60 ml -750 ml Exam Resp- clear CVS- NSR Abd- NT with clean wound. Ext - NT' no edema Results Result Diagram: 06/21/17 0556 06/21/17 0556 Results 24 hrs Laboratory Tests Test 06/21/17 05:56 06/21/17 07:50 06/21/17 12:18 06/21/17 17:25 White Blood Count 9.2 # Red Blood Count 3.59 L Hemoglobin 9.1 L Hematocrit 27.6 L Mean Corpuscular Volume 76.9 L Mean Corpuscular Hemoglobin 25.3 L Mean Corpuscular Hemoglobin Concent 33.0 Red Cell Distribution Width 13.4 Platelet Count 343 Mean Platelet Volume 10.0 Neutrophils % 75.0 Lymphocytes % 15.5 Monocytes % 4.5 Eosinophils % 3.9 Basophils % 0.3 Nucleated Red Blood Cells % 0.2 H Neutrophils # (Manual) 6.9 Lymphocytes # 1.4 Monocytes # 0.4 Eosinophils # 0.4 Basophils # 0.0 Nucleated Red Blood Cells # 0.0 Sodium Level 138 Potassium Level 3.8 Chloride Level 98 Carbon Dioxide Level 29 Anion Gap 15 Blood Urea Nitrogen 9 Creatinine 0.88 Glucose Level 185 Calcium Level 8.9 Total Bilirubin 0.0 L Direct Bilirubin 0.00 Indirect Bilirubin 0.0 Aspartate Amino Transf (AST/SGOT) 17 Alanine Aminotransferase (ALT/SGPT) 27 Alkaline Phosphatase 41 L Total Protein 6.0 L Albumin 2.8 L Globulin 3.20 Albumin/Globulin Ratio 0.87 Bedside Glucose 142 125 111 Test 06/21/17 21:05 Bedside Glucose 112 Medications Medications Current Medications Diphenhydramine HCl (Benadryl) 25 mg Q6H PRN IV ITCHING; Start 06/14/17 at 15: 00 Ondansetron HCl 4 mg 4 mg Q6H PRN IV NAUSEA AND/OR VOMITING; Start 06/14/17 at 15:00 Potassium Chloride/Lactated Ringer's (KCl/Lr) 1,010 ml @ 60 mls/hr [id number] IV Last administered on 06/21/17 17:27; Admin Dose 60 MLS/HR; Start 06/14/17 at 14 :52 Hydralazine HCl (Apresoline) 10 mg Q4H PRN IV SBP >150 Last administered on 02:05; Admin Dose 10 MG; Start 06/14/17 at 17:00 Miscellaneous Information 1 ea NOTE XX ; Start 06/14/17 at 17:30 Glucose (Glutose) 15 gm Q15M PRN PO DECREASED GLUCOSE; Start 06/14/17 at 17:30 Glucose (Glutose) 22.5 gm Q15M PRN PO DECREASED GLUCOSE; Start 06/14/17 at 17: 30 Dextrose (D50w Syringe) 25 ml Q15M PRN IV DECREASED GLUCOSE; Start 06/14/17 at 17:30 Dextrose (D50w Syringe) 50 ml Q15M PRN IV DECREASED GLUCOSE; Start 06/14/17 at 17:30 Glucagon (Glucagen) 1 mg Q15M PRN IM DECREASED GLUCOSE; Start 06/14/17 at 17:30 Glucose (Glutose) 15 gm Q15M PRN BUCCAL DECREASED GLUCOSE; Start 06/14/17 at 17 :30 Levothyroxine Sodium (Synthroid) 75 mcg DAILY@06 PO Last administered on 06:03; Admin Dose 75 MCG; Start 06/17/17 at 06:00 Acetaminophen 650 mg 650 mg Q4H PRN PO PAIN AND OR ELEVATED TEMP Last administered on 06/18/17 21:26; Admin Dose 650 MG; Start 06/16/17 at 18:00 Levofloxacin/ Dextrose 150 ml @ 100 mls/hr Q24H IVPB Last administered on 06/21 17:32; Admin Dose 100 MLS/HR; Start 06/16/17 at 18:00 Metronidazole (Flagyl 500 Mg (Pmx)) 100 ml @ 100 mls/hr Q8 IVPB Last administered on 06/21/17 21:06; Admin Dose 100 MLS/HR; Start 06/16/17 at 22:00 Diagnostic Test (Pha) (Accu-Chek) 1 ea 02 XX Last administered on 06/19/17 01: 20; Admin Dose 1 EA; Start 06/19/17 at 02:00 Atorvastatin Calcium (Lipitor) 40 mg QHS PO Last administered on 06/21/17 21: 06; Admin Dose 40 MG; Start 06/19/17 at 21:00 Losartan Potassium (Cozaar) 100 mg DAILY PO Last administered on 06/21/17 08: 43; Admin Dose 100 MG; Start 06/19/17 at 14:00 Triamterene/HCTZ (Maxzide-25) 1 tab DAILY PO Last administered on 06/21/17 08: 43; Admin Dose 1 TAB; Start 06/20/17 at 09:00 Linagliptin (Tradjenta) 5 mg DAILY PO Last administered on 06/21/17 08:43; Admin Dose 5 MG; Start 06/20/17 at 15:00 Famotidine (Pepcid) 20 mg Q12 PO Last administered on 06/21/17 21:06; Admin Dose 20 MG; Start 06/19/17 at 21:00 Atenolol (Tenormin) 100 mg QHS PO Last administered on 06/21/17 21:07; Admin Dose 100 MG; Start 06/20/17 at 21:00 Hydromorphone HCl (Dilaudid) 0.5 mg Q6H PRN IV PAIN LEVEL 6-10; Start 06/21/17 at 03:00 Tramadol HCl (Ultram) 50 mg Q6H PRN PO PAIN LEVEL 1-5; Start 06/20/17 at 21:30 HAILY KIMBROUGH MD Jun 21, 2017 22:41
--- NOTE | 2017-06-21 23:04 | CONS ---
Date/Time of Note Date/Time of Note DATE: 06/21/17 TIME: 22:34 Assessment/Plan Assessment/Plan Chief Complaint/Hosp Course 52 yo female with #Stage IV endometrial Cancer with questionable involvement in a 9mm solitary lung nodule -will plan to start carboplatin AUC 6/ Taxol 175 mg/m2, q 3 week dose -pt will need premedication with oral Decadron 20mg 12 hours and 6 hours prior -anti-emetic premeds will be ordered including Zofran, Decadron -check pre chemo CA 125 #iron deficiency anemia -2/2 blood loss from malignancy -will perform anemia workup including iron studies -will start Ferrlecit 125 mg IV x 5 days #post op pain -being managed by [facility]. -pt is currently on Dilaudid 0.5 mg IV q 2 hours prn pain #DM -continue to keep careful control of blood sugars while patient is healing form surgery -cont Metform -cont Janumet and NovoLog per mild algorithm sliding scale. #HTN -continue Cozaar and Atenolol Problems: (1) Diabetes Status: Chronic Qualifiers: (2) Anemia, iron deficiency Status: Chronic Qualifiers: Qualified Code: D50.0 - Iron deficiency anemia due to chronic blood loss (3) Endometrial cancer, FIGO stage SIXTO Status: Chronic (4) Hypertension Consultation Date/Type/Reason Admit Date/Time Jun 14, 2017 at 07:38 Date of Consultation: Jun 21, 2017 Type of Consultation: Oncology Reason for Consultation STAGE IV Endometrial Cancer Referring Provider: HAILY KIMBROUGH MD Hx of Present Illness Ms Combs is a 52 yo female who presented to Dr Amaral as an out patient with abnormal uterine bleeding since November 2016. Pt went on to have a endometrial biopsy that revealed grade [address] revealed a solitary 9mm nodule in the RLL lesion. Patient has since undergone a hysterectomy, bilateral salpingo oophorectomy, omentectomy and cytoreduction. The patient was also noted to have ureteral stricture. The patient underwent ureteral dissection bilaterally and also pelvic and aortic lymph node dissection. Surgical pathology reveals 7.o cm mass in the anterior and posterior endometrium, FIGO grad 2, Endometrioid adenocarcinoma. Noted was involvement of an omental nodule, right and left ovaries. Lymph Nodes were negative for disease. We have been consulted to initiate chemotherapy on this patient. Pt is currently tolerating a soft diet without nausea and vomiting. Constitutional: requiring IVF, requiring O2 Respiratory: cough, no complaints Cardiovascular: no complaints Gastrointestinal: pain Genitourinary: no complaints Musculoskeletal: no complaints Past Medical History HTN DM Hypothyroidism Hyperlipemia Past Surgical History Past Surgical Hx: no surgical history Family History Significant Family History: other (father passed on Head and Neck Cancer) Social History Alcohol Use: none Smoking Status: Never smoker Drug Use: none Exam/Review of Systems Vital Signs Vitals Vital Signs Date Time Temp Pulse Resp B/P Pulse Ox O2 Delivery O2 Flow Rate FiO2 06/21/17 20:08 98.3 82 18 135/67 99 Intake and Output 06/20/17 06/20/17 06/21/17 14:59 22:59 06:59 Intake Total 1840 ml 2400 ml Output Total 1900 ml 3150 ml Balance -60 ml -750 ml Exam Constitutional: alert, oriented Psych: no complaints Head: normocephalic Eyes: nl conjunctiva ENMT: nl external ears & nose Neck: non-tender, supple Respiratory: clear to auscultation, normal air movement Cardiovascular: regular rate and rhythm Gastrointestinal: surgical scars, tender Extremities: normal pulses Results Result Diagram: 06/21/17 0556 06/21/17 0556 Results 24 hrs Laboratory Tests Test 06/21/17 05:56 06/21/17 07:50 06/21/17 12:18 06/21/17 17:25 White Blood Count 9.2 # Red Blood Count 3.59 L Hemoglobin 9.1 L Hematocrit 27.6 L Mean Corpuscular Volume 76.9 L Mean Corpuscular Hemoglobin 25.3 L Mean Corpuscular Hemoglobin Concent 33.0 Red Cell Distribution Width 13.4 Platelet Count 343 Mean Platelet Volume 10.0 Neutrophils % 75.0 Lymphocytes % 15.5 Monocytes % 4.5 Eosinophils % 3.9 Basophils % 0.3 Nucleated Red Blood Cells % 0.2 H Neutrophils # (Manual) 6.9 Lymphocytes # 1.4 Monocytes # 0.4 Eosinophils # 0.4 Basophils # 0.0 Nucleated Red Blood Cells # 0.0 Sodium Level 138 Potassium Level 3.8 Chloride Level 98 Carbon Dioxide Level 29 Anion Gap 15 Blood Urea Nitrogen 9 Creatinine 0.88 Glucose Level 185 Calcium Level 8.9 Total Bilirubin 0.0 L Direct Bilirubin 0.00 Indirect Bilirubin 0.0 Aspartate Amino Transf (AST/SGOT) 17 Alanine Aminotransferase (ALT/SGPT) 27 Alkaline Phosphatase 41 L Total Protein 6.0 L Albumin 2.8 L Globulin 3.20 Albumin/Globulin Ratio 0.87 Bedside Glucose 142 125 111 Test 06/21/17 21:05 Bedside Glucose 112 Medications Medications Current Medications Diphenhydramine HCl (Benadryl) 25 mg Q6H PRN IV ITCHING; Start 06/14/17 at 15: 00 Ondansetron HCl 4 mg 4 mg Q6H PRN IV NAUSEA AND/OR VOMITING; Start 06/14/17 at 15:00 Potassium Chloride/Lactated Ringer's (KCl/Lr) 1,010 ml @ 60 mls/hr [id number] IV Last administered on 06/21/17 17:27; Admin Dose 60 MLS/HR; Start 06/14/17 at 14 :52 Hydralazine HCl (Apresoline) 10 mg Q4H PRN IV SBP >150 Last administered on 02:05; Admin Dose 10 MG; Start 06/14/17 at 17:00 Miscellaneous Information 1 ea NOTE XX ; Start 06/14/17 at 17:30 Glucose (Glutose) 15 gm Q15M PRN PO DECREASED GLUCOSE; Start 06/14/17 at 17:30 Glucose (Glutose) 22.5 gm Q15M PRN PO DECREASED GLUCOSE; Start 06/14/17 at 17: 30 Dextrose (D50w Syringe) 25 ml Q15M PRN IV DECREASED GLUCOSE; Start 06/14/17 at 17:30 Dextrose (D50w Syringe) 50 ml Q15M PRN IV DECREASED GLUCOSE; Start 06/14/17 at 17:30 Glucagon (Glucagen) 1 mg Q15M PRN IM DECREASED GLUCOSE; Start 06/14/17 at 17:30 Glucose (Glutose) 15 gm Q15M PRN BUCCAL DECREASED GLUCOSE; Start 06/14/17 at 17 :30 Levothyroxine Sodium (Synthroid) 75 mcg DAILY@06 PO Last administered on 06:03; Admin Dose 75 MCG; Start 06/17/17 at 06:00 Acetaminophen 650 mg 650 mg Q4H PRN PO PAIN AND OR ELEVATED TEMP Last administered on 06/18/17 21:26; Admin Dose 650 MG; Start 06/16/17 at 18:00 Levofloxacin/ Dextrose 150 ml @ 100 mls/hr Q24H IVPB Last administered on 06/21 17:32; Admin Dose 100 MLS/HR; Start 06/16/17 at 18:00 Metronidazole (Flagyl 500 Mg (Pmx)) 100 ml @ 100 mls/hr Q8 IVPB Last administered on 06/21/17 21:06; Admin Dose 100 MLS/HR; Start 06/16/17 at 22:00 Diagnostic Test (Pha) (Accu-Chek) 1 ea 02 XX Last administered on 06/19/17 01: 20; Admin Dose 1 EA; Start 06/19/17 at 02:00 Atorvastatin Calcium (Lipitor) 40 mg QHS PO Last administered on 06/21/17 21: 06; Admin Dose 40 MG; Start 06/19/17 at 21:00 Losartan Potassium (Cozaar) 100 mg DAILY PO Last administered on 06/21/17 08: 43; Admin Dose 100 MG; Start 06/19/17 at 14:00 Triamterene/HCTZ (Maxzide-25) 1 tab DAILY PO Last administered on 06/21/17 08: 43; Admin Dose 1 TAB; Start 06/20/17 at 09:00 Linagliptin (Tradjenta) 5 mg DAILY PO Last administered on 06/21/17 08:43; Admin Dose 5 MG; Start 06/20/17 at 15:00 Famotidine (Pepcid) 20 mg Q12 PO Last administered on 06/21/17 21:06; Admin Dose 20 MG; Start 06/19/17 at 21:00 Atenolol (Tenormin) 100 mg QHS PO Last administered on 06/21/17 21:07; Admin Dose 100 MG; Start 06/20/17 at 21:00 Hydromorphone HCl (Dilaudid) 0.5 mg Q6H PRN IV PAIN LEVEL 6-10; Start 06/21/17 at 03:00 Tramadol HCl (Ultram) 50 mg Q6H PRN PO PAIN LEVEL 1-5; Start 06/20/17 at 21:30 TROY ANDREW M.D. Jun 21, 2017 22:44
[2017-06-22] MEDS: SOD FERRIC GLUC COMPLX 125 MG in SOD CHLORIDE 0.9% 100 ML IVPB SCH ×2 (00:53→23:04)
[2017-06-22] MEDS: ACCU-CHEK XX SCH (01:51)
[2017-06-22 02:00] VITALS: BP 130/67; RESP 18
[2017-06-22] MEDS: LEVOTHYROXINE 75 MCG TAB PO SCH (06:14)
[2017-06-22] MEDS: metroNIDAZOLE 500 MG/NS (PMX) 100 ML IVPB SCH ×3 (06:14→21:13)
[2017-06-22 06:30] LABS: BASOPHILS % 0.3 % (0.0-2.0); EOSINOPHILS # 0.3 10^3/ul (0.0-0.5); EOSINOPHILS % 4.1 % (0.0-7.0); HEMATOCRIT 25.5 % (37.0-47.0); HEMOGLOBIN 8.2 g/dl (12.0-16.0); LYMPHOCYTES # 1.3 10^3/ul (0.8-2.9); LYMPHOCYTES % 17.8 % (15.0-51.0); MEAN CORPUSCULAR HEMOGLOBIN 24.2 pg (29.0-33.0); MEAN CORPUSCULAR HGB CONC 32.2 g/dl (32.0-37.0); MEAN CORPUSCULAR VOLUME 75.2 fl (82.0-101.0); MEAN PLATELET VOLUME 10.2 fl (7.4-10.4); MONOCYTE # 0.4 10^3/ul (0.3-0.9); MONOCYTES % 5.3 % (0.0-11.0); NEUTROPHILS % 71.7 % (39.0-77.0); PLATELET COUNT 326 10^3/UL (140-415); RED BLOOD COUNT 3.39 10^6/ul (4.20-5.40); RED CELL DISTRIBUTION WIDTH 13.4 % (11.5-14.5); WHITE BLOOD COUNT 7.3 10^3/ul (4.8-10.8)
[2017-06-22 07:13] LABS: CALCIUM 8.7 mg/dl (8.4-10.2); CREATININE 0.87 mg/dl (0.44-1.00); POTASSIUM 4.1 mmol/L (3.5-5.1)
[2017-06-22 07:46] VITALS: BP 169/85; RESP 16
[2017-06-22] MEDS: INSULIN ASPART [NOVOLOG] 3 ML PEN SC SCH ×4 (08:15→20:35)
[2017-06-22] MEDS: LOSARTAN 50 MG TAB PO SCH (08:24)
[2017-06-22] MEDS: metFORMIN 500 MG TAB PO SCH ×2 (08:25→17:04)
[2017-06-22] MEDS: TRIAMTERENE/HCTZ (37.5/25) TAB PO SCH (08:25)
[2017-06-22] MEDS: FAMOTIDINE 20 MG TAB PO SCH ×2 (08:25→20:35)
[2017-06-22] MEDS: LINAGLIPTIN 5 MG TABLET PO SCH (08:25)
[2017-06-22 14:00] VITALS: BP 135/72; RESP 16
[2017-06-22] MEDS: POTASSIUM CHLORIDE 20 MEQ in LACTATED RINGER'S 1,000 ML IV SCH (16:38)
[2017-06-22] MEDS: LEVOFLOXACIN 750MG/D5W (PMX) 150 ML IVPB SCH (17:04)
[2017-06-22 20:00] VITALS: BP 130/67; RESP 20
[2017-06-22] MEDS: ATORVASTATIN 40 MG TAB PO SCH (20:34)
[2017-06-22] MEDS: ATENOLOL 50 MG TAB PO SCH (20:34)
[2017-06-23 02:00] VITALS: BP 116/61; RESP 20
[2017-06-23] MEDS: ACCU-CHEK XX SCH (02:00)
[2017-06-23] MEDS: metroNIDAZOLE 500 MG/NS (PMX) 100 ML IVPB SCH ×3 (05:27→22:42)
[2017-06-23] MEDS: LEVOTHYROXINE 75 MCG TAB PO SCH (05:27)
[2017-06-23] MEDS: INSULIN ASPART [NOVOLOG] 3 ML PEN SC SCH ×4 (07:49→20:28)
[2017-06-23] MEDS: metFORMIN 500 MG TAB PO SCH ×2 (08:04→17:57)
[2017-06-23] MEDS: LINAGLIPTIN 5 MG TABLET PO SCH (08:04)
[2017-06-23] MEDS: FAMOTIDINE 20 MG TAB PO SCH ×2 (08:04→20:24)
[2017-06-23] MEDS: LOSARTAN 50 MG TAB PO SCH (08:05)
[2017-06-23 08:06] VITALS: BP 124/65; PULSE 69
[2017-06-23 08:15] VITALS: BP 138/70; RESP 16
[2017-06-23] MEDS ORDERED: LIDOCAINE 1% (MPF) 5 ML VIAL SC ONE (09:00)
--- NOTE | 2017-06-23 09:45 | CONS ---
Date/Time of Note Date/Time of Note DATE: 06/23/17 TIME: 09:43 Assessment/Plan Assessment/Plan Chief Complaint/Hosp Course 52 yo female with #Stage IV endometrial Cancer with questionable involvement in a 9mm solitary lung nodule -will plan to start carboplatin AUC 6/ Taxol 175 mg/m2, q 3 week dose. orders written. pt needs chemo nurse and to be transferred to [address] [place] [address] -[facility] line ordered -pt will need premedication with oral Decadron 20mg 12 hours and 6 hours prior -anti-emetic premeds will be ordered including Zofran, Decadron -check pre chemo CA 125 #iron deficiency anemia -2/2 blood loss from malignancy -will perform anemia workup including iron studies -will start Ferrlecit 125 mg IV x 5 days #post op pain -being managed by [facility] On[facility]. -pt is currently on Dilaudid 0.5 mg IV q 2 hours prn pain #DM -continue to keep careful control of blood sugars while patient is healing form surgery -cont Metform -cont Janumet and NovoLog per mild algorithm sliding scale. #HTN -continue Cozaar and Atenolol Problems: (1) Diabetes Status: Chronic Qualifiers: (2) Anemia, iron deficiency Status: Chronic Qualifiers: Qualified Code: D50.0 - Iron deficiency anemia due to chronic blood loss (3) Endometrial cancer, FIGO stage SIXTO Status: Chronic (4) Hypertension Problems: Consultation Date/Type/Reason Admit Date/Time Jun 14, 2017 at 07:38 Initial Consult Date 06/21/17 Type of Consultation: Oncology Reason for Consultation ovarian cancer Referring Provider: HAILY KIMBROUGH MD 24 HR Interval Summary Free Text/Dictation no acute overnight events. pt is ambulating Exam/Review of Systems Vital Signs Vitals Vital Signs Date Time Temp Pulse Resp B/P Pulse Ox O2 Delivery O2 Flow Rate FiO2 06/23/17 08:15 97.4 72 16 138/70 97 Intake and Output 06/22/17 06/22/17 06/23/17 14:59 22:59 06:59 Intake Total 100 ml 6090 ml 1412 ml Output Total 4400 ml 2100 ml Balance 100 ml 1690 ml -688 ml Exam Constitutional: alert, oriented Psych: nl mood/affect, no complaints Head: normocephalic Eyes: nl conjunctiva ENMT: nl external ears & nose Neck: non-tender, supple Respiratory: clear to auscultation, normal air movement Cardiovascular: regular rate and rhythm Gastrointestinal: soft Musculoskeletal: nl extremities to inspection, nl gait and stance Extremities: normal pulses Results Result Diagram: 06/22/1752106/22/17521 Results 24 hrs Laboratory Tests Test 06/22/17 12:02 06/22/17 16:54 06/22/17 20:31 06/23/17 07:48 Bedside Glucose 97 200 106 128 Medications Medications Current Medications Diphenhydramine HCl (Benadryl) 25 mg Q6H PRN IV ITCHING; Start 06/14/17 at 15: 00 Ondansetron HCl 4 mg 4 mg Q6H PRN IV NAUSEA AND/OR VOMITING; Start 06/14/17 at 15:00 Potassium Chloride/Lactated Ringer's (KCl/Lr) 1,010 ml @ 60 mls/hr [id number] IV Last administered on 06/22/17 16:38; Admin Dose 60 MLS/HR; Start 06/14/17 at 14 :52 Hydralazine HCl (Apresoline) 10 mg Q4H PRN IV SBP >150 Last administered on 02:05; Admin Dose 10 MG; Start 06/14/17 at 17:00 Miscellaneous Information 1 ea NOTE XX ; Start 06/14/17 at 17:30 Glucose (Glutose) 15 gm Q15M PRN PO DECREASED GLUCOSE; Start 06/14/17 at 17:30 Glucose (Glutose) 22.5 gm Q15M PRN PO DECREASED GLUCOSE; Start 06/14/17 at 17: 30 Dextrose (D50w Syringe) 25 ml Q15M PRN IV DECREASED GLUCOSE; Start 06/14/17 at 17:30 Dextrose (D50w Syringe) 50 ml Q15M PRN IV DECREASED GLUCOSE; Start 06/14/17 at 17:30 Glucagon (Glucagen) 1 mg Q15M PRN IM DECREASED GLUCOSE; Start 06/14/17 at 17:30 Glucose (Glutose) 15 gm Q15M PRN BUCCAL DECREASED GLUCOSE; Start 06/14/17 at 17 :30 Levothyroxine Sodium (Synthroid) 75 mcg DAILY@06 PO Last administered on 05:27; Admin Dose 75 MCG; Start 06/17/17 at 06:00 Acetaminophen 650 mg 650 mg Q4H PRN PO PAIN AND OR ELEVATED TEMP Last administered on 06/18/17 21:26; Admin Dose 650 MG; Start 06/16/17 at 18:00 Levofloxacin/ Dextrose 150 ml @ 100 mls/hr Q24H IVPB Last administered on 06/22 17:04; Admin Dose 100 MLS/HR; Start 06/16/17 at 18:00 Metronidazole (Flagyl 500 Mg (Pmx)) 100 ml @ 100 mls/hr Q8 IVPB Last administered on 06/23/17 05:27; Admin Dose 100 MLS/HR; Start 06/16/17 at 22:00 Diagnostic Test (Pha) (Accu-Chek) 1 ea 02 XX Last administered on 06/19/17 01: 20; Admin Dose 1 EA; Start 06/19/17 at 02:00 Atorvastatin Calcium (Lipitor) 40 mg QHS PO Last administered on 06/22/17 20: 34; Admin Dose 40 MG; Start 06/19/17 at 21:00 Losartan Potassium (Cozaar) 100 mg DAILY PO Last administered on 06/23/17 08:05 ; Admin Dose 100 MG; Start 06/19/17 at 14:00 Triamterene/HCTZ (Maxzide-25) 1 tab DAILY PO Last administered on 06/22/17 08: 25; Admin Dose 1 TAB; Start 06/20/17 at 09:00 Linagliptin (Tradjenta) 5 mg DAILY PO Last administered on 06/23/17 08:04; Admin Dose 5 MG; Start 06/20/17 at 15:00 Famotidine (Pepcid) 20 mg Q12 PO Last administered on 06/23/17 08:04; Admin Dose 20 MG; Start 06/19/17 at 21:00 Atenolol (Tenormin) 100 mg QHS PO Last administered on 06/22/17 20:34; Admin Dose 100 MG; Start 06/20/17 at 21:00 Tramadol HCl 50 mg 50 mg Q6H PRN PO PAIN LEVEL 1-5; Start 06/20/17 at 21:30 Ferric Sodium Gluconate Complex/ Sodium Chloride (Ferrlecit/NS) 110 ml @ 110 mls/hr Q24H IVPB Last administered on 06/22/17t 23:04; Admin Dose 110 MLS/HR; Start 06/21/17 at 23:30; Stop 06/26/17 at 00:29 TROY ANDREW M.D. Jun 23, 2017 09:45
[2017-06-23 10:18] VITALS: BP 129/72; PULSE 77
[2017-06-23] MEDS: TRIAMTERENE/HCTZ (37.5/25) TAB PO SCH (10:18)
[2017-06-23] MEDS: POTASSIUM CHLORIDE 20 MEQ in LACTATED RINGER'S 1,000 ML IV SCH ×2 (11:50→16:41)
--- NOTE | 2017-06-23 13:55 | PN ---
Date/Time of Note Date/Time of Note DATE: 06/23/17 TIME: 13:55 Assessment/Plan Lines/Catheters IV Catheter Type (from Nrs): Central Line Urinary Cath still in place: No Assessment/Plan Assessment/Plan 1. Stage IV endometrial cancer, status post total abdominal hysterectomy, bilateral salpingo-oophorectomy, ureteral dissection, cytoreduction and lymph node dissection. Continue to follow-up surgical recommendations. Continue Ultram and Dilaudid as needed for pain. 2. Hypertension. Continue Atenolol and Cozaar. 3. Diabetes mellitus. Continue Janumet and NovoLog per mild algorithm sliding scale. 4. Dyslipidemia. 5. Hypothyroidism. Continue levothyroxine. Further recommendations based on clinical course. Plan of care discussed with Dr. Dunlap. Subjective 24 Hr Interval Summary Free Text/Dictation Late entry- 06/22/2017 Exam/Review of Systems Vital Signs Vitals Vital Signs Date Time Temp Pulse Resp B/P Pulse Ox O2 Delivery O2 Flow Rate FiO2 06/23/17 10:18 77 129/72 06/23/17 08:15 97.4 16 97 Intake and Output 06/22/17 06/22/17 06/23/17 15:00 23:00 07:00 Intake Total 100 ml 6090 ml 1412 ml Output Total 4400 ml 2100 ml Balance 100 ml 1690 ml -688 ml Results Result Diagram: 06/22/17 0522 06/22/1722 Results 24 hrs Laboratory Tests Test 06/22/17 16:54 06/22/17 20:31 06/23/17 07:48 06/23/17 11:49 Bedside Glucose 200 106 128 106 Medications Medications Current Medications Diphenhydramine HCl (Benadryl) 25 mg Q6H PRN IV ITCHING; Start 06/14/17 at 15: 00 Ondansetron HCl 4 mg 4 mg Q6H PRN IV NAUSEA AND/OR VOMITING; Start 06/14/17 at 15:00 Potassium Chloride/Lactated Ringer's (KCl/Lr) 1,010 ml @ 60 mls/hr [id number] IV Last administered on 06/22/17t 16:38; Admin Dose 60 MLS/HR; Start 06/14/17 at 14 :52 Hydralazine HCl (Apresoline) 10 mg Q4H PRN IV SBP >150 Last administered on 02:05; Admin Dose 10 MG; Start 06/14/17 at 17:00 Miscellaneous Information 1 ea NOTE XX ; Start 06/14/17 at 17:30 Glucose (Glutose) 15 gm Q15M PRN PO DECREASED GLUCOSE; Start 06/14/17 at 17:30 Glucose (Glutose) 22.5 gm Q15M PRN PO DECREASED GLUCOSE; Start 06/14/17 at 17: 30 Dextrose (D50w Syringe) 25 ml Q15M PRN IV DECREASED GLUCOSE; Start 06/14/17 at 17:30 Dextrose (D50w Syringe) 50 ml Q15M PRN IV DECREASED GLUCOSE; Start 06/14/17 at 17:30 Glucagon (Glucagen) 1 mg Q15M PRN IM DECREASED GLUCOSE; Start 06/14/17 at 17:30 Glucose (Glutose) 15 gm Q15M PRN BUCCAL DECREASED GLUCOSE; Start 06/14/17 at 17 :30 Levothyroxine Sodium (Synthroid) 75 mcg DAILY@06 PO Last administered on 05:27; Admin Dose 75 MCG; Start 06/17/17 at 06:00 Acetaminophen 650 mg 650 mg Q4H PRN PO PAIN AND OR ELEVATED TEMP Last administered on 06/18/17 21:26; Admin Dose 650 MG; Start 06/16/17 at 18:00 Levofloxacin/ Dextrose 150 ml @ 100 mls/hr Q24H IVPB Last administered on 06/22 17:04; Admin Dose 100 MLS/HR; Start 06/16/17 at 18:00 Metronidazole (Flagyl 500 Mg (Pmx)) 100 ml @ 100 mls/hr Q8 IVPB Last administered on 06/23/17 13:18; Admin Dose 100 MLS/HR; Start 06/16/17 at 22:00 Diagnostic Test (Pha) (Accu-Chek) 1 ea 02 XX Last administered on 06/19/17 01: 20; Admin Dose 1 EA; Start 06/19/17 at 02:00 Atorvastatin Calcium (Lipitor) 40 mg QHS PO Last administered on 06/22/17 20: 34; Admin Dose 40 MG; Start 06/19/17 at 21:00 Losartan Potassium (Cozaar) 100 mg DAILY PO Last administered on 06/23/17 08:05 ; Admin Dose 100 MG; Start 06/19/17 at 14:00 Triamterene/HCTZ (Maxzide-25) 1 tab DAILY PO Last administered on 06/23/17 10: 18; Admin Dose 1 TAB; Start 06/20/17 at 09:00 Linagliptin (Tradjenta) 5 mg DAILY PO Last administered on 06/23/17 08:04; Admin Dose 5 MG; Start 06/20/17 at 15:00 Famotidine (Pepcid) 20 mg Q12 PO Last administered on 06/23/17 08:04; Admin Dose 20 MG; Start 06/19/17 at 21:00 Atenolol (Tenormin) 100 mg QHS PO Last administered on 06/22/17 20:34; Admin Dose 100 MG; Start 06/20/17 at 21:00 Tramadol HCl 50 mg 50 mg Q6H PRN PO PAIN LEVEL 1-5; Start 06/20/17 at 21:30 Ferric Sodium Gluconate Complex/ Sodium Chloride (Ferrlecit/NS) 110 ml @ 110 mls/hr Q24H IVPB Last administered on 06/22/17 23:04; Admin Dose 110 MLS/HR; Start 06/21/17 at 23:30; Stop 06/26/17 at 00:29 LUZ MARINA HENRIQUEZ Jun 23, 2017 13:55
--- NOTE | 2017-06-23 13:58 | PN ---
Date/Time of Note Date/Time of Note DATE: 06/23/17 TIME: 13:55 Assessment/Plan VTE Prophylaxis VTE Prophylaxis Intervention: ambulation, other Lines/Catheters IV Catheter Type (from Nrsg): Central Line Urinary Cath still in place: No Assessment/Plan Assessment/Plan 1. Stage IV endometrial cancer, status post total abdominal hysterectomy, bilateral salpingo-oophorectomy, ureteral dissection, cytoreduction and lymph node dissection. Continue to follow-up surgical recommendations. Continue Ultram and Dilaudid as needed for pain. 2. Hypertension. Continue Atenolol and Cozaar. 3. Diabetes mellitus. Continue Janumet and NovoLog per mild algorithm sliding scale. 4. Dyslipidemia. 5. Hypothyroidism. Continue levothyroxine. Further recommendations based on clinical course. Plan of care discussed with Dr. Dunlap. Subjective 24 Hr Interval Summary Free Text/Dictation ambulating in hallway, daughter at bed side- all Qs answered Respiratory: no complaints Cardiovascular: no complaints Gastrointestinal: no complaints Genitourinary: no complaints Musculoskeletal: no complaints Skin: no complaints Neurologic: no complaints Exam/Review of Systems Vital Signs Vitals Vital Signs Date Time Temp Pulse Resp B/P Pulse Ox O2 Delivery O2 Flow Rate FiO2 06/23/17 10:18 77 129/72 06/23/17 08:15 97.4 16 97 Intake and Output 06/22/17 06/22/17 06/23/17 15:00 23:00 07:00 Intake Total 100 ml 6090 ml 1412 ml Output Total 4400 ml 2100 ml Balance 100 ml 1690 ml -688 ml Exam Constitutional: alert, oriented, well developed Respiratory: clear to auscultation, normal air movement Cardiovascular: nl pulses, regular rate and rhythm Gastrointestinal: soft Musculoskeletal: nl extremities to inspection Extremities: normal pulses Neurological: nl mental status, nl speech Results Result Diagram: 06/22/1722 06/22/17521 Results 24 hrs Laboratory Tests Test 06/22/17 16:54 06/22/17 20:31 06/23/17 07:48 06/23/17 11:49 Bedside Glucose 200 106 128 106 Medications Medications Current Medications Diphenhydramine HCl (Benadryl) 25 mg Q6H PRN IV ITCHING; Start 06/14/17 at 15: 00 Ondansetron HCl 4 mg 4 mg Q6H PRN IV NAUSEA AND/OR VOMITING; Start 06/14/17 at 15:00 Potassium Chloride/Lactated Ringer's (KCl/Lr) 1,010 ml @ 60 mls/hr [id number] IV Last administered on 06/22/17 16:38; Admin Dose 60 MLS/HR; Start 06/14/17 at 14 :52 Hydralazine HCl (Apresoline) 10 mg Q4H PRN IV SBP >150 Last administered on 02:05; Admin Dose 10 MG; Start 06/14/17 at 17:00 Miscellaneous Information 1 ea NOTE XX ; Start 06/14/17 at 17:30 Glucose (Glutose) 15 gm Q15M PRN PO DECREASED GLUCOSE; Start 06/14/17 at 17:30 Glucose (Glutose) 22.5 gm Q15M PRN PO DECREASED GLUCOSE; Start 06/14/17 at 17: 30 Dextrose (D50w Syringe) 25 ml Q15M PRN IV DECREASED GLUCOSE; Start 06/14/17 at 17:30 Dextrose (D50w Syringe) 50 ml Q15M PRN IV DECREASED GLUCOSE; Start 06/14/17 at 17:30 Glucagon (Glucagen) 1 mg Q15M PRN IM DECREASED GLUCOSE; Start 06/14/17 at 17:30 Glucose (Glutose) 15 gm Q15M PRN BUCCAL DECREASED GLUCOSE; Start 06/14/17 at 17 :30 Levothyroxine Sodium (Synthroid) 75 mcg DAILY@06 PO Last administered on 05:27; Admin Dose 75 MCG; Start 06/17/17 at 06:00 Acetaminophen 650 mg 650 mg Q4H PRN PO PAIN AND OR ELEVATED TEMP Last administered on 06/18/17 21:26; Admin Dose 650 MG; Start 06/16/17 at 18:00 Levofloxacin/ Dextrose 150 ml @ 100 mls/hr Q24H IVPB Last administered on 06/22 17:04; Admin Dose 100 MLS/HR; Start 06/16/17 at 18:00 Metronidazole (Flagyl 500 Mg (Pmx)) 100 ml @ 100 mls/hr Q8 IVPB Last administered on 06/23/17 13:18; Admin Dose 100 MLS/HR; Start 06/16/17 at 22:00 Diagnostic Test (Pha) (Accu-Chek) 1 ea 02 XX Last administered on 06/19/17 01: 20; Admin Dose 1 EA; Start 06/19/17 at 02:00 Atorvastatin Calcium (Lipitor) 40 mg QHS PO Last administered on 06/22/17 20: 34; Admin Dose 40 MG; Start 06/19/17 at 21:00 Losartan Potassium (Cozaar) 100 mg DAILY PO Last administered on 06/23/17 08:05 ; Admin Dose 100 MG; Start 06/19/17 at 14:00 Triamterene/HCTZ (Maxzide-25) 1 tab DAILY PO Last administered on 06/23/17 10: 18; Admin Dose 1 TAB; Start 06/20/17 at 09:00 Linagliptin (Tradjenta) 5 mg DAILY PO Last administered on 06/23/17 08:04; Admin Dose 5 MG; Start 06/20/17 at 15:00 Famotidine (Pepcid) 20 mg Q12 PO Last administered on 06/23/17 08:04; Admin Dose 20 MG; Start 06/19/17 at 21:00 Atenolol (Tenormin) 100 mg QHS PO Last administered on 06/22/17 20:34; Admin Dose 100 MG; Start 06/20/17 at 21:00 Tramadol HCl 50 mg 50 mg Q6H PRN PO PAIN LEVEL 1-5; Start 06/20/17 at 21:30 Ferric Sodium Gluconate Complex/ Sodium Chloride (Ferrlecit/NS) 110 ml @ 110 mls/hr Q24H IVPB Last administered on 06/22/17 23:04; Admin Dose 110 MLS/HR; Start 06/21/17 at 23:30; Stop 06/26/17 at 00:29 LUZ MARINA HENRIQUEZ Jun 23, 2017 13:58
[2017-06-23 14:16] VITALS: BP 120/71; RESP 18
[2017-06-23] MEDS: LEVOFLOXACIN 750MG/D5W (PMX) 150 ML IVPB SCH (17:41)
[2017-06-23 19:58] VITALS: BP 129/80; RESP 20
[2017-06-23] MEDS: ATORVASTATIN 40 MG TAB PO SCH (20:24)
[2017-06-23] MEDS: ATENOLOL 50 MG TAB PO SCH (20:25)
[2017-06-24] MEDS: SOD FERRIC GLUC COMPLX 125 MG in SOD CHLORIDE 0.9% 100 ML IVPB SCH ×2 (01:13→23:02)
[2017-06-24] MEDS: ACCU-CHEK XX SCH (02:00)
[2017-06-24 02:23] VITALS: BP 111/56; RESP 20
[2017-06-24] MEDS: POTASSIUM CHLORIDE 20 MEQ in LACTATED RINGER'S 1,000 ML IV SCH (04:40)
[2017-06-24] MEDS: metroNIDAZOLE 500 MG/NS (PMX) 100 ML IVPB SCH ×3 (05:39→22:15)
[2017-06-24] MEDS: LEVOTHYROXINE 75 MCG TAB PO SCH (05:39)
[2017-06-24 06:01] LABS: BASOPHILS % 0.4 % (0.0-2.0); EOSINOPHILS # 0.3 10^3/ul (0.0-0.5); EOSINOPHILS % 2.8 % (0.0-7.0); HEMATOCRIT 27.9 % (37.0-47.0); HEMOGLOBIN 9.1 g/dl (12.0-16.0); LYMPHOCYTES # 1.7 10^3/ul (0.8-2.9); LYMPHOCYTES % 17.6 % (15.0-51.0); MEAN CORPUSCULAR HEMOGLOBIN 24.8 pg (29.0-33.0); MEAN CORPUSCULAR HGB CONC 32.6 g/dl (32.0-37.0); MONOCYTE # 0.5 10^3/ul (0.3-0.9); MONOCYTES % 4.6 % (0.0-11.0); NEUTROPHILS % 73.4 % (39.0-77.0); PLATELET COUNT 385 10^3/UL (140-415); RED BLOOD COUNT 3.67 10^6/ul (4.20-5.40); RED CELL DISTRIBUTION WIDTH 13.6 % (11.5-14.5); WHITE BLOOD COUNT 9.7 10^3/ul (4.8-10.8)
[2017-06-24 06:34] LABS: CALCIUM 8.4 mg/dl (8.4-10.2); CREATININE 0.89 mg/dl (0.44-1.00); POTASSIUM 4.1 mmol/L (3.5-5.1)
[2017-06-24 07:28] VITALS: BP 139/83; RESP 20
[2017-06-24] MEDS: INSULIN ASPART [NOVOLOG] 3 ML PEN SC SCH ×4 (08:15→21:00)
[2017-06-24] MEDS: metFORMIN 500 MG TAB PO SCH ×2 (08:16→17:21)
[2017-06-24] MEDS: LINAGLIPTIN 5 MG TABLET PO SCH (08:16)
[2017-06-24] MEDS: LOSARTAN 50 MG TAB PO SCH (08:16)
[2017-06-24] MEDS: TRIAMTERENE/HCTZ (37.5/25) TAB PO SCH (08:17)
[2017-06-24] MEDS: FAMOTIDINE 20 MG TAB PO SCH ×2 (08:17→21:11)
--- NOTE | 2017-06-24 10:13 | PN ---
Date/Time of Note Date/Time of Note DATE: 06/24/17 TIME: 10:12 Assessment/Plan VTE Prophylaxis VTE Prophylaxis Intervention: other Lines/Catheters IV Catheter Type (from Nrs): Central Line Central line still needed: Yes Urinary Cath still in place: No Assessment/Plan Chief Complaint/Hosp Course 1. Stage IV endometrial cancer, status post total abdominal hysterectomy, bilateral salpingo-oophorectomy, ureteral dissection, cytoreduction and lymph node dissection. Continue to follow-up surgical recommendations. Continue Ultram and Dilaudid as needed for pain. 2. Hypertension. Continue Atenolol and Cozaar. 3. Diabetes mellitus. Continue Janumet and NovoLog per mild algorithm sliding scale. 4. Dyslipidemia. 5. Hypothyroidism. Continue levothyroxine. Problems: Subjective 24 Hr Interval Summary Free Text/Dictation Patient has no complaints Exam/Review of Systems Vital Signs Vitals Vital Signs Date Time Temp Pulse Resp B/P Pulse Ox O2 Delivery O2 Flow Rate FiO2 06/24/17 07:28 98.8 76 20 139/83 98 Intake and Output 06/23/17 06/23/17 06/24/17 15:00 23:00 07:00 Intake Total 2520 ml 1610 ml Output Total 750 ml 2400 ml Balance 1770 ml -790 ml Exam Constitutional: well developed Head: atraumatic, normocephalic Neck: supple Respiratory: clear to auscultation Cardiovascular: regular rate and rhythm Gastrointestinal: soft Extremities: normal pulses Results Result Diagram: 06/24/17 0535 06/24/17 0535 Results 24 hrs Laboratory Tests Test 06/23/17 11:49 06/23/17 17:38 06/23/17 20:27 06/24/17 05:35 Bedside Glucose 106 123 122 White Blood Count 9.7 # Red Blood Count 3.67 L Hemoglobin 9.1 L Hematocrit 27.9 L Mean Corpuscular Volume 76.0 L Mean Corpuscular Hemoglobin 24.8 L Mean Corpuscular Hemoglobin Concent 32.6 Red Cell Distribution Width 13.6 Platelet Count 385 Mean Platelet Volume 10.0 Neutrophils % 73.4 Lymphocytes % 17.6 Monocytes % 4.6 Eosinophils % 2.8 Basophils % 0.4 Nucleated Red Blood Cells % 0.0 Neutrophils # (Manual) 7.1 Lymphocytes # 1.7 Monocytes # 0.5 Eosinophils # 0.3 Basophils # 0.0 Nucleated Red Blood Cells # 0.0 Sodium Level 138 Potassium Level 4.1 Chloride Level 104 Carbon Dioxide Level 27 Anion Gap 11 Blood Urea Nitrogen 11 Creatinine 0.89 Glucose Level 113 Calcium Level 8.4 Test 06/24/17 08:07 Bedside Glucose 119 Medications Medications Current Medications Diphenhydramine HCl (Benadryl) 25 mg Q6H PRN IV ITCHING; Start 06/14/17 at 15: 00 Ondansetron HCl 4 mg 4 mg Q6H PRN IV NAUSEA AND/OR VOMITING; Start 06/14/17 at 15:00 Potassium Chloride/Lactated Ringer's (KCl/Lr) 1,010 ml @ 60 mls/hr [id number] IV Last administered on 06/23/17 16:41; Admin Dose 60 MLS/HR; Start 06/14/17 at 14: 52 Hydralazine HCl (Apresoline) 10 mg Q4H PRN IV SBP >150 Last administered on 02:05; Admin Dose 10 MG; Start 06/14/17 at 17:00 Miscellaneous Information 1 ea NOTE XX ; Start 06/14/17 at 17:30 Glucose (Glutose) 15 gm Q15M PRN PO DECREASED GLUCOSE; Start 06/14/17 at 17:30 Glucose (Glutose) 22.5 gm Q15M PRN PO DECREASED GLUCOSE; Start 06/14/17 at 17: 30 Dextrose (D50w Syringe) 25 ml Q15M PRN IV DECREASED GLUCOSE; Start 06/14/17 at 17:30 Dextrose (D50w Syringe) 50 ml Q15M PRN IV DECREASED GLUCOSE; Start 06/14/17 at 17:30 Glucagon (Glucagen) 1 mg Q15M PRN IM DECREASED GLUCOSE; Start 06/14/17 at 17:30 Glucose (Glutose) 15 gm Q15M PRN BUCCAL DECREASED GLUCOSE; Start 06/14/17 at 17 :30 Levothyroxine Sodium (Synthroid) 75 mcg DAILY@06 PO Last administered on 05:39; Admin Dose 75 MCG; Start 06/17/17 at 06:00 Acetaminophen 650 mg 650 mg Q4H PRN PO PAIN AND OR ELEVATED TEMP Last administered on 06/18/17 21:26; Admin Dose 650 MG; Start 06/16/17 at 18:00 Levofloxacin/ Dextrose 150 ml @ 100 mls/hr Q24H IVPB Last administered on 17:41; Admin Dose 100 MLS/HR; Start 06/16/17 at 18:00 Metronidazole (Flagyl 500 Mg (Pmx)) 100 ml @ 100 mls/hr Q8 IVPB Last administered on 06/24/17 05:39; Admin Dose 100 MLS/HR; Start 06/16/17 at 22:00 Diagnostic Test (Pha) (Accu-Chek) 1 ea 02 XX Last administered on 06/19/17 01: 20; Admin Dose 1 EA; Start 06/19/17 at 02:00 Atorvastatin Calcium (Lipitor) 40 mg QHS PO Last administered on 06/23/17 20:24 ; Admin Dose 40 MG; Start 06/19/17 at 21:00 Losartan Potassium (Cozaar) 100 mg DAILY PO Last administered on 06/24/17 08:16 ; Admin Dose 100 MG; Start 06/19/17 at 14:00 Triamterene/HCTZ (Maxzide-25) 1 tab DAILY PO Last administered on 06/24/17 08: 17; Admin Dose 1 TAB; Start 06/20/17 at 09:00 Linagliptin (Tradjenta) 5 mg DAILY PO Last administered on 06/24/17 08:16; Admin Dose 5 MG; Start 06/20/17 at 15:00 Famotidine (Pepcid) 20 mg Q12 PO Last administered on 06/24/17 08:17; Admin Dose 20 MG; Start 06/19/17 at 21:00 Atenolol (Tenormin) 100 mg QHS PO Last administered on 06/23/17 20:25; Admin Dose 100 MG; Start 06/20/17 at 21:00 Tramadol HCl 50 mg 50 mg Q6H PRN PO PAIN LEVEL 1-5; Start 06/20/17 at 21:30 Ferric Sodium Gluconate Complex/ Sodium Chloride (Ferrlecit/NS) 110 ml @ 110 mls/hr Q24H IVPB Last administered on 06/24/17 01:13; Admin Dose 110 MLS/HR; Start 06/21/17 at 23:30; Stop 06/26/17 at 00:29 HEDY ANN 2, 2017 10:13
[2017-06-24 13:15] VITALS: BP 137/74; RESP 20
[2017-06-24] MEDS ORDERED: DIPHENHYDRAMINE 50 MG INJ IV PRN (17:00)
[2017-06-24] MEDS ORDERED: MEPERIDINE 25 MG INJ IV PRN (17:00)
[2017-06-24] MEDS ORDERED: METHYLPREDNISOLONE 125 MG INJ IV PRN (17:00)
[2017-06-24] MEDS: LEVOFLOXACIN 750MG/D5W (PMX) 150 ML IVPB SCH (17:21)
[2017-06-24] MEDS ORDERED: DEXAMETHASONE 4 MG TAB PO SCH ×2 (17:30→23:30)
[2017-06-24 19:41] VITALS: BP 130/72; RESP 18
[2017-06-24 21:10] VITALS: BP 130/65; PULSE 65
[2017-06-24] MEDS: SOD CHLORIDE 0.9% 1,000 ML IV SCH (21:10)
[2017-06-24] MEDS: ATORVASTATIN 40 MG TAB PO SCH (21:11)
[2017-06-24] MEDS: ATENOLOL 50 MG TAB PO SCH (21:12)
[2017-06-25] VITALS (28 sets, daily range): BP systolic 102–133; BP diastolic 62–89; PULSE 77–88; RESP 16–20
[2017-06-25] MEDS: ACCU-CHEK XX SCH (01:56)
[2017-06-25] MEDS: SOD CHLORIDE 0.9% 1,000 ML IV SCH ×4 (03:30→23:30)
[2017-06-25] MEDS ORDERED: DIPHENHYDRAMINE IV ONE (05:30)
[2017-06-25] MEDS ORDERED: ONDANSETRON INJ 16 MG, DEXAMETHASONE 4 MG/ML 10 MG in SOD CHLORIDE 0.9% 50 ML IV ONE (05:30)
[2017-06-25] MEDS ORDERED: FAMOTIDINE IV ONE ×6 (05:30→13:00)
[2017-06-25] MEDS ORDERED: SOD CHLORIDE 0.9% IV ONE (05:30)
[2017-06-25] MEDS: metroNIDAZOLE 500 MG/NS (PMX) 100 ML IVPB SCH ×3 (05:54→21:27)
[2017-06-25] MEDS: LEVOTHYROXINE 75 MCG TAB PO SCH (05:55)
[2017-06-25] MEDS ORDERED: PACLITAXEL IV SCH (06:00)
[2017-06-25] MEDS ORDERED: SOD CHLORIDE 0.9% IV SCH ×2 (06:00→10:00)
[2017-06-25] MEDS: FAMOTIDINE 20 MG TAB PO SCH ×2 (08:27→21:25)
[2017-06-25] MEDS: LINAGLIPTIN 5 MG TABLET PO SCH (08:27)
[2017-06-25] MEDS: metFORMIN 500 MG TAB PO SCH ×2 (08:28→17:58)
[2017-06-25] MEDS: TRIAMTERENE/HCTZ (37.5/25) TAB PO SCH (08:29)
[2017-06-25] MEDS: LOSARTAN 50 MG TAB PO SCH (08:29)
[2017-06-25] MEDS: INSULIN ASPART [NOVOLOG] 3 ML PEN SC SCH ×4 (08:56→21:24)
[2017-06-25] MEDS ORDERED: CARBOPLATIN IV SCH (10:00)
--- NOTE | 2017-06-25 11:42 | PN ---
Date/Time of Note Date/Time of Note DATE: 06/25/17 TIME: 11:42 Assessment/Plan VTE Prophylaxis VTE Prophylaxis Intervention: other Lines/Catheters IV Catheter Type (from Nrs): CENTRAL LINE Urinary Cath still in place: No Assessment/Plan Chief Complaint/Hosp Course 1. Stage IV endometrial cancer, status post total abdominal hysterectomy, bilateral salpingo-oophorectomy, ureteral dissection, cytoreduction and lymph node dissection. Continue to follow-up surgical recommendations. Continue Ultram and Dilaudid as needed for pain. 2. Hypertension. Continue Atenolol and Cozaar. 3. Diabetes mellitus. Continue Janumet and NovoLog per mild algorithm sliding scale. 4. Dyslipidemia. 5. Hypothyroidism. Continue levothyroxine. Problems: Subjective 24 Hr Interval Summary Free Text/Dictation Patient has no complaints Exam/Review of Systems Vital Signs Vitals Vital Signs Date Time Temp Pulse Resp B/P Pulse Ox O2 Delivery O2 Flow Rate FiO2 06/25/17 09:00 78 18 114/68 06/25/17 08:11 98.1 99 06/25/17 06:45 Room Air Intake and Output 06/24/17 06/24/17 06/25/17 14:59 22:59 06:59 Intake Total 600 ml 2020 ml 1743.0 ml Output Total 1550 ml 1800 ml Balance 600 ml 470 ml -57.0 ml Exam Constitutional: well developed Head: atraumatic, normocephalic Neck: supple Respiratory: clear to auscultation Cardiovascular: regular rate and rhythm Gastrointestinal: non-tender, soft Extremities: normal pulses Results Result Diagram: 06/24/17 0535 06/24/17 0535 Results 24 hrs Laboratory Tests Test 06/24/17 12:11 06/24/17 17:18 06/24/17 22:16 06/25/17 08:25 Bedside Glucose 106 128 172 217 Medications Medications Current Medications Diphenhydramine HCl (Benadryl) 25 mg Q6H PRN IV ITCHING; Start 06/14/17 at 15: 00 Ondansetron HCl (Zofran Inj) 4 mg Q6H PRN IV NAUSEA AND/OR VOMITING; Start at 15:00 Hydralazine HCl (Apresoline) 10 mg Q4H PRN IV SBP >150 Last administered on t 02:05; Admin Dose 10 MG; Start 06/14/17 at 17:00 Miscellaneous Information 1 ea NOTE XX ; Start 06/14/17 at 17:30 Glucose (Glutose) 15 gm Q15M PRN PO DECREASED GLUCOSE; Start 06/14/17 at 17:30 Glucose (Glutose) 22.5 gm Q15M PRN PO DECREASED GLUCOSE; Start 06/14/17 at 17: 30 Dextrose (D50w Syringe) 25 ml Q15M PRN IV DECREASED GLUCOSE; Start 06/14/17 at 17:30 Dextrose (D50w Syringe) 50 ml Q15M PRN IV DECREASED GLUCOSE; Start 06/14/17 at 17:30 Glucagon (Glucagen) 1 mg Q15M PRN IM DECREASED GLUCOSE; Start 06/14/17 at 17:30 Glucose (Glutose) 15 gm Q15M PRN BUCCAL DECREASED GLUCOSE; Start 06/14/17 at 17 :30 Levothyroxine Sodium (Synthroid) 75 mcg DAILY@06 PO Last administered on 05:55; Admin Dose 75 MCG; Start 06/17/17 at 06:00 Acetaminophen 650 mg 650 mg Q4H PRN PO PAIN AND OR ELEVATED TEMP Last administered on 06/18/17 21:26; Admin Dose 650 MG; Start 06/16/17 at 18:00 Levofloxacin/ Dextrose 150 ml @ 100 mls/hr Q24H IVPB Last administered on 17:21; Admin Dose 100 MLS/HR; Start 06/16/17 at 18:00 Metronidazole (Flagyl 500 Mg (Pmx)) 100 ml @ 100 mls/hr Q8 IVPB Last administered on 06/25/17 05:54; Admin Dose 100 MLS/HR; Start 06/16/17 at 22:00 Diagnostic Test (Pha) (Accu-Chek) 1 ea 02 XX Last administered on 06/19/17 01: 20; Admin Dose 1 EA; Start 06/19/17 at 02:00 Atorvastatin Calcium (Lipitor) 40 mg QHS PO Last administered on 06/24/17 21:11 ; Admin Dose 40 MG; Start 06/19/17 at 21:00 Losartan Potassium (Cozaar) 100 mg DAILY PO Last administered on 06/25/17 08:29 ; Admin Dose 100 MG; Start 06/19/17 at 14:00 Triamterene/HCTZ (Maxzide-25) 1 tab DAILY PO Last administered on 06/25/17 08: 29; Admin Dose 1 TAB; Start 06/20/17 at 09:00 Linagliptin (Tradjenta) 5 mg DAILY PO Last administered on 06/25/17 08:27; Admin Dose 5 MG; Start 06/20/17 at 15:00 Famotidine (Pepcid) 20 mg Q12 PO Last administered on 06/25/17 08:27; Admin Dose 20 MG; Start 06/19/17 at 21:00 Atenolol (Tenormin) 100 mg QHS PO Last administered on 06/24/17 21:12; Admin Dose 100 MG; Start 06/20/17 at 21:00 Tramadol HCl 50 mg 50 mg Q6H PRN PO PAIN LEVEL 1-5; Start 06/20/17 at 21:30 Ferric Sodium Gluconate Complex/ Sodium Chloride (Ferrlecit/NS) 110 ml @ 110 mls/hr Q24H IVPB Last administered on 06/24/17 23:02; Admin Dose 110 MLS/HR; Start 06/21/17 at 23:30; Stop 06/26/17 at 00:29 Diphenhydramine HCl (Benadryl) 25 mg Q2H PRN IV ALLERGIC REACTION; Start at 17:00 Methylprednisolone Sodium Succinate (Solu-Medrol) 60 mg Q2H PRN IV ALLERGIC REACTION; Start 06/24/17 at 17:00 Meperidine HCl 25 mg 25 mg Q4H PRN IV REACTION TO CHEMO; Start 06/24/17 at 17:00 Sodium Chloride 1,000 ml @ 100 mls/hr Q10H IV Last administered on 06/24/17 21 :10; Admin Dose 100 MLS/HR; Start 06/24/17 at 17:30 Carboplatin/ Carboplatin/ Sodium Chloride (Paraplatin/ Paraplatin/NS) 250 ml @ 83.333 mls/ hr ONCE IV ; Start 06/25/17 at 10:00; Stop 06/25/17 at 13:00 HEDY ANN Jun 25, 2017 11:42
[2017-06-25] MEDS ORDERED: [UNRECOGNIZED DRUG - OTHER] IV ONE ×5 (13:00)
[2017-06-25] MEDS ORDERED: ONDANSETRON IV ONE ×5 (13:00)
[2017-06-25] MEDS ORDERED: DEXAMETHASONE IV ONE ×5 (13:00)
--- NOTE | 2017-06-25 13:36 | CONS ---
Date/Time of Note Date/Time of Note DATE: 06/25/17 TIME: 13:32 Assessment/Plan Assessment/Plan Chief Complaint/Hosp Course 52 yo female with #Stage IV endometrial Cancer with questionable involvement in a 9mm solitary lung nodule -will plan to start carboplatin AUC 6/ Taxol 175 mg/m2, q 3 week dose. pt has started Taxol/ Carboplatin -picc line ordered -pt will need premedication with oral Decadron 20mg 12 hours and 6 hours prior -anti-emetic premeds will be ordered including Zofran, Decadron -check pre chemo CA 125 #iron deficiency anemia -2/2 blood loss from malignancy -continue Ferrlecit 125 mg IV x 5 days #post op pain -being managed by [facility]. -pt is currently on Dilaudid 0.5 mg IV q 2 hours prn pain #DM -continue to keep careful control of blood sugars while patient is healing form surgery -cont Metform -cont Janumet and NovoLog per mild algorithm sliding scale. #HTN -continue Cozaar and Atenolol Problems: (1) Diabetes Status: Chronic Qualifiers: (2) Anemia, iron deficiency Status: Chronic Qualifiers: Qualified Code: D50.0 - Iron deficiency anemia due to chronic blood loss (3) Endometrial cancer, FIGO stage SIXTO Status: Chronic (4) Hypertension Problems: Consultation Date/Type/Reason Admit Date/Time Jun 14, 2017 at 07:38 Initial Consult Date 06/21/17 Type of Consultation: Oncology Reason for Consultation stage IV endometrial cancer Referring Provider: HAILY KIMBROUGH MD 24 HR Interval Summary Free Text/Dictation pt started chemotherapy therapy. patient is tolerating chemotherapy thus far Exam/Review of Systems Vital Signs Vitals Vital Signs Date Time Temp Pulse Resp B/P Pulse Ox O2 Delivery O2 Flow Rate FiO2 06/25/17 09:00 78 18 114/68 06/25/17 08:11 98.1 99 06/25/17 06:45 Room Air Intake and Output 06/24/17 06/24/17 06/25/17 15:00 23:00 07:00 Intake Total 600 ml 2020 ml 1743.0 ml Output Total 1550 ml 1800 ml Balance 600 ml 470 ml -57.0 ml Exam Constitutional: alert, oriented Psych: no complaints Head: normocephalic Eyes: nl conjunctiva ENMT: nl external ears & nose Neck: non-tender, supple Respiratory: clear to auscultation Cardiovascular: regular rate and rhythm Gastrointestinal: soft Musculoskeletal: nl extremities to inspection Results Result Diagram: 06/24/1735 06/24/1735 Results 24 hrs Laboratory Tests Test 06/24/17 17:18 06/24/17 22:16 06/25/17 08:25 06/25/17 12:01 Bedside Glucose 128 172 217 215 Medications Medications Current Medications Diphenhydramine HCl (Benadryl) 25 mg Q6H PRN IV ITCHING; Start 06/14/17 at 15: 00 Ondansetron HCl (Zofran Inj) 4 mg Q6H PRN IV NAUSEA AND/OR VOMITING; Start at 15:00 Hydralazine HCl (Apresoline) 10 mg Q4H PRN IV SBP >150 Last administered on 02:05; Admin Dose 10 MG; Start 06/14/17 at 17:00 Miscellaneous Information 1 ea NOTE XX ; Start 06/14/17 at 17:30 Glucose (Glutose) 15 gm Q15M PRN PO DECREASED GLUCOSE; Start 06/14/17 at 17:30 Glucose (Glutose) 22.5 gm Q15M PRN PO DECREASED GLUCOSE; Start 06/14/17 at 17: 30 Dextrose (D50w Syringe) 25 ml Q15M PRN IV DECREASED GLUCOSE; Start 06/14/17 at 17:30 Dextrose (D50w Syringe) 50 ml Q15M PRN IV DECREASED GLUCOSE; Start 06/14/17 at 17:30 Glucagon (Glucagen) 1 mg Q15M PRN IM DECREASED GLUCOSE; Start 06/14/17 at 17:30 Glucose (Glutose) 15 gm Q15M PRN BUCCAL DECREASED GLUCOSE; Start 06/14/17 at 17 :30 Levothyroxine Sodium (Synthroid) 75 mcg DAILY@06 PO Last administered on 05:55; Admin Dose 75 MCG; Start 06/17/17 at 06:00 Acetaminophen 650 mg 650 mg Q4H PRN PO PAIN AND OR ELEVATED TEMP Last administered on 06/18/17 21:26; Admin Dose 650 MG; Start 06/16/17 at 18:00 Levofloxacin/ Dextrose 150 ml @ 100 mls/hr Q24H IVPB Last administered on 17:21; Admin Dose 100 MLS/HR; Start 06/16/17 at 18:00 Metronidazole (Flagyl 500 Mg (Pmx)) 100 ml @ 100 mls/hr Q8 IVPB Last administered on 06/25/17 05:54; Admin Dose 100 MLS/HR; Start 06/16/17 at 22:00 Diagnostic Test (Pha) (Accu-Chek) 1 ea 02 XX Last administered on 06/19/17 01: 20; Admin Dose 1 EA; Start 06/19/17 at 02:00 Atorvastatin Calcium (Lipitor) 40 mg QHS PO Last administered on 06/24/17 21:11 ; Admin Dose 40 MG; Start 06/19/17 at 21:00 Losartan Potassium (Cozaar) 100 mg DAILY PO Last administered on 06/25/17 08:29 ; Admin Dose 100 MG; Start 06/19/17 at 14:00 Triamterene/HCTZ (Maxzide-25) 1 tab DAILY PO Last administered on 06/25/17 08: 29; Admin Dose 1 TAB; Start 06/20/17 at 09:00 Linagliptin (Tradjenta) 5 mg DAILY PO Last administered on 06/25/17 08:27; Admin Dose 5 MG; Start 06/20/17 at 15:00 Famotidine (Pepcid) 20 mg Q12 PO Last administered on 06/25/17 08:27; Admin Dose 20 MG; Start 06/19/17 at 21:00 Atenolol (Tenormin) 100 mg QHS PO Last administered on 06/24/17 21:12; Admin Dose 100 MG; Start 06/20/17 at 21:00 Tramadol HCl 50 mg 50 mg Q6H PRN PO PAIN LEVEL 1-5; Start 06/20/17 at 21:30 Ferric Sodium Gluconate Complex/ Sodium Chloride (Ferrlecit/NS) 110 ml @ 110 mls/hr Q24H IVPB Last administered on 06/24/17 23:02; Admin Dose 110 MLS/HR; Start 06/21/17 at 23:30; Stop 06/26/17 at 00:29 Diphenhydramine HCl (Benadryl) 25 mg Q2H PRN IV ALLERGIC REACTION; Start at 17:00 Methylprednisolone Sodium Succinate (Solu-Medrol) 60 mg Q2H PRN IV ALLERGIC REACTION; Start 06/24/17 at 17:00 Meperidine HCl 25 mg 25 mg Q4H PRN IV REACTION TO CHEMO; Start 06/24/17 at 17:00 Sodium Chloride (NS) 1,000 ml @ 100 mls/hr Q10H IV Last administered on t 21:10; Admin Dose 100 MLS/HR; Start 06/24/17 at 17:30 TROY ANDREW M.D. Jun 25, 2017 13:36
[2017-06-25] MEDS: LEVOFLOXACIN 750MG/D5W (PMX) 150 ML IVPB SCH (18:04)
--- NOTE | 2017-06-25 20:47 | PN ---
Date/Time of Note Date/Time of Note DATE: 06/25/17 TIME: 20:43 Assessment/Plan VTE Prophylaxis VTE Prophylaxis Intervention: SCD's Lines/Catheters [facility] CENTRAL LINE Urinary Cath still in place: No Assessment/Plan Chief Complaint/Hosp Course stage IV endometrial cancer Problems: Assessment/Plan A- doing well P- anticipate d/c tomorrow if possible Subjective 24 Hr Interval Summary Free Text/Dictation Tolerating chemo. eating well and + flatus. Exam/Review of Systems Vital Signs Vitals Vital Signs Date Time Temp Pulse Resp B/P Pulse Ox O2 Delivery O2 Flow Rate FiO2 06/25/17 19:52 98.0 86 16 130/64 97 06/25/17 18:15 Room Air Intake and Output 06/24/17 06/24/17 06/25/17 14:59 22:59 06:59 Intake Total 600 ml 2020 ml 1743.0 ml Output Total 1550 ml 1800 ml Balance 600 ml 470 ml -57.0 ml Exam Resp- clear CVS- NSR Abd- soft NT Ext- NT no edema Results Result Diagram: 06/24/17 0535 06/24/17 0535 Results 24 hrs Laboratory Tests Test 06/24/17 22:16 06/25/17 08:25 06/25/17 12:01 06/25/17 17:57 Bedside Glucose 172 217 215 236 H Medications Medications Current Medications Diphenhydramine HCl (Benadryl) 25 mg Q6H PRN IV ITCHING; Start 06/14/17 at 15: 00 Ondansetron HCl (Zofran Inj) 4 mg Q6H PRN IV NAUSEA AND/OR VOMITING; Start at 15:00 Hydralazine HCl (Apresoline) 10 mg Q4H PRN IV SBP >150 Last administered on t 02:05; Admin Dose 10 MG; Start 06/14/17 at 17:00 Miscellaneous Information 1 ea NOTE XX ; Start 06/14/17 at 17:30 Glucose (Glutose) 15 gm Q15M PRN PO DECREASED GLUCOSE; Start 06/14/17 at 17:30 Glucose (Glutose) 22.5 gm Q15M PRN PO DECREASED GLUCOSE; Start 06/14/17 at 17: 30 Dextrose (D50w Syringe) 25 ml Q15M PRN IV DECREASED GLUCOSE; Start 06/14/17 at 17:30 Dextrose (D50w Syringe) 50 ml Q15M PRN IV DECREASED GLUCOSE; Start 06/14/17 at 17:30 Glucagon (Glucagen) 1 mg Q15M PRN IM DECREASED GLUCOSE; Start 06/14/17 at 17:30 Glucose (Glutose) 15 gm Q15M PRN BUCCAL DECREASED GLUCOSE; Start 06/14/17 at 17 :30 Levothyroxine Sodium (Synthroid) 75 mcg DAILY@06 PO Last administered on 05:55; Admin Dose 75 MCG; Start 06/17/17 at 06:00 Acetaminophen 650 mg 650 mg Q4H PRN PO PAIN AND OR ELEVATED TEMP Last administered on 06/18/17 21:26; Admin Dose 650 MG; Start 06/16/17 at 18:00 Levofloxacin/ Dextrose 150 ml @ 100 mls/hr Q24H IVPB Last administered on 18:04; Admin Dose 100 MLS/HR; Start 06/16/17 at 18:00 Metronidazole (Flagyl 500 Mg (Pmx)) 100 ml @ 100 mls/hr Q8 IVPB Last administered on 06/25/17 14:07; Admin Dose 100 MLS/HR; Start 06/16/17 at 22:00 Diagnostic Test (Pha) (Accu-Chek) 1 ea 02 XX Last administered on 06/19/17 01: 20; Admin Dose 1 EA; Start 06/19/17 at 02:00 Atorvastatin Calcium (Lipitor) 40 mg QHS PO Last administered on 06/24/17 21:11 ; Admin Dose 40 MG; Start 06/19/17 at 21:00 Losartan Potassium (Cozaar) 100 mg DAILY PO Last administered on 06/25/17 08:29 ; Admin Dose 100 MG; Start 06/19/17 at 14:00 Triamterene/HCTZ (Maxzide-25) 1 tab DAILY PO Last administered on 06/25/17 08: 29; Admin Dose 1 TAB; Start 06/20/17 at 09:00 Linagliptin (Tradjenta) 5 mg DAILY PO Last administered on 06/25/17 08:27; Admin Dose 5 MG; Start 06/20/17 at 15:00 Famotidine (Pepcid) 20 mg Q12 PO Last administered on 06/25/17 08:27; Admin Dose 20 MG; Start 06/19/17 at 21:00 Atenolol (Tenormin) 100 mg QHS PO Last administered on 06/24/17 21:12; Admin Dose 100 MG; Start 06/20/17 at 21:00 Tramadol HCl 50 mg 50 mg Q6H PRN PO PAIN LEVEL 1-5; Start 06/20/17 at 21:30 Ferric Sodium Gluconate Complex/ Sodium Chloride (Ferrlecit/NS) 110 ml @ 110 mls/hr Q24H IVPB Last administered on 06/24/17 23:02; Admin Dose 110 MLS/HR; Start 06/21/17 at 23:30; Stop 06/26/17 at 00:29 Diphenhydramine HCl (Benadryl) 25 mg Q2H PRN IV ALLERGIC REACTION; Start at 17:00 Methylprednisolone Sodium Succinate (Solu-Medrol) 60 mg Q2H PRN IV ALLERGIC REACTION; Start 06/24/17 at 17:00 Meperidine HCl 25 mg 25 mg Q4H PRN IV REACTION TO CHEMO; Start 06/24/17 at 17:00 Sodium Chloride (NS) 1,000 ml @ 100 mls/hr Q10H IV Last administered on 14:06; Admin Dose 100 MLS/HR; Start 06/24/17 at 17:30 HAILY KIMBROUGH MD Jun 25, 2017 20:47
[2017-06-25] MEDS: ATENOLOL 50 MG TAB PO SCH (21:25)
[2017-06-25] MEDS: ATORVASTATIN 40 MG TAB PO SCH (21:25)
[2017-06-25] MEDS: SOD FERRIC GLUC COMPLX 125 MG in SOD CHLORIDE 0.9% 100 ML IVPB SCH (23:20)
[2017-06-26 02:05] VITALS: BP 131/73; RESP 16
[2017-06-26] MEDS: ACCU-CHEK XX SCH (02:17)
[2017-06-26] MEDS: metroNIDAZOLE 500 MG/NS (PMX) 100 ML IVPB SCH ×2 (05:29→13:51)
[2017-06-26] MEDS: LEVOTHYROXINE 75 MCG TAB PO SCH (05:29)
[2017-06-26 07:41] VITALS: BP 118/74; RESP 19
[2017-06-26 07:44] VITALS: BP 118/74; RESP 19
[2017-06-26] MEDS: TRIAMTERENE/HCTZ (37.5/25) TAB PO SCH (08:30)
[2017-06-26] MEDS: metFORMIN 500 MG TAB PO SCH (08:30)
[2017-06-26] MEDS: LINAGLIPTIN 5 MG TABLET PO SCH (08:30)
[2017-06-26] MEDS: FAMOTIDINE 20 MG TAB PO SCH (08:30)
[2017-06-26] MEDS: LOSARTAN 50 MG TAB PO SCH (08:31)
[2017-06-26] MEDS: INSULIN ASPART [NOVOLOG] 3 ML PEN SC SCH ×2 (08:40→12:56)
--- NOTE | 2017-06-26 10:57 | PN ---
Date/Time of Note Date/Time of Note DATE: 06/26/17 TIME: 10:57 Assessment/Plan VTE Prophylaxis VTE Prophylaxis Intervention: other Lines/Catheters IV Catheter Type (from Nrsg): Central Line Central line still needed: Yes Urinary Cath still in place: No Assessment/Plan Chief Complaint/Hosp Course 1. Stage IV endometrial cancer, status post total abdominal hysterectomy, bilateral salpingo-oophorectomy, ureteral dissection, cytoreduction and lymph node dissection. Continue to follow-up surgical recommendations. Continue Ultram and Dilaudid as needed for pain. 2. Hypertension. Continue Atenolol and Cozaar. 3. Diabetes mellitus. Continue Janumet and NovoLog per mild algorithm sliding scale. 4. Dyslipidemia. 5. Hypothyroidism. Continue levothyroxine. Problems: Subjective 24 Hr Interval Summary Free Text/Dictation Patient has no complaints Exam/Review of Systems Vital Signs Vitals Vital Signs Date Time Temp Pulse Resp B/P Pulse Ox O2 Delivery O2 Flow Rate FiO2 06/26/17 07:44 98.0 73 19 118/74 98 06/25/17 18:15 Room Air Intake and Output 06/25/17 06/25/17 06/26/17 15:00 23:00 07:00 Intake Total 618.1 ml 1850 ml 1310 ml Output Total 1700 ml Balance 618.1 ml 1850 ml -390 ml Exam Constitutional: well developed Head: atraumatic, normocephalic Neck: supple Respiratory: clear to auscultation Cardiovascular: regular rate and rhythm Gastrointestinal: non-tender, soft Extremities: normal pulses Results Result Diagram: 06/24/17 0535 06/24/17 0535 Results 24 hrs Laboratory Tests Test 06/25/17 12:01 06/25/17 17:57 06/25/17 21:20 06/26/17 02:15 Bedside Glucose 215 236 H 240 H 217 Test 06/26/17 08:29 Bedside Glucose 174 Medications Medications Current Medications Diphenhydramine HCl (Benadryl) 25 mg Q6H PRN IV ITCHING; Start 06/14/17 at 15: 00 Ondansetron HCl (Zofran Inj) 4 mg Q6H PRN IV NAUSEA AND/OR VOMITING; Start at 15:00 Hydralazine HCl (Apresoline) 10 mg Q4H PRN IV SBP >150 Last administered on 02:05; Admin Dose 10 MG; Start 06/14/17 at 17:00 Miscellaneous Information 1 ea NOTE XX ; Start 06/14/17 at 17:30 Glucose (Glutose) 15 gm Q15M PRN PO DECREASED GLUCOSE; Start 06/14/17 at 17:30 Glucose (Glutose) 22.5 gm Q15M PRN PO DECREASED GLUCOSE; Start 06/14/17 at 17: 30 Dextrose (D50w Syringe) 25 ml Q15M PRN IV DECREASED GLUCOSE; Start 06/14/17 at 17:30 Dextrose (D50w Syringe) 50 ml Q15M PRN IV DECREASED GLUCOSE; Start 06/14/17 at 17:30 Glucagon (Glucagen) 1 mg Q15M PRN IM DECREASED GLUCOSE; Start 06/14/17 at 17:30 Glucose (Glutose) 15 gm Q15M PRN BUCCAL DECREASED GLUCOSE; Start 06/14/17 at 17 :30 Levothyroxine Sodium (Synthroid) 75 mcg DAILY@06 PO Last administered on 05:29; Admin Dose 75 MCG; Start 06/17/17 at 06:00 Acetaminophen 650 mg 650 mg Q4H PRN PO PAIN AND OR ELEVATED TEMP Last administered on 06/18/17 21:26; Admin Dose 650 MG; Start 06/16/17 at 18:00 Levofloxacin/ Dextrose 150 ml @ 100 mls/hr Q24H IVPB Last administered on 18:04; Admin Dose 100 MLS/HR; Start 06/16/17 at 18:00 Metronidazole (Flagyl 500 Mg (Pmx)) 100 ml @ 100 mls/hr Q8 IVPB Last administered on 06/26/17 05:29; Admin Dose 100 MLS/HR; Start 06/16/17 at 22:00 Diagnostic Test (Pha) (Accu-Chek) 1 ea 02 XX Last administered on 06/26/17 02: 17; Admin Dose 1 EA; Start 06/19/17 at 02:00 Atorvastatin Calcium (Lipitor) 40 mg QHS PO Last administered on 06/25/17 21:25 ; Admin Dose 40 MG; Start 06/19/17 at 21:00 Losartan Potassium (Cozaar) 100 mg DAILY PO Last administered on 06/26/17 08:31 ; Admin Dose 100 MG; Start 06/19/17 at 14:00 Triamterene/HCTZ (Maxzide-25) 1 tab DAILY PO Last administered on 06/26/17 08: 30; Admin Dose 1 TAB; Start 06/20/17 at 09:00 Linagliptin (Tradjenta) 5 mg DAILY PO Last administered on 06/26/17 08:30; Admin Dose 5 MG; Start 06/20/17 at 15:00 Famotidine (Pepcid) 20 mg Q12 PO Last administered on 06/26/17 08:30; Admin Dose 20 MG; Start 06/19/17 at 21:00 Atenolol (Tenormin) 100 mg QHS PO Last administered on 06/25/17 21:25; Admin Dose 100 MG; Start 06/20/17 at 21:00 Tramadol HCl (Ultram) 50 mg Q6H PRN PO PAIN LEVEL 1-5; Start 06/20/17 at 21:30 Diphenhydramine HCl (Benadryl) 25 mg Q2H PRN IV ALLERGIC REACTION; Start at 17:00 Methylprednisolone Sodium Succinate (Solu-Medrol) 60 mg Q2H PRN IV ALLERGIC REACTION; Start 06/24/17 at 17:00 Meperidine HCl 25 mg 25 mg Q4H PRN IV REACTION TO CHEMO; Start 06/24/17 at 17:00 Sodium Chloride (NS) 1,000 ml @ 100 mls/hr Q10H IV Last administered on 21:27; Admin Dose 100 MLS/HR; Start 06/24/17 at 17:30 HEDY ANN Jun 26, 2017 10:57
[2017-06-26] MEDS: SOD CHLORIDE 0.9% 1,000 ML IV SCH (12:56)
== END 2017-06-26 16:45 | disposition home or self-care (01) | DRG 741 ==
LOC: EDSTATUS 10:30 → REC 06-14 07:38 → MS2 06-14 17:50 → MS1 06-24 19:30
PROC: 0UT70ZZ Resection of Bilateral Fallopian Tubes, Open Approach (ICD-10-PCS; principal; 2017-06-16)
PROC: 07BD0ZZ Excision of Aortic Lymphatic, Open Approach (ICD-10-PCS; 2017-06-16)
PROC: 0UT20ZZ Resection of Bilateral Ovaries, Open Approach (ICD-10-PCS; 2017-06-16)
PROC: 0UT90ZZ Resection of Uterus, Open Approach (ICD-10-PCS; 2017-06-16)
PROC: 0TS80ZZ Reposition Bilateral Ureters, Open Approach (ICD-10-PCS; 2017-06-16)
PROC: 0DTS0ZZ (ICD-10-PCS; 2017-06-16)
PROC: 07BC0ZZ Excision of Pelvis Lymphatic, Open Approach (ICD-10-PCS; 2017-06-16)
DX: C54.1 Malignant neoplasm of endometrium (principal); N13.5 Crossing vessel and stricture of ureter without hydronephrosis; I10 Essential (primary) hypertension; D50.9 Iron deficiency anemia, unspecified; E11.9 Type 2 diabetes mellitus without complications; E03.9 Hypothyroidism, unspecified; E78.5 Hyperlipidemia, unspecified; Z79.4 Long term (current) use of insulin
CPT/HCPCS: 71010; 80048; 80053; 81001; 82962; 84703; 85025; 85610; 85730; 86304; 86850; 86900; 86901; 86920; 87040; 87086; 88305; 88307; J9045; J9267; A4310; J0360; J0690; J1100; J1170; J1200; J1644; J1815; J1956; J2250; J2405; J2710; J2765; J2795; J2916; J3480; J7030; J7040; J7050; J7120